=== PATIENT | female | born 1950 | race Caucasian/White ===

== ENCOUNTER → 2024-12-27 | Outpatient (CLI) | payer MEDICARE, SELFPAY ==
[2024-12-27 14:23] LABS: Hematocrit 32.5 % (37-47); Hemoglobin 11.0 g/dL (12.0-15.0); Immature Granulocytes Count 0.030 X10^3/uL (0.0-0.0); Mean Corp Hgb Conc 33.8 g/dL (32-36); Mean Corpuscular Volume 94.2 fL (81-99); Mean Platelet Vol. 9.3 fl (6.2-12.0); NRBC Flagged by Analyzer 0 % (0-5); Platelet Count 430 K/mm3 (150-450); RBC Distribution Width CV 12.8 % (11.6-14.6); RBC Distribution Width SD 44.3 fl (35.1-43.9); Red Blood Count 3.45 M/mm3 (4.2-5.4); White Blood Count 8.7 K/mm3 (4.4-11.0)
[2024-12-27 15:36] LABS: AST(SGOT) 23 U/L (<=31); Alanine Aminotransfer ALT/SGPT 11 U/L (<=34); Albumin, Serum 3.8 g/dL (3.4-4.8); Alkaline Phosphatase 178 U/L (35-104); Anion Gap 12 (5-15); BUN 17 mg/dL (4-19); BUN/Creat Ratio 22.7 RATIO (10-20); Calcium,Total 9.0 mg/dL (7.6-11.0); Carbon Dioxide 24.3 mmol/L (21.0-32.0); Chloride 100 mmol/L (98-108); Ferritin 257 ng/mL (22-378); Globulin 2.9 g/dL (2.2-4.2); Glucose 141 mg/dL (70-99); Potassium 3.9 mmol/L (3.3-5.1); Vitamin B12 576 pg/mL (180-914); Vitamin D,25 Hydroxy 14.5 ng/mL (30-100)
[2024-12-27 16:06] LABS: Iron 58 ug/dL (50-170); Iron Binding Capacity,Total 251 ug/dL (250-450); Iron Binding Capacity,Unsat 193 ug/dL (228-428); Magnesium 2.2 mg/dL (1.5-2.2)
[2024-12-27 17:42] LABS: FOLATES,SERUM (FOLIC ACID) 5.77 ng/mL (4.60-34.80)
--- OUTSIDE RECORDS SUMMARY | 2024-12-27 21:21 | XMS RPT_ITS | CCD ---
Author Organization [facility] Care Team Providers Care Compensation And Benefits Manager Name Role Phone SHARI, TAB Unavailable Unavailable SHARI, TAB Unavailable Unavailable SHARI, TAB Unavailable Unavailable SHARI, TAB Unavailable Unavailable SHARI, TAB Unavailable Unavailable Hubert Forrest MD Primary Care Provider Hubert Forrest MD Primary Care Provider Hubert Forrest Referring Unavailable Hubert Forrest Primary Care Unavailable Reddy Sanchez Attending Unavailable Hubert Forrest MD Primary Care Provider Negra IMMIGRATION CONSULTANT.Ban ZIMMERMAN Unavailable Marco Antonio IMMIGRATION CONSULTANT.Milton ZIMMERMAN Unavailable ALISHA TA Referring Unavailable HUBERT FORREST Primary Care Unavailable ALISHA TA Attending Unavailable BAN OMER Referring UnavailHUBERT [place] Primary Care Unavailable BAN OMER Attending UnavailHUBERT [place] Primary Care Unavailable HEENA LÓPEZ Attending Unavailable HUBERT FORREST Primary Care Unavailable HEENA LÓPEZ Attending Unavailable HUBERT FORREST Primary Care Unavailable JORDI MONREAL JR Attending Unavailable BAN OMER Referring Unavailabl HUBERT Pierre Primary Care Unavailable Allergies Allergy Classification Reported Allergen(s) Allergy Type Date of Onset Reaction(s) Facility (20 sources) amoxicillin; Translations: [AMOXICILLIN] Drug Allergy 0 Rash [facility] Repository (20 sources) atorvastatin; Translations: [ATORVASTATIN] Drug Allergy 3 Other: See Comments [facility] Rep[facility] (20 sources) codeine; Translations: [CODEINE] Drug Allergy 6 Intolerance [facility] Rep[facility] (20 sources) guaiFENesin; Translations: [GUAIFENESIN] Drug Allergy 2 Hives [facility] Repository (1 source) atorvastatin Drug Allergy 3 [facility] Repository Medications Current Medications Medication Drug Class(es) Dates Sig (Normalized) Sig (Original) clobetasol propionate 0.0005 mg/mg topical ointment (1 source) Corticosteroid Start: 05-28-2022 End: 06-27-2022 clobetasol (TEMOVATE) 0.05 % ointment Apply 1 application to affected area twice daily. 30 g 1 05/28/2022 06/27/2022 Active Comment on above: Apply 1 application to affected area twice daily. Lactobac no.41/Bifidobact no.7 (PROBIOTIC-10 ORAL) (18 sources) Lactobac no.41/Bifidobact no.7 (PROBIOTIC-10 ORAL) Take by mouth. Active Lactobac no.41/B ifidobact no.7 (PROBIOTIC-10 ORAL) Take by mouth. 0 Active Comment on above: Take by mouth. memantine hydrochloride 10 mg oral tablet (10 sources) Q-vrdyvz-B-aspartat e Receptor Antagonist Start: 4 End: 5 take 1 tablet by mouth twice daily memantine (NAMENDA) 10 mg tablet Take 1 tablet by mouth two times a day. (start after completing 5mg tab titration) 180 tablet 1 09/21/2024 03/20/2025 Active Start: 02-19-2024 End: 04-20-2024 memantine (NAMENDA) 5 mg tab let Take 1 tablet in AM x1 week, then increase to 1 tablet BID x1 week, then increase to 1 tablet in AM and 2 tablets in PM x1 week. After completing 5 mg Rx, then transition to 10mg tabs (separate Rx). 42 tablet 02/19/2024 04/20/2024 Discontinued omeprazole 20 mg delayed release oral capsule (20 sources) Proton Pump Inhibitor take 1 capsule by mouth once daily omeprazole (PRILOSEC) 20 mg capsule Take 20 mg by mouth once daily. Active Comment on above: Take 20 mg by mouth once daily. rosuvastatin calcium 20 mg oral tablet (20 sources) HMG-CoA Reductase Inhibitor Start: 2 End: 3 rosuvastatin (CRESTOR) 20 mg tablet take 1 tablet daily 90 tablet 3 04/13/2023 Active Start: 04-19-2020 End: 05-02-2022 take 1 tablet by mouth once daily rosuvastatin (CRESTOR) 20 mg tablet Take 1 tablet by mouth once daily. 90 tablet 3 04/22/2021 05/02/2022 Discontinued Comment on above: Take 1 tablet by rosemarie th once daily. take 1 tablet daily terbinafine 250 mg oral tablet (12 sources) Allylamine Antifungal Start: take 1 tablet by mouth once daily terbinafine HCl (LAMISIL) 250 mg tablet Take 1 tablet by mouth once daily. 30 tablet 2 10/23/2023 Active Completed/Discontinued Medications Medication Drug Class(es) Dates Sig (Normalized) Sig (Original) aspirin 81 mg delayed release oral tablet (2 sources) Platelet Aggregation Inhibitor, Nonsteroidal Anti-inflammatory Drug Start: 11-25-2012 End: 03-11-2022 take 1 tablet by mouth once daily aspirin, enteric coated (ADULT LOW DOSE ASPIRIN) 81 mg EC tablet Take 1 tablet by mouth once daily. 0 11/25/2012 03/11/2022 Discontinued Comment on above: Take 1 tablet by rosemarie th once daily. BENEFIBER, WHEAT DEXTRIN, ORAL (9 sources) End: 10-06-2022 BENEFIBER, WHEAT DEXTRIN, ORAL Take 1 teaspoonful by mouth every other day. 0 10/06/2022 Discontinued BENEFIBER, WHEAT DEXTRIN, ORAL Take 1 teaspoonful by mouth every other day. 0 Active Comment on above: Take 1 teaspoonful b y mouth every other day. famotidine 10 mg oral tablet (1 source) Histamine-2 Receptor Antagonist Start : 03-21 End: 03-07 take 1 tablet by mouth twice daily as needed for gastroesophageal reflux disease famotidine (PEPCID) 10 mg tablet Indications: Functional dyspepsia Take 1 tablet by mouth twice daily as needed (Heartburn). 60 tablet 2 03/21/2019 03/07/2021 Discontinued meloxicam 15 mg oral tablet (1 source) Nonsteroidal Anti-inflammatory Drug Start : 09-22 End: 09-23 -2021 take 1 tablet by mouth once daily at mealtime meloxicam (MOBIC) 15 mg tablet Indications: Foot pain, right Take 1 tablet by mouth once daily. Take with food. 30 tablet 1 09/22/2020 03/07/2021 Discontinued Methylcellulose (1 source) End: 03-07 take 2 tablets by mouth once daily methylcellulose (CITRUCEL ORAL) Take 2 tablets by mouth once daily. 03/07/2021 Discontinued sertraline 25 mg oral tablet (20 sources) Serotonin Reuptake Inhibitor Start : 10-21 End: 04-19 take 1 tablet by mouth once daily sertraline (ZOLOFT) 25 mg tablet Indications: Anxiety with depression Take 1 tablet by mouth once daily. 90 tablet 1 10/22/2023 11/30/2023 Discontinued Start: 05-05-2022 End: 11-30-2023 sertraline (ZOLOFT) 50 mg ta blet Indications: Depression, unspecified depression type take 1 tablet daily 90 tablet 3 05/04/2023 11/30/2023 Discontinued Start: 07-04-2020 End: 05-02-2022 take 1 tablet by mouth once daily sertraline (ZOLOFT) 50 mg tablet Indications: Depression, unspecified depression type Take 1 tablet by mouth once daily. 90 tablet 3 06/17/2021 05/02/2022 Discontinued Comment on above: Take 1 tablet by rosemarie th once daily. take 1 tablet daily Problems Active Problems Problem Classification Problem Date Documented Da te Episodic/Chronic Anxiety disorders (3 sources) Mixed anxiety and depressive disorder; Translations: [Other specified anxiety disorders] Onset: 11-30-2023 10-22-2023 Chronic Cancer of uterus (20 sources) Adenocarcinoma of endometrium; Translations: [Malignant neoplasm of endometrium] Onset: 09-02-2012 09-02-2012 Chronic Cardiac dysrhythmias (2 sources) Bradycardia; Translations: [Bradycardia, unspecified] Onset: 06-03-2023 04-01-2023 Episodic Conditions associated with dizziness or vertigo (3 sources) Dizziness; Translations: [Dizziness and giddiness] Episodic Coronary atherosclerosis and other heart disease (1 source) Atherosclerotic heart disease of creek coronary artery without angina pectoris; Translations: [Atherosclerotic heart disease of creek coronary artery without angina pectoris] Onset: 06-03-2023 Chronic Delirium, dementia, and amnestic and other cognitive disorders (3 sources) Dementia; Translations: [Moderate dementia with anxiety, unspecified dementia type (HCC)] 02-19-2024 Chronic Diseases of white blood cells (20 sources) Other drug-induced agranulocytosis; Translations: [Drug induced neutropenia] Onset: 01-26-2013 01-26-2013 Chronic Disorders of lipid metabolism (20 sources) Mixed hyperlipidemia; Translations: [Mixed hyperlipidemia] Onset: 06-17-2010 10-06-2017 Chronic Essential hypertension (20 sources) Hypertensive disorder; Translations: [Essential (primary) hypertension] Onset: 06-03-2023 09-24-2012 Chronic Mood disorders (20 sources) Depressive disorder; Translations: [Depression] Onset: 10-06-2022 07-28-2017 Chronic Nutritional deficiencies (20 sources) Deficiency of macronutrients; Translations: [Unspecified protein-calorie malnutrition] Onset: 10-06-2022 Chronic Osteoarthritis (20 sources) Degenerative joint disease involving multiple joints; Translations: [Polyosteoarthritis, unspecified] Onset: 08-05-2005 08-05-2005 Chronic Other and unspecified benign neoplasm (2 sources) Neuroma; Translations: [Benign neoplasm of peripheral nerves and autonomic nervous system, unspecified] 01-07-2024 Episodic Other connective tissue disease (2 sources) Pain in toe; Translations: [Pain in left toe(s)] 10-22-2023 Episodic Other connective tissue disease (1 source) Pain in right foot; Translations: [Pain in right foot] 09-22-2020 Episodic Other ear and sense organ disorders (2 sources) Ear pressure sensation; Translations: [Other specified disorders of ear, bilateral] Episodic Other gastrointestinal disorders (20 sources) Constipation; Translations: [Constipation, unspecified] 07-01-2005 Episodic Other nervous system disorders (2 sources) Impairment of balance; Translations: [Other abnormalities of gait and mobility] Episodic Other nervous system disorders (2 sources) Finding of hand region; Translations: [Tremor, unspecified] Episodic Other nutritional; endocrine; and metabolic disorders (2 sources) Weight loss; Translations: [Abnormal weight loss] Episodic Other screening for suspected conditions (not mental disorders or infectious disease) (2 sources) Mammography abnormal; Translations: [Other abnormal and inconclusive findings on diagnostic imaging of breast] Episodic Other skin disorders (1 source) Dystrophia unguium; Translations: [Nail dystrophy] 01-07-2024 Episodic Peripheral and visceral atherosclerosis (20 sources) Vascular disorder; Translations: [Peripheral vascular disease, unspecified] Onset: 05-31-2012 05-31-2012 Chronic Residual codes; unclassified (1 source) Postmenopausal state; Translations: [Asymptomatic menopausal state] Episodic Unclassified (1 source) Unknown / UNK(Unknown) Onset: 04-02-2017 Unclassified (1 source) Moderate dementia with anxiety, unspecified dementia type (HCC); Translations: [Moderate dementia with anxiety, unspecified dementia type (HCC)] Onset: 09-21-2024 Past or Other Problems Problem Classification Problem Date Documented Da te Episodic/Chronic Abdominal pain (20 sources) Right lower quadrant pain; Translations: [Right lower quadrant pain] Onset: 06-17-2011 Resolved: 06-23-2017 07-03-2017 Episodic Allergic reactions (20 sources) Solar degeneration; Translations: [Other skin changes due to chronic exposure to nonionizing radiation] Onset: 08-08-2009 Resolved: 06-23-2017 06-17-2010 Episodic Deficiency and other anemia (20 sources) Anemia; Translations: [Anemia, unspecified] Onset: 02-16-2013 02-16-2013 Episodic Gastritis and duodenitis (20 sources) Gastritis; Translations: [Gastritis, unspecified, without bleeding] Onset: 01-07-2007 Resolved: 01-07-2007 01-07-2007 Episodic Menopausal disorders (15 sources) Atrophy of vagina; Translations: [Postmenopausal atrophic vaginitis] Onset: 08-17-2012 Resolved: 04-16-2016 Chronic Mycoses (3 sources) Onychomycosis; Translations: [Tinea unguium] Onset: 01-07-2024 10-22-2023 Episodic Other and unspecified benign neoplasm (20 sources) Melanocytic nevus of trunk; Translations: [Melanocytic nevi of trunk] Onset: 08-08-2009 Resolved: 06-23-2017 06-17-2010 Episodic Other and unspecified benign neoplasm (1 source) Benign neoplasm of peripheral nerves and autonomic nervous system, unspecified; Translations: [Neuroma] Onset: 01-07-2024 Episodic Other connective tissue disease (1 source) Pain in left toe(s); Translations: [Pain around toenail, left foot] Onset: 01-07-2024 Episodic Other disorders of stomach and duodenum (20 sources) Nonulcer dyspepsia; Translations: [Functional dyspepsia] Onset: 07-03-2017 07-03-2017 Episodic Other gastrointestinal disorders (2 sources) Alteration in bowel elimination; Translations: [Change in bowel habit] Onset: 07-03-2017 07-03-2017 Episodic Other gastrointestinal disorders (20 sources) Altered bowel function; Translations: [Change in bowel habit] Onset: 07-03-2017 07-03-2017 Episodic Other nervous system disorders (4 sources) Other symptoms and signs involving cognitive functions and awareness; Translations: [Other signs and symptoms involving cognition] Onset: 11-30-2023 11-30-2023 Episodic Other non-epithelial cancer of skin (14 sources) History of malignant neoplasm of skin; Translations: [Personal history of other malignant neoplasm of skin] Onset: 08-08-2009 Resolved: 06-17-2010 06-17-2010 Episodic Other nutritional; endocrine; and metabolic disorders (20 sources) Abnormal weight loss; Translations: [Abnormal weight loss] Onset: 07-03-2017 07-03-2017 Episodic Other skin disorders (14 sources) Actinic keratosis; Translations: [Actinic keratosis] Onset: 08-08-2009 Resolved: 06-17-2010 06-17-2010 Episodic Other skin disorders (20 sources) Seborrheic keratosis; Translations: [Other seborrheic keratosis] Onset: 08-08-2009 Resolved: 06-23-2017 06-17-2010 Episodic Other skin disorders (20 sources) Solar lentigo; Translations: [Other melanin hyperpigmentation] Onset: 08-08-2009 Resolved: 06-23-2017 06-17-2010 Episodic Other skin disorders (14 sources) Scar conditions and fibrosis of skin; Translations: [Scar conditions and fibrosis of skin] Onset: 08-08-2009 Resolved: 06-17-2010 06-17-2010 Episodic Other skin disorders (14 sources) Inflamed seborrheic keratosis; Translations: [Inflamed seborrheic keratosis] Onset: 11-10-2011 Resolved: 06-23-2017 06-23-2017 Episodic Other skin disorders (14 sources) Idiopathic guttate hypomelanosis; Translations: [Other specified disorders of pigmentation] Onset: 11-10-2011 Resolved: 06-23-2017 06-23-2017 Episodic Other skin disorders (14 sources) Asteatosis cutis; Translations: [Xerosis cutis] Onset: 07-22-2013 Resolved: 06-23-2017 06-23-2017 Episodic Syncope (1 source) Syncope and collapse Onset: 04-02-2017 Episodic Viral infection (14 sources) Verruca vulgaris; Translations: [Viral wart, unspecified] Onset: 07-22-2013 Resolved: 06-23-2017 06-23-2017 Episodic Results Test Name Value Interpretation Reference Range Facility CNOVon 09-21-2024 CNOV Office Visit (NEMOWS ) ----- JENNIFER BARBOZA ([id number]) 1950 F Date Time Provider Department 09/21/24 1:30 PM HEENA LÓPEZ During your visit today, we recorded the following information about you: Pulse Blood pressure Weight 86/minute 102/74 54 kg Heena López PA-C 09/21/2024 2:32 PM Signed [facility] Name: Jennifer Barboza Age: [age] year old Gender: female Primary Care Provider: Hubert Forrest MD 09/21/2024 - General Neurology, Heena López PA-C ASSESSMENT ASSESSMENT/PLAN: 1. Moderate dementia with anxiety, unspecified dementia type (HCC) - ICD9: 294.21, ICD10: F03.B4 Patient and family present for follow-up, feel the patient is doing well, stable. Still living alone, weight and appetite are stable. Doing well on Namenda 10 mg twice daily without any side effects. MoCA slightly decreased from previous but patient and daughter reporting worsening hearing. Has not had her hearing aids checked since last year, recommended having this evaluation done. Does report some worsening anxiety, did increase Zoloft to primary care about reports it did not help with the mood and just made her more sedated. Discussed medications that may be helpful, deferring to primary care judgment. Discussed possible referral to geriatric psych in the future should it be needed. No falls, no aggression, personality changes, wandering, hallucinations. Sleep has been stable, appetite has been stable. No other new concerns today. Will continue with Namenda 10 mg twice daily and encouraged increasing physical and cognitive activity. Patient currently lives alone but has daily visitors, no longer driving, we will continue to monitor. Patient agreeable to treatment plan of care at this time, all questions were answered. Patient to follow-up in 6 months. Alzheimer's Society: Join to learn about many resources and supports for you, as the caregiver Community Resources: E.g. [facility] Dementia [facility] on the [place] side [facility]. CERTIFIED PROSTHETIST/OT/PT: Speech therapy, Occupational therapy, Physical Therapy Driving: Do you have safety concerns? Power of [employer]/ planning of the patient's will Project Lifesaver: Local police will keep records of your loved one if they tend to get lost, and will bring them home. Lifeline: emergency response button/necklace/bracelet Caregiver Health: Important to ensure you are taking care of your mental and physical health so you can care for your loved one SW consult: Do you want a social work referral to understand what resources are available to you? This is a 74 year old female followed for memory loss Current medication treatment: Namenda 10 mg twice daily Indication for repeat cognitive testing: No No diagnosis found. Return in about 6 months (around 03/23/2025). Chart, labs,and relevant images reviewed. Chief Complaint:Patient presents with: Established Patient: C/o not being to cure issues, daughter feels it helps a little, no decline since medication Chart Review: 04/20/24 Last Filed Values Date of Most Recent Assessment and Plan 04/20/24 Specialty General Neurology Assessment ASSESSMENT/PLAN: 1. Cognitive changes - ICD9: 799.59, ICD10: R41.89 (primary diagnosis) 2. Moderate dementia with anxiety, unspecified dementia type (HCC) - ICD9: 294.21, ICD10: F03.B4 Patient with likely mild to moderate dementia based off of MRI imaging, MoCA testing. Was started on Namenda at last appointments with titration up to 10 mg twice daily and that she is doing well with this. Daughter noting some subjective improvement in word recall and patient reporting that its helpful for her anxiety. Would like to continue this medication. Deferring any further workup at this time including neuropsychological testing. Patient does live alone in a condo, but daughter visits twice a day and she does have neighbors close by. Is fairly physically active and cognitively active, does have some difficulty maintaining weight but actually gained a few pounds since last appointment. However, due to weight being an issue will avoid Aricept. At this time, encouraged conservative therapy including physical and cognitive activity and will continue Namenda 10 mg twice daily. No new symptoms that would warrant additional workup. Discussed with daughter if resources are ever needed or if she ever needs help to reach out to him would be happy to discuss resources available in the area. Patient otherwise doing well, patient does not drive. Patient and daughter agreeable to treatment plan of care at this time, questions were answered. Patient to follow-up in 4 to 5 months. Heena López PA-C HPI: Last seen for memory concerns on 04/20/24. Doing well on namenda 10mg bid, deferring any further work up, visits by daughter twice daily. Weight stable. [place] (more content not included)... Normal [facility] CNOVon 04-20-2024 CNOV Office Visit (PATEL ) ----- JENNIFER BARBOZA ([id number]) 1950 F Date Time Provider Department 04/20/24 12:30 PM HEENA LÓPEZ During your visit today, we recorded the following information about you: Pulse Blood pressure Weight 60/minute 161/75 53.7 kg Heena López PA-C 04/20/2024 1:21 PM Signed [facility] Name: Jennifer Barboza Age: [age] year old Gender: female Primary Care Provider: Hubert Forrest MD 04/20/2024 - General Neurology, Heena Lpóez PA-C ASSESSMENT ASSESSMENT/PLAN: 1. Cognitive changes - ICD9: 799.59, ICD10: R41.89 (primary diagnosis) 2. Moderate dementia with anxiety, unspecified dementia type (HCC) - ICD9: 294.21, ICD10: F03.B4 Patient with likely mild to moderate dementia based off of MRI imaging, MoCA testing. Was started on Namenda at last appointments with titration up to 10 mg twice daily and that she is doing well with this. Daughter noting some subjective improvement in word recall and patient reporting that its helpful for her anxiety. Would like to continue this medication. Deferring any further workup at this time including neuropsychological testing. Patient does live alone in a condo, but daughter visits twice a day and she does have neighbors close by. Is fairly physically active and cognitively active, does have some difficulty maintaining weight but actually gained a few pounds since last appointment. However, due to weight being an issue will avoid Aricept. At this time, encouraged conservative therapy including physical and cognitive activity and will continue Namenda 10 mg twice daily. No new symptoms that would warrant additional workup. Discussed with daughter if resources are ever needed or if she ever needs help to reach out to him would be happy to discuss resources available in the area. Patient otherwise doing well, patient does not drive. Patient and daughter agreeable to treatment plan of care at this time, questions were answered. Patient to follow-up in 4 to 5 months. Heena López PA-C This is a 74 year old female followed for memory loss. Current medication treatment: Namenda 10mg bid Indication for repeat cognitive testing: No No diagnosis found. No follow-ups on file. Chart, labs,and relevant images reviewed. Chief Complaint:No chief complaint on file. Chart Review: 02/19/[address] Monreal ASSESSMENT/PLAN: 1. Moderate dementia with anxiety, unspecified dementia type (HCC) - ICD9: 294.21, ICD10: F03.B4 (primary diagnosis) 2. Cognitive changes - ICD9: 799.59, ICD10: R41.89 Patient with history and exam findings to suggest a moderate progressive dementia with associated anxiety. MRI brain completed as above, and while not a volumetric study, showing moderate atrophy for age of both cortical and central nature. Metabolic causes have been ruled out, and pt history and MRI not suggestive of NPH. No clear history to suggest pseudodementia. Pattern of cognitive change and imaging not suggestive of a vascular dementia. No changes on MRI to suggest CAA. Given family history, suspect neurodegenerative process and possible Alzheimer's type dementia. Dx d/w pt and her daughter. At this time, I do not feel benefit in further imaging, with pt not wanting any further testing and daughter agrees. However, do feel attempts to treat and slow progression of disease is appropriate. D/w pt and daughter treatment options and will initiate Namenda 5mg that will be titrated up to 10mg BID over next 4 weeks. SE and ADRs d/w pt and daughter. In addition discussed the need for additional care at home, and feel that patient should NOT drive or operate heavy machinery. Daughter states they are working on increasing patient care at this time. I have also encouraged brain exercises and attempts to increase social interaction. Patient will follow up in ~3 months or sooner prn. Jordi Monreal MD HPI: Last saw Dr. Monreal, one year of progressive cognitive decline, however, daughter notes longer. [place] , MRI showing atrophy. Concerned for dementia, alzheimers. Started [id number] bid, working on pt care. Patient presents with her daughter for follow-up appointment. At last appointment she was found to have mild to moderate dementia, concerning for Alzheimer based off previous imaging and MoCA. Deferring further testing at this time. Was placed on Namenda 10 mg twice daily and notes improvement in her anxiety since starting this. Daughter notes improvement in some of her short-term memory and word recall. Notes that she no longer takes a long time to search for certain words. No side effects with it including lightheadedness, GI upset or other. No falls since last appointment, no new concerns or symptoms today. Notes that her sleep has been stable, no wandering or worsening confusion in the evening. Pa (more content not included)... [facility] [facility] CNOV Office Visit (NEMOWS ) ----- JENNIFER [id number]) 1950 F Date Time Provider Department 02/19/24 9:20 AM JORDI MONREAL JR During your visit today, we recorded the following information about you: Pulse Blood pressure Weight 57/minute 137/71 52.3 kg Jordi Monreal Jr., MD 02/21/2024 10:07 PM Signed NEW PATIENT (CONSULT) HISTORY AND PHYSICAL EXAM PRIMARY CARE PHYSICIAN: Hubert Forrest MD REASON FOR CONSULT: Memory loss REFERRING PHYSICIAN: Ban Omer APRN.C* CHIEF COMPLAINT: Memory loss Consultation requested by Ban Omer APRN.C* for an opinion regarding chief complaint of Patient presents with: New Patient: Memory difficulty, family hx alz and my final recommendations will be communicated back to the requesting physician by way of shared medical record or letter via US mail. HISTORY OF PRESENT ILLNESS: Jennifer Barboza is a 74 year old female, BMI 18.35 kg/m2 with a PMH significant for that noted below. Presents for approximately 1 year history of progressive cognitive decline. However, daughter present and feels that symptoms might have started in 2018. Pt's mother was diagnosed with dementia in 1993 while in later 60's. Patient lives by self. Patient states in the past year does not react to things going on on the road as well although no MVAs - pt quit driving on her own. Always feels like things were changing but does not specify. Daughter provides history of pt having difficulties keeping weight on and forgetting meals. Daughter does grocery shopping. Forgets immediate close family members names. Forgets stories that happened within 24 hours. Struggles with numbers and daughter has taken over bank accounts and paying bills. No longer can write a list. Daughter feels more progressive than abrupt decline. Pt's passed in 2019 which might have accelerated decline per pt's daughter. Pt with hearing aids for 10 years, but although unchanged, pt acts like they are brand new per daughter. No longer can make coffee. However, daughter feels still safe at moment but working towards 24 hour care. No history of leaving water running, stove top on, or getting lost when was driving. Pt denies depression or anxiety but just states sometimes it is good and sometimes it is bad. Daughter feels pt more anxious. Modified MOCA: Immediate recall: 08/17, 3/5, 4/5 Number repeat: 2 Sentence repeat: 07/17 Serial 7s: 100-93-93 06/17 Abstract: 07/17 Orientation: Sept, ?, ?, Wed, ? 07/21 Delayed recall: 07/20 Namin/3 Clock draw: ([place] only) 06/17 MRI brain on 10/31/22 per rad report: Parenchyma: There is moderate generalized parenchymal volume loss. The brain parenchyma is otherwise within normal limits of signal intensity and morphology. Ventricles: Ventriculomegaly corresponds to the degree of parenchymal volume loss. TSH Date Value Ref Range Status 10/07/2022 2.830 0.270 - 4.200 mIU/L Final Vitamin B12 Date Value Ref Range Status 10/07/2022 436 232 - 1,245 pg/mL Final REVIEW OF SYSTEMS GENERAL:No weight loss, malaise or fevers. HEENT:Negative for frequent or significant headaches, No changes in hearing or vision, no nose bleeds or other nasal problems NECK:Negative for lumps, goiter, pain and significant neck swelling RESPIRATORY: Negative for cough, wheezing or shortness of breath. CARDIOVASCULAR: Negative for chest pain or palpitations. GASTROINTESTINAL: Negative for abdominal discomfort, blood in stools or black stools or change in bowel habits GENITOURINARY: No history of dysuria, frequency or incontinence MUSCULOSKELETAL: Negative for joint pain or swelling, back pain or muscle pain. NEUROLOGIC:Negative for focal numbness or weakness, headaches and dizziness or syncope, vision changes, speech/language changes, changes in gait or falls -- besides those complaints as above in HPI. SKIN:Negative for lesions, rash, and itching. PSYCHIATRIC: Negative for sleep disturbance, mood disorder and recent psychosocial stressors. LAB/IMAGING: Reviewed and include: WBC (k/uL) Date Value 10/07/2022 7.30 RBC (m/uL) Date Value 10/07/2022 3.62 (L) Hemoglobin (g/dL) Date Value 10/07/2022 11.8 Hematocrit (%) Date Value 10/07/2022 35.6 (L) MCV (fL) Date Value 10/07/2022 98.3 MCH (pg) Date Value 10/07/2022 32.6 MCHC (g/dL) Date Value 10/07/2022 33.1 RDW-CV (%) Date Value 10/07/2022 12.4 Platelet Count (k/uL) Date Value 10/07/2022 297 MPV (fL) Date Value 10/07/2022 10.2 Glucose (mg/dL) Date Value 10/07/2022 85 BUN (mg/dL) Date Value 10/07/2022 15 Creatinine (mg/dL) Date Value 10/07/2022 0.87 Sodium (mmol/L) Date Value 10/07/2022 141 Potassium (mmol/L) Date Value 10/07/2022 3.8 Chloride (mmol/L) Date Value 10/07/2022 104 CO2 (mmol/L) Date Value 10/07/2022 26 Protein, Total (g/dL) Date V (more content not included)... Normal [facility] CNOVon 01-07-2024 CNOV Office Visit (PODIWS ) ----- JENNIFER BARBOZA ([id number]) 1950 F Date Time Provider Department 01/07/24 10:00 AM ALISHA TA PODIWS During your visit today, we recorded the following information about you: Dilcia Barboza LPN 01/07/2024 12:56 PM Signed AMB ROOMING INTAKE FLOWSHEET DATA Pain Pain Level: 5 Pain Location: Toe Description: Sore Duration Amount of Time: 6 Duration Units: Months Frequency: Intermittent Intervention/Comfort measure: Reposition, Relaxation Patient presents with: Left Great Toe - New, Nail Fungus Right Great Toe - New, Nail Fungus, Mass, Pain DENZEL Ang Matthew 01/07/2024 12:56 PM Signed Consultation requested by Dr. Omer for an opinion regarding nail deformity and pain in left foot. My final recommendations will be communicated back to the requesting physician by way of shared Medical record or letter to requesting physician via US mail. Initial Podiatric Office Visit: Chief Complaint: This 73 year old female who presents with chief complaint:b/l great toenail pain and pain to ball of left foot HPI Edwin presents to clinic for evaluation of b/l feet Her primary issue is pain to b/l great toenail. Has been present since early 2023. She treats the nails with debridement. She denies any history of trauma. She has been on lamisil and is tolerating this medication nicely. 2. Also complains of pain to the ball of left foot. Patient states the pain is present whenever she is walking. Does not matter if she is wearing a shoe or not. PAIN EVALUATION 01/07/2024 1017 Pain Level: 5 Pain Location: Toe Description: Sore Duration Amount of Time: 6 Duration Units: Months Frequency: Intermittent Intervention/Comfort measure: Reposition;Relaxation No results found for: HBA1C PCP: Hubert Forrest MD PAST MEDICAL HISTORY Diagnosis Date Acute gastritis without mention of hemorrhage chronic CAD (coronary artery disease) Heart cath (06/2010) showed small vessel disease Depressive disorder, not elsewhere classified chronic depression Diverticulosis of colon (without mention of hemorrhage) 07/31/05 Endometrial cancer (HCC) partial cervix remains Generalized osteoarthrosis, unspecified site hands HTN (hypertension) Internal hemorrhoids without mention of complication 07/31/05 PMH - PAST MEDICAL HISTORY OF climacteric Snoring Unspecified constipation Current Outpatient Medications Medication Sig terbinafine HCl (LAMISIL) 250 mg tablet Take 1 tablet by mouth once daily. rosuvastatin (CRESTOR) 20 mg tablet take 1 tablet daily Lactobac no.41/Bifidobact no.7 (PROBIOTIC-10 ORAL) Take by mouth. omeprazole (PRILOSEC) 20 mg capsule Take 20 mg by mouth once daily. (Patient not taking: Reported on 04/01/2023) No current facility-administered medications for this visit. ALLERGIES Allergen Reactions Codeine Intolerance hallucinations Lipitor [Atorvastat* Other: See Comments Muscle cramps and joint pains Mucinex [Guaifenesi* Hives Amoxacillin [Amoxic* Rash PAST SURGICAL HISTORY Procedure Laterality Date COLONOSCOPY FLX DX W/COLLJ SPEC WHEN PFRMD 07/31/05 Per repeat in COLONOSCOPY FLX DX W/COLLJ SPEC WHEN PFRMD 07/03/14 Colonoscopy ESOPHAGOGASTRODUODENOSCOP Y TRANSORAL DIAGNOSTIC 08/11/2017 EGD LAPS TOTAL HYSTERECT 250 GM/< W/RMVL TUBE/OVARY 09/2012 part cervix remains/Laparoscopic hysterectomy, bilateral salpingo-oophorectomy, bilateral pelvic and right para-aortic lymphadenectomy, and cystoscopy. LIG/TRNSXJ FLP TUBE ABDL/VAG APPR UNI/BI Tubal ligation PAST SURGICAL HISTORY OF 11/2016 skin lesions that were benign TONSILLECTOMY PRIMARY/SECONDARY Tonsillectomy FAMILY HISTORY Problem Relation Age of Onset Alzheimer's Disease Mother Hypertension Mother Stroke Father Hypertension Father Diabetes Brother Arthritis Hypertension Brother other (carotid surgery) Brother Breast Cancer Maternal Aunt Arthritis Brother other (Multiple Myeloma) Brother Breast Cancer Paternal Aunt Diabetes Paternal Uncle x 4 Diabetes Paternal Aunt x1 Social History Tobacco Use Smoking status: Former Packs/day: 0.50 Years: 5.00 Additional pack years: 0.00 Total pack years: 2.50 Types: Cigarettes Quit date: 04/15/1968 Years since quittin.7 Smokeless tobacco: Never Vaping Use Vaping Use: Never used Substance Use Topics Alcohol use: Yes Comment: Ocassionally Drug use: No REVIEW OF SYSTEMS GENERAL: Negative for Malaise, significant weight loss, fever RESPIRATORY: Negative for cough, wheezing and shortness of breath CARDIOVASCULAR: Negative for chest pain, leg swelling and palpitations GI: Negative for abdominal discomfort, blood in stools or black stools and change in bowel habits : Negative for dysuria, frequency and incontinence MUSCULOSKELETAL: Negative for joint (more content not included)... Normal [facility] XR FOOT 3V AP/LAT/OBL LTon 0 01-07-2024 XR FOOT 3V AP/LAT/OBL LT * * *Final Report* * * DATE OF EXAM: Jan 07 2024 11:05AM [id number] [id number] - XR FOOT 3V AP/LAT/OBL LT / PROCEDURE REASON: Neuroma * * * * Physician Interpretation * * * * PROCEDURE: Left foot INDICATION: Neuroma .feels like a marble on plantar side of left foot distal 5th Mt area no inj TECHNIQUE: XR FOOT 3V AP/LAT/OBL LT COMPARISON: 09/22/2020, AP view only FINDINGS: No acute fracture or dislocation. Osteoarthritic change in the toes. No erosion or focal soft tissue swelling. Small plantar calcaneal spur. IMPRESSION: No acute abnormality Burring Wheel Operator: BARBARA Transcribe Date/Time: Jan 10 2024 9:07A Dictated by : ENDY COOLEY MD This examination was interpreted and the report reviewed and electronically signed by: ENDY COOLEY MD on Jan 10 2024 9:08AM EST [id number] Normal [facility] CNOVon 11-30-2023 CNOV Office Visit (FAMPWS ) ----- JENNIFER BARBOZA ([id number]) 1950 F Date Time Provider Department 11/30/23 11:20 AM BAN [facility]ER [facility] During your visit today, we recorded the following information about you: Pulse Respiration Blood pressure Weight 57/minute 16/minute 124/56 52.2 kg Ban Omer APRN.DATABASES COMPUTER CONSULTANT 11/30/2023 12:09 PM Signed This is a 73 year old female who presents today with: No chief complaint on file. HISTORY OF PRESENT ILLNESS: Jennifer Barboza is a 73 year old female. No chief complaint on file. 1 month follow up. Anxiety: Last month increase Zoloft to 75 mg daily. Patient feels like she doesn't notice much of a difference. She still has loss of interest in doing things and feeling down. Her appetite is still decreased. She reports eating 2 meals a day and grazes throughout the day. Denies SI/HI. Memory: Patient reports she has noticed increased memory difficulty. She reports that she will think of a word and forget it-Memory Recall. She reports she stopped driving because she knows her memory is changing. Denies forgetting to turn off the stove/oven. Mother was diagnosed with Alzheimer's. Toenail injury, referral was placed at last office visit for consult with podiatry. Has appointment in two weeks. PAST MEDICAL HISTORY: PAST MEDICAL HISTORY Diagnosis Date Acute gastritis without mention of hemorrhage chronic CAD (coronary artery disease) Heart cath (06/2010) showed small vessel disease Depressive disorder, not elsewhere classified chronic depression Diverticulosis of colon (without mention of hemorrhage) 07/31/05 Endometrial cancer (HCC) partial cervix remains Generalized osteoarthrosis, unspecified site hands HTN (hypertension) Internal hemorrhoids without mention of complication 07/31/05 PMH - PAST MEDICAL HISTORY OF climacteric Snoring Unspecified constipation PAST SURGICAL HISTORY Procedure Laterality Date COLONOSCOPY FLX DX W/COLLJ SPEC WHEN PFRMD 07/31/05 Per repeat in COLONOSCOPY FLX DX W/COLLJ SPEC WHEN PFRMD 07/03/14 Colonoscopy ESOPHAGOGASTRODUODENOSCOP Y TRANSORAL DIAGNOSTIC 08/11/2017 EGD LAPS TOTAL HYSTERECT 250 GM/< W/RMVL TUBE/OVARY 09/2012 part cervix remains/Laparoscopic hysterectomy, bilateral salpingo-oophorectomy, bilateral pelvic and right para-aortic lymphadenectomy, and cystoscopy. LIG/TRNSXJ FLP TUBE ABDL/VAG APPR UNI/BI Tubal ligation PAST SURGICAL HISTORY OF 11/2016 skin lesions that were benign TONSILLECTOMY PRIMARY/SECONDARY Tonsillectomy ALLERGIES Codeine, Lipitor [Atorvastatin], Mucinex [Guaifenesin], and Amoxacillin [Amoxicillin] MEDICATIONS Current Outpatient Medications Medication Sig terbinafine HCl (LAMISIL) 250 mg tablet Take 1 tablet by mouth once daily. sertraline (ZOLOFT) 25 mg tablet Take 1 tablet by mouth once daily. sertraline (ZOLOFT) 50 mg tablet take 1 tablet daily rosuvastatin (CRESTOR) 20 mg tablet take 1 tablet daily Lactobac no.41/Bifidobact no.7 (PROBIOTIC-10 ORAL) Take by mouth. omeprazole (PRILOSEC) 20 mg capsule Take 20 mg by mouth once daily. (Patient not taking: Reported on 04/01/2023) No current facility-administered medications for this visit. FAMILY HISTORY Problem Relation Age of Onset Alzheimer's Disease Mother Hypertension Mother Stroke Father Hypertension Father Diabetes Brother Arthritis Hypertension Brother other (carotid surgery) Brother Breast Cancer Maternal Aunt Arthritis Brother other (Multiple Myeloma) Brother Breast Cancer Paternal Aunt Diabetes Paternal Uncle x 4 Diabetes Paternal Aunt x1 Social History Tobacco Use Smoking status: Former Packs/day: 0.50 Years: 5.00 Additional pack years: 0.00 Total pack years: 2.50 Types: Cigarettes Quit date: 04/15/1968 Years since quittin.6 Smokeless tobacco: Never Vaping Use Vaping Use: Never used Substance Use Topics Alcohol use: Yes Comment: Ocassionally Drug use: No REVIEW OF SYSTEMS GENERAL: No weight loss, malaise or fevers/chills HEENT: Negative for frequent or significant headaches, No changes in hearing or vision. NECK: Negative for lumps, goiter, pain and significant neck swelling RESPIRATORY: Negative for cough, hemoptysis, wheezing, dyspnea or shortness of breath CARDIOVASCULAR: Negative for chest pain, leg swelling, orthopnea, or palpitations GI: No nausea, vomiting, or diarrhea/constipation. No hematochezia/melena. No heartburn or reflux symptoms. : No history of dysuria, frequency or incontinence MUSCULOSKELETAL: Negative for joint pain or swelling. SKIN: Negative for lesions, rash, and itching ENDOCRINE: Negative for cold or heat intolerance, polyuria, polydipsia and goiter NEURO: No history of headaches, syncope, paralysis, seizures or tremors. + Memory changes MOOD: Negative for suicidal ideation. +sadness EXAM: BP 124/56 Puls (more content not included)... Normal [facility] CNCOon 11-25-2023 CNCO Letter Text Normal [facility] 12 Lead EKG performed by [facility] on 06-03-2023 12 [place] [address] 12 Lead EKG performed by [facility] 06/03/23 1336 MR#: [id number] Acct: [id number] Name: JENNIFER BARBOZA Rep #: [id number] : 1950 73 From: Reddy Sanchez MD Attending Dr: Dr. Reddy Sanchez MD Status: DEP A MB Ordering Dr: Reddy Sanchez MD Date: 06/03/23 Location: [facility] Sex: F C Admitted: BMS/12 Lead EKG performed by [facility] ECG Report Interpretation -Sinus Bradycardia WITHIN NORMAL LIMITSElectronically signed on 06/03/2023 at 16:50 by Daniel,[place] [employer] Version [id number] 06/03/23 1656 Date Reddy Sanchez MD CC: Dr. Hubert Forrest MD Date Dictated: 06/03/231335 Date Transcribed: 06/03/231335 Burring Wheel Operator: CO Signed Normal [facility] Cardiology Visit Reporton Cardiology Visit Report [facility] [address] [place] [address] OFFICE VISIT Date of Service: 06/03/23 MR#: [id number] Acct: [id number] Name: JENNIFER BARBOZA Rep #: [id number] : 1950 Provider: Dr. Reddy Sanchez MD Age/Sex: 73/F Location: [facility] Status: Signed HPI HPI History of Present Illness Details: 73-year-old lady with no previous cardiac history who says that she had been having some periods of dizziness as well as. She noted to have a slow heart rate. She was evaluated with an echocardiogram which demonstrated preserved left ventricular systolic function. She has had no dizziness or diaphoresis no near syncope or syncope. She has not had to see you in the office and was referred here for further evaluation and management. At this particular time she appears to be doing well she has had a slow heart rate for many years but she is very active. She has had no dizziness or diaphoresis no near syncope or syncope her last echocardiogram demonstrated action fraction of 59% ???5 normal diastolic function and normal RV function and no valvular abnormalities. Her physical exam here is unremarkable her electrocardiogram demonstrates sinus bradycardia with a rate of 55 bpm. 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: No Accompanied by: Daughter Is patient in pain?: No Allergies amoxicillin [Amoxicillin] Allergy (Verified 06/03/23 13:41) Rash guaifenesin [From Mucinex] Allergy (Verified 06/03/23 13:41) Hives atorvastatin calcium [From Lipitor] Adverse Reaction (Verified 06/03/23 13:41) Pain in joints codeine Adverse Reaction (Verified 06/03/23 13:41) Other Medications sertraline 50 mg tablet 50 mg PO DAILY 03/25/13 [History Confirmed 06/03/23] omeprazole 20 mg capsule,delayed release 20 mg PO DAILY 04/24/23 [History Confirmed 06/03/23] rosuvastatin 10 mg tablet 20 mg PO QHS 04/24/23 [History Confirmed 06/03/23] [facility] Medical History Atherosclerotic heart disease of creek coronary artery without angina pectoris Bradycardia Depression Diverticulosis of colon Endometrial cancer Essential (primary) hypertension Gastritis Hyperlipidemia Osteoarthritis Family History Mother Alzheimer disease Hypertension Father CVA (cerebral vascular accident) Hypertension Brother Diabetes Hypertension Cancer Status post carotid surgery Social History Smoking Status: Former smoker alcohol intake: current alcohol intake frequency: holidays/special occasions only substance use type: does not use ROS Const Const: Positive for fatigue; Negative for weakness, headache(s), daytime sleepiness or difficulty sleeping Eyes Eyes: Negative for change in vision ENT ENT: Positive for dizziness; Negative for headache(s) or Nosebleed/epistaxis Cardio Chest Pain: No Palpitations: No Edema: None Resp Respiratory: Negative for SOB with activity, SOB at rest, SOB orthopnea SOB lying down or Cough GI GI: Negative nausea, vomiting or heartburn Neuro Neuro: Positive for dizziness and near syncope; Negative for lightheadedness, headache(s) or weakness Endo Endo: Positive for fatigue Cardiology Exam Const Appearance: cooperative, healthy appearing, no acute distress, well developed and well groomed Nutritional Appearance: average body habitus and well nourished Orientation: alert, awake and oriented x3 Head Head: normal to inspection, normocephalic and atraumatic Ears: hearing grossly normal bilaterally and external ears normal Nose: external nose normal, nares normal, nasal mucous membranes and turbinates normal, septum normal and no nasal discharge Face and Sinus: face symmetric Mouth: oral mucosae normal, tongue normal, oropharynx normal and moist mucous membranes Teeth and gingiva: dentition normal Throat: posterior oropharynx normal, tonsils normal and uvula midline Eyes General: appearance normal, both eyes and all related structures Eyelids: eyelids normal Conjunctivae: conjunctivae normal Pupils: PERRL, normal by confrontation and accommodation normal EOM: EOM intact bilaterally Neck Neck: normal visual inspection, trachea midline and no JVD JVD: +5 Carotids: normal carotid upstroke and bounding pulses Chest Chest inspection: normal inspection of the chest, symmetric chest movement and normal respiratory effort Auscultation: Bilateral: Clear to Auscultation Cardio Palpation: normal PMI Rate: regular rat (more content not included)... Normal [facility] MRI BRAIN WO IVCONon 023 [facility] DIAG W LORETA RTon 023 [facility] SCREENINGon 07-29-2022 [facility] XR Foot - right AP and Later al and obliqueon 09-23-2020 * * *Final Report* * * DATE OF EXAM: Sep 22 2020 11:58AM [id number] [id number] - XR FOOT 3V AP/LAT/OBL RT / PROCEDURE REASON: Foot pain, right * * * * Physician Interpretation * * * * Indication: Right foot pain Comparison: None 3 views of the right foot are obtained. There is no acute fracture or dislocation. There is narrowing of the right first metatarsophalangeal joint with marginal osteophytes. There is fusion of the PIP joint of the third toe. There is narrowing of multiple interphalangeal joints. Small plantar calcaneal spur. Impression: 1. No acute fracture or dislocation. 2. Degenerative disease of the right foot Burring Wheel Operator: PSCB Transcribe Date/Time: Sep 23 2020 4:40P Dictated by : ENDER GUADARRAMA MD This examination was interpreted and the report reviewed and electronically signed by: ENDER GUADARRAMA MD on Sep 23 2020 4:42PM [facility] DIV[facility] OF RADIOLOGY Provider, [facility] - 09/23/2020 * * *Final Report* * * DATE OF EXAM: Sep 22 2020 11:58AM [id number] - XR FOOT 3V AP/LAT/OBL RT / PROCEDURE REASON: Foot pain, right * * * * Physician Interpretation * * * * Indication: Right foot pain Comparison: None 3 views of the right foot are obtained. There is no acute fracture or dislocation. There is narrowing of the right first metatarsophalangeal joint with marginal osteophytes. There is fusion of the PIP joint of the third toe. There is narrowing of multiple interphalangeal joints. Small plantar calcaneal spur. Impression: 1. No acute fracture or dislocation. 2. Degenerative disease of the right foot Burring Wheel Operator: BARBARA Transcribe Date/Time: Sep 23 2020 4:40P Dictated by : ENDER GUADARRAMA MD This examination was interpreted and the report reviewed and electronically signed by: ENDER GUADARRAMA MD on Sep 23 2020 4:42PM EST [facility] XR Foot - right AP and Later al and obliqueOrdered By: [facility]cf Provider on 09-23-2020 [facility] XR Foot - right AP and Later al and obliqueon 09-22-2020 Radiology Study observation (narrative) [facility] OBSOLETEon 03-14-2018 OBSOLETE Refill (AGCARDWST) MONET BARBOZA ([id number]) 1950 FDate Time Provider Department03/14/18 TAB MCCARTHY AGCARDWST During your visit today, we recorded the following information about you:Allergies As of Date: 03/14/2018 Noted Allergy ReactionCODEINE 06/30/2005 5 - Intolerance Comments: hallucinationsLIPITOR (ATORVASTATIN) 08/25/2012 14 - Other: See Comments Comments: Muscle cramps and joint painsMUCINEX (GUAIFENESIN) 12/04/2011 4 - HivesAMOXACILLIN (AMOXICILLIN) 10/16/2009 2 - RashDate Reviewed: 02/26/2018Reviewed by: Leslye LambertStudent Liaison OfficerFlaquita Sung - Fully AssessedReason for Visit: Refill Request [94]Order(s):rosuvastatin (CRESTOR) 20 mg tabletTAKE 1 TABLET DAILYDisp: 90 tabletRfl: 3Prescriptions as of 03/14/2018 Sig: ROSUVASTATIN 20 MG TABLET TAKE 1 TABLET DAILY RANITIDINE 150 MG TABLET Take 1 tablet by mouth once d* SERTRALINE 50 MG TABLET Take 1 tablet by mouth once d* NITROGLYCERIN 0.4 MG SUBLINGU* Dissolve 1 tablet under the t* ASPIRIN 81 MG TABLET,DELAYED * Take 1 tablet by mouth once d*Problem List As Of Date 03/14/2018 Noted Resolved Depression [F32.9] ACUTE GASTRITIS W/O HEMORRHAGE [K29.00] 01/07/2007 CONSTIPATION NOS [K59.00] GENERAL OSTEOARTHROSIS [M15.9] INVALID FOR* GASTRITIS/DUODEN NOS W/O HEMORRH [K29.70, K29.9*INVALID FOR* Actinic Keratosis (Premalignant AK) [L57.0] INVALID FOR*06/17/2010 Seborrheic Keratosis [L82.1] INVALID FOR*06/17/2010 Melanocytic Nevus: Intradermal of Trunk: back [*INVALID FOR*06/17/2010 Solar lentigo [L81.4] INVALID FOR*06/17/2010 Actinic Damage///Sun-Damaged Skin [L57.8] INVALID FOR*06/17/2010 Surgical Scar Fibrosis of Skin: L cheek by nos*INVALID FOR*06/17/2010 History of BCC Skin Cancer: L cheek face: 12/01*INVALID FOR*06/17/2010 Hyperlipidemia, mixed [E78.2] INVALID FOR* Groin pain [R10.30] INVALID FOR*06/23/2017 Irritated//Inflamed Seborrheic Keratosis [L82.0]INVALID FOR*06/23/2017 Actinic skin damage [L57.8] INVALID FOR*06/23/2017 Other Seborrheic Keratoses [L82.1] INVALID FOR*06/23/2017 Solar Lentigines [L81.4] INVALID FOR*06/23/2017 Melanocytic nevus of trunk: Intradermal Nevus o*INVALID FOR*06/23/2017 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 HTN (hypertension) [I10] Drug induced neutropenia [D70.2] INVALID FOR* Anemia [D64.9] INVALID FOR* Viral warts, unspecified [B07.9] INVALID FOR*06/23/2017 Xerosis cutis [L85.3] INVALID FOR*06/23/2017 Abnormal weight loss [R63.4] INVALID FOR* More... Chronic RLQ pain [R10.31, G89.29] INVALID FOR* More... Functional dyspepsia [K30] INVALID FOR* More... Altered bowel habits [R19.4] INVALID FOR* More...Prescriptions ordered this encounter Disp Refills Start End ROSUVASTATIN 20 MG TABLET 90 t* 3 03/15/2018 Sig: TAKE 1 TABLET DAILYMedications Discontinued During This Encounter rosuvastatin (CRESTOR) 20 mg tablet 90 t* 3 04/23/2017 03/15/2018 Class: [facility] Route: ORAL Sig: Take 1 tablet by mouth once daily. Disc: Reason for discontinue is not on file. Status:Closed by KIANNA HARVEY MA on 03/15/18 [facility] OBSOLETEon 04-23-2017 OBSOLETE Refill (AGCARDWST) MONET BARBOZA ([id number]) 1950 [facility] Time Provider Fckmlfxosm00/9/17 TAB MCCARTHY During your visit today, we recorded the following information about you:Seamus Cruz, RN, RN 04/23/2017 9:41 AM SignedPatient phones requesting refills as follows:Pending Prescriptions Disp Refills ROSUVASTATIN 20 MG TABLET 90 tablet 3 Sig: Take 1 tablet by mouth once daily. YOUNG: No Please review and advise.Seamus Cruz EDVINignacio has been identified by name and date of : YesRX INSTRUCTIONS:Patient aware RX will be sent to pharmacy. No need to notify patient.Tanja Patricio MD 04/23/2017 12:25 PM SignedThe following approved medication requests have been transmitted electronically.Signed Prescriptions Disp Refills rosuvastatin (CRESTOR) 20 mg tablet 90 tablet 3 Sig: Take 1 tablet by mouth once daily. YOUNG: No Authorizing Provider: TAB MCCARTHY MDAdam Gilmor, RN, RN 04/23/2017 1:57 PM Signedescript confirmedAllergies As of Date: 04/23/2017 Noted Allergy ReactionCODEINE 06/30/2005 5 - Intolerance Comments: hallucinationsLIPITOR (ATORVASTATIN) 08/25/2012 14 - Other: See Comments Comments: Muscle cramps and joint painsMUCINEX (GUAIFENESIN) 12/04/2011 4 - HivesAMOXACILLIN (AMOXICILLIN) 10/16/2009 2 - RashDate Reviewed: 04/23/2017Reviewed by: Kay Perera Ma - Fully AssessedReason for Visit: Refill Request [94]Order(s):rosuvastatin (CRESTOR) 20 mg tabletTake 1 tablet by mouth once daily.Disp: 90 tabletRfl: 3Prescriptions as of 04/23/2017 Sig: ROSUVASTATIN 20 MG TABLET Take 1 tablet by mouth once d* AMLODIPINE 2.5 MG TABLET Take 1 tablet by mouth once d* NITROGLYCERIN 0.4 MG SUBLINGU* Dissolve 1 tablet under the t*X AMLODIPINE 5 MG TABLET Take 0.5 tablets by mouth onc* RANITIDINE 150 MG TABLET Take 1 tablet by mouth once d* ASPIRIN 81 MG TABLET,DELAYED * Take 1 tablet by mouth once d*Problem List As Of Date 04/23/2017 Noted Resolved DEPRESSIVE DISORDER NEC [F32.9] ACUTE GASTRITIS W/O HEMORRHAGE [K29.00] 01/07/2007 CONSTIPATION NOS [K59.00] GENERAL OSTEOARTHROSIS [M15.9] INVALID FOR* GASTRITIS/DUODEN NOS W/O HEMORRH [K29.70, K29.9*INVALID FOR* Actinic Keratosis (Premalignant AK) [L57.0] INVALID FOR*06/17/2010 Seborrheic Keratosis [L82.1] INVALID FOR*06/17/2010 Melanocytic Nevus: Intradermal of Trunk: back [*INVALID FOR*06/17/2010 Solar lentigo [L81.4] INVALID FOR*06/17/2010 Actinic Damage///Sun-Damaged Skin [L57.8] INVALID FOR*06/17/2010 Surgical Scar Fibrosis of Skin: L cheek by nos*INVALID FOR*06/17/2010 History of BCC Skin Cancer: L cheek face: 12/01*INVALID FOR*06/17/2010 Other and unspecified hyperlipidemia [E78.5] INVALID FOR* Arteriovenous fistula [I77.0] INVALID FOR* Groin pain [R10.30] INVALID FOR* Irritated//Inflamed Seborrheic Keratosis [L82.0]INVALID FOR* Actinic skin damage [L57.8] INVALID FOR* Other Seborrheic Keratoses [L82.1] INVALID FOR* Solar Lentigines [L81.4] INVALID FOR* Melanocytic nevus of trunk: Intradermal Nevus o*INVALID FOR* 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 HTN (hypertension) [I10] Drug induced neutropenia [D70.2] INVALID FOR* Anemia [D64.9] INVALID FOR* Actinic Keratosis: Premalignant AK [L57.0] INVALID FOR* Viral warts, unspecified [B07.9] INVALID FOR* Xerosis cutis [L85.3] INVALID FOR*Prescriptions ordered this encounter Disp Refills Start End ROSUVASTATIN 20 MG TABLET 90 t* 3 04/23/2017 Class: [facility] Route: ORAL Sig: Take 1 tablet by mouth once daily.Medications Discontinued During This Encounter rosuvastatin (CRESTOR) 20 mg tablet 90 t* 3 10/22/2015 04/23/2017 Route: ORAL Sig: Take 1 tablet by mouth once daily. Disc: Reason for discontinue is not on file. Status:Closed by SEAMUS CRUZ on 04/23/17 [facility] Vital Signs Date Time Vital Sign Value Performing Clinician Marc price 09-21-2024 13:29-0400 Body mass index (BMI) [Ratio] 18.92 kg/m2 Heena Mojicaer PA-C Work Phone: [facility] 09-21-2024 13:29-0400 Body weight 53.98 kg Heena Mojicaer PA-C Work Phone: [facility] 09-21-2024 13:29-0400 Diastolic blood pressure 74 mm[Hg] Heena Mojicaer PA-C Work Phone: [facility] 09-21-2024 13:29-0400 Heart rate 86 /min Heena Mojicaer PA-C Work Phone: [facility] 09-21-2024 13:29-0400 SaO2% (BldA) [Mass fraction] 95 % Heena Mojicaer PA-C Work Phone: [facility] 09-21-2024 13:29-0400 Systolic blood pressure 102 mm[Hg] Heena Mojicaer PA-C Work Phone: [facility] 04-20-2024 12:35-0500 Body mass index (BMI) [Ratio] 18.82 kg/m2 Heena Mojicaer PA-C Work Phone: [facility] 04-20-2024 12:35-0500 Body weight 53.71 kg Heena Mojicaer PA-C Work Phone: [facility] 04-20-2024 12:35-0500 Diastolic blood pressure 75 mm[Hg] Heena Mojicaer PA-C Work Phone: [facility] 04-20-2024 12:35-0500 Heart rate 60 /min Heena Mojicaer PA-C Work Phone: [facility] 04-20-2024 12:35-0500 SaO2% (BldA) [Mass fraction] 99 % Heena López GORDON-C Work Phone: [facility] 04-20-2024 12:35-0500 Systolic blood pressure 161 mm[Hg] Heena Mojicavalente PA-C Work Phone: [facility] 02-19-2024 09:23-0400 Body mass index (BMI) [Ratio] 18.35 kg/m2 Jordi Monreal Jr., MD Work Phone: [facility] 02-19-2024 09:23-0400 Body weight 52.34 kg Jordi Monreal Jr., MD Work Phone: [facility] 02-19-2024 09:23-0400 Diastolic blood pressure 71 mm[Hg] Jordi Monreal Jr., MD Work Phone: [facility] 02-19-2024 09:23-0400 Heart rate 57 /min Jordi Monreal Jr., MD Work Phone: [facility] 02-19-2024 09:23-0400 SaO2% (BldA) [Mass fraction] 99 % Jordi Monreal Jr., MD Work Phone: [facility] 02-19-2024 09:23-0400 Systolic blood pressure 137 mm[Hg] Jordi Monreal Jr., MD Work Phone: [facility] 11-30-2023 11:21-0400 Body mass index (BMI) [Ratio] 18.28 kg/m2 Ban Omer APRN.DATABASES COMPUTER CONSULTANT Work Phone: [facility] 11-30-2023 11:21-0400 Body weight 52.16 kg Ban Omer APRN.DATABASES COMPUTER CONSULTANT Work Phone: [facility] 11-30-2023 11:21-0400 Diastolic blood pressure 56 mm[Hg] Ban Omer APRN.DATABASES COMPUTER CONSULTANT Work Phone: [facility] 11-30-2023 11:21-0400 Heart rate 57 /min Ban Tannhof IMMIGRATION CONSULTANT.DATABASES COMPUTER CONSULTANT Work Phone: [facility] 11-30-2023 11:21-0400 Respiratory rate 16 /min Ban Tannhof IMMIGRATION CONSULTANT.DATABASES COMPUTER CONSULTANT Work Phone: [facility] 11-30-2023 11:21-0400 SaO2% (BldA) [Mass fraction] 100 % Ban Tannhof IMMIGRATION CONSULTANT.DATABASES COMPUTER CONSULTANT Work Phone: [facility] 11-30-2023 11:21-0400 Systolic blood pressure 124 mm[Hg] Ban Tannhof IMMIGRATION CONSULTANT.DATABASES COMPUTER CONSULTANT Work Phone: [facility] 10-22-2023 11:02-0400 Body mass index (BMI) [Ratio] 18.06 kg/m2 Ban Tannhof IMMIGRATION CONSULTANT.DATABASES COMPUTER CONSULTANT Work Phone: [facility] 10-22-2023 11:02-0400 Body temperature 98.71 [degF] Ban Tannhof IMMIGRATION CONSULTANT.DATABASES COMPUTER CONSULTANT Work Phone: [facility] 10-22-2023 11:02-0400 Body weight 51.53 kg Ban Tannhof IMMIGRATION CONSULTANT.DATABASES COMPUTER CONSULTANT Work Phone: [facility] 10-22-2023 11:02-0400 Diastolic blood pressure 76 mm[Hg] Ban Tannhof IMMIGRATION CONSULTANT.DATABASES COMPUTER CONSULTANT Work Phone: [facility] 10-22-2023 11:02-0400 Heart rate 60 /min Ban Tannhof IMMIGRATION CONSULTANT.DATABASES COMPUTER CONSULTANT Work Phone: [facility] 10-22-2023 11:02-0400 Respiratory rate 16 /min Ban Tannhof IMMIGRATION CONSULTANT.DATABASES COMPUTER CONSULTANT Work Phone: [facility] 10-22-2023 11:02-0400 Systolic blood pressure 116 mm[Hg] Ban Tannhof IMMIGRATION CONSULTANT.DATABASES COMPUTER CONSULTANT Work Phone: [facility] 04-01-2023 10:22-0400 Body weight 52.62 kg Ban Tannhof IMMIGRATION CONSULTANT.DATABASES COMPUTER CONSULTANT Work Phone: [facility] 04-01-2023 10:22-0400 Diastolic blood pressure 56 mm[Hg] Ban Tannhof IMMIGRATION CONSULTANT.DATABASES COMPUTER CONSULTANT Work Phone: [facility] 04-01-2023 10:22-0400 Heart rate 63 /min Ban Tannhof IMMIGRATION CONSULTANT.DATABASES COMPUTER CONSULTANT Work Phone: [facility] 04-01-2023 10:22-0400 Respiratory rate 16 /min Bandusty Pandahof IMMIGRATION CONSULTANT.DATABASES COMPUTER CONSULTANT Work Phone: [facility] 04-01-2023 10:22-0400 SaO2% (BldA) [Mass fraction] 98 % Ban Amarilyshof IMMIGRATION CONSULTANT.DATABASES COMPUTER CONSULTANT Work Phone: [facility] 04-01-2023 10:22-0400 Systolic blood pressure 92 mm[Hg] Ban Pandahof IMMIGRATION CONSULTANT.DATABASES COMPUTER CONSULTANT Work Phone: [facility] 10-06-2022 17:48-0400 Body weight 52.98 kg Hubert Forrest MD Work Phone: [facility] 10-06-2022 17:48-0400 Diastolic blood pressure 76 mm[Hg] Hubert Forrest MD Work Phone: [facility] 10-06-2022 17:48-0400 Heart rate 62 /min Hubert Forrest MD Work Phone: [facility] 10-06-2022 17:48-0400 Respiratory rate 16 /min Hubert Forrest MD Work Phone: [facility] 10-06-2022 17:48-0400 Systolic blood pressure 108 mm[Hg] Hubert Forrest MD Work Phone: [facility] 06-27-2022 11:37-0500 Body weight 54.16 kg Berna Lam IMMIGRATION CONSULTANT.CNM Work Phone: [facility] 06-27-2022 11:37-0500 Diastolic blood pressure 70 mm[Hg] Berna Lam IMMIGRATION CONSULTANT.CNM Work Phone: [facility] 06-27-2022 11:37-0500 Systolic blood pressure 126 mm[Hg] Berna Lam IMMIGRATION CONSULTANT.CNM Work Phone: [facility] Encounters Encounter Date Encounter Type Care Provider Facility Start: 11-22-2024 End: 11-22-2024 ambulatory Mayra Salgado [facility] Start: 11-22-2024 End: 11-22-2024 Patient encounter procedure Mayra Salgado MA [facility] Comment on above: Population Health Na vigation Outreach ([employer] [place] [facility]) Start: 09-21-2024 End: 09-21-2024 Patient encounter procedure Heena López PA-C Work Phone: Neurology Comment on above: Moderate dementia wi th anxiety, unspecified dementia type (HCC) (Primary Dx) Start: 09-21-2024 End: 09-21-2024 ambulatory [facility] Facility:[facility] Start: 08-05-2024 End: 08-05-2024 ambulatory Clare Wolfe Plaso [facility] Start: 08-05-2024 End: 08-05-2024 Patient encounter procedure Clare L Plaso [facility] Comment on above: Population Health Na vigation Outreach ( [employer] High Risk Attempt 1) Start: 07-08-2024 End: 07-08-2024 ambulatory Mayra Salagdo MA [facility] Start: 07-08-2024 End: 07-08-2024 Patient encounter procedure Mayra Salgado MA [facility] Comment on above: Population Health Na vigation Outreach ([employer] - [place] [employer]) Start: 04-20-2024 End: 04-20-2024 Patient encounter procedure Heena López PA-C Work Phone: Neurology Comment on above: Cognitive changes (P rimary Dx); Moderate dementia with anxiety, unspecified dementia type (HCC) Start: 04-20-2024 End: 04-20-2024 ambulatory [facility] Facility:[facility] Start: 02-19-2024 End: 02-19-2024 Patient encounter procedure Jordi Monreal MD Work Phone: Neurology Comment on above: Moderate dementia wi th anxiety, unspecified dementia type (HCC) (Primary Dx); Cognitive changes Start: 02-19-2024 End: 02-19-2024 ambulatory JORDI MONREAL JR Facility:[facility] Start: 02-17-2024 End: 02-17-2024 ambulatory Mely Brown MA [facility] Start: 02-17-2024 End: 02-17-2024 [facility] Comment on above: Population Health Na vigation Outreach ([employer] ) Start: 01-07-2024 End: 01-07-2024 Subsequent hospital visit by physician Ben [facility] [place] Work Phone: Radiology Comment on above: Neuroma [D36.10] Start: 01-07-2024 End: 01-07-2024 ambulatory ALISHA NEGRITOMARY Facility:[facility] Start: 01-07-2024 End: 01-07-2024 Patient encounter procedure Alisha Ta Work Phone: Podiatry Comment on above: Onychodystrophy (Irena melissa Dx); Nail fungus; Neuroma Start: 12-28-2023 ambulatory Lee Ann Burgos MA [facility] Start: 12-28-2023 [facility] Comment on above: Population Health Na vigation Outreach ([employer] AWV/HCC and care gaps ) Start: 11-30-2023 End: 11-30-2023 Patient encounter procedure Ban Omer APRN.DATABASES COMPUTER CONSULTANT [facility] Comment on above: Anxiety with depress ion (Primary Dx); Pain around toenail, left foot; Cognitive changes Start: 11-30-2023 End: 11-30-2023 ambulatory BAN OMER Facility:[facility] Start: 10-23-2023 Telephone encounter Hubert love MD Work Phone: [facility] [place] Comment on above: Patient Question Start: 10-22-2023 End: 10-22-2023 Patient encounter procedure Ban Omer APRN.DATABASES COMPUTER CONSULTANT Work Phone: [facility] [place] Comment on above: Nail fungus (Primary Dx); Pain around toenail, left foot; Anxiety with depression Start: 08-04-2023 ambulatory Ernestine Medina MA [facility] [place] Comment on above: Population Health Na vigation Outreach ([facility] Medicare Project/) Start: 06-03-2023 End: 06-03-2023 ambulatory [facility] Facility:[facility] Start: 05-04-2023 Refill Milton BAKER RN.DATABASES COMPUTER CONSULTANT Work Phone: [facility] [place] Comment on above: Refill Request Start: 05-01-2023 Telephone encounter Milton wolfe IMMIGRATION CONSULTANT.DATABASES COMPUTER CONSULTANT Work Phone: [facility] [place] Comment on above: Results Start: 04-13-2023 Refill Milton BAKER RN.DATABASES COMPUTER CONSULTANT Work Phone: [facility] [place] Comment on above: Refill Request Start: 04-01-2023 End: 04-01-2023 Patient encounter procedure Ban Omer APRN.DATABASES COMPUTER CONSULTANT Work Phone: [facility] [place] Comment on above: Dizziness (Primary D x); Bradycardia; Ear pressure, right Start: 02-26-2023 ambulatory Rhianna Calzada MA [facility] [place] Comment on above: Population Health Na vigation Outreach ([facility]) Start: 02-13-2023 ambulatory Mayra (Pss) Dopart N [facility] Comment on above: Population Health Na vigation Outreach ([employer] care gaps) Start: 10-31-2022 End: 10-31-2022 Subsequent hospital visit by physician Mri Radio [facility] (I-Stat/1.5t) Work Phone: Radiology Comment on above: Weight loss [R63.4] Start: 10-13-2022 Telephone encounter Hubert love MD Work Phone: [facility] [place] Comment on above: Patient Question Start: 10-09-2022 Telephone encounter Ban collins APRN.CNP Work Phone: [facility] [place] Comment on above: Results (Labs ) Start: 10-06-2022 End: 10-06-2022 Patient encounter procedure Hubert Forrest MD Work Phone: [facility] [place] Comment on above: Dizziness (Primary D x); Weight loss; Balance disorder; Ear pressure, bilateral; Tremor of right hand; Depression, unspecified depression type; Hyperlipidemia, mixed; Functional dyspepsia; Protein-calorie malnutrition, unspecified severity (HCC); Major depressive disorder, single episode, mild (HCC); Peripheral vascular disease, unspecified (HCC); Malignant neoplasm of corpus uteri, except isthmus (HCC); Neutropenia, drug-induced (HCC) Start: 09-02-2022 End: 09-02-2022 Subsequent hospital visit by physician Diagnostic Mammo [facility] Mammogram Start: 08-01-2022 Telephone encounter Hubert love MD Work Phone: [facility] [place] Comment on above: Patient Question Start: 07-29-2022 Documentation procedure Mammog robert Coordinator [facility] Start: 07-29-2022 Letter encounter Mammography Coordinator [facility] Department Start: 07-29-2022 Telephone encounter Milton wolfe APRN.DATABASES COMPUTER CONSULTANT Work Phone: [facility] [place] Comment on above: Results Start: 07-29-2022 End: 07-29-2022 Subsequent hospital visit by physician Screen Mammo [facility] Mammogram Comment on above: Visit for screening mammogram [Z12.31] Start: 06-27-2022 End: 06-27-2022 Patient encounter procedure Berna Lam APRN.CNM Work Phone: OB/Gynecology Comment on above: Vaginal atrophy (Irena melissa Dx); Post-menopause Start: 05-02-2022 Refill Hubert arce MD Work Phone: Family [facility] [place] Comment on above: Refill Request Start: 03-13-2022 Telephone encounter Leslye vo APRN.DATABASES COMPUTER CONSULTANT Work Phone: Hematology/Oncology Comment on above: Results Start: 06-18-2021 Telephone encounter Hubert love MD Work Phone: [facility] [place] Comment on above: Results Start: 09-22-2020 End: 09-22-2020 Subsequent hospital visit by physician Ben [facility] [place] Work Phone: Radiology Comment on above: Foot pain, right [M7 9.671] Start: 05-04-2017 Ambulatory [facility] Facility :[facility] Start: 04-02-2017 End: 04-02-2017 Ambulatory [facility] Facility:[facility] Procedures Date Procedure Procedure Detail Performing Clinician Start: 10-31-2022 Mri brain brain stem w/o contrast material Hubert Forrest MD Work Phone: Start: 09-02-2022 Digital breast tomosynthesis unilateral Milton Marco Antonio IMMIGRATION CONSULTANT.DATABASES COMPUTER CONSULTANT Work Phone: Start: 07-29-2022 End: 07-29-2022 Mammography Hubert Forrest MD Work Phone: Start: 07-25-2021 Mammography Leslye Smith enter IMMIGRATION CONSULTANT.DATABASES COMPUTER CONSULTANT Work Phone: Start: 06-17-2021 Lipid 1996 panel - S vincenzo or Plasma Rhianna Calzada MA Start: 09-22-2020 Radex foot complete minimum 3 views Hubert Forrest MD Work Phone: Start: 07-03-2014 Colonoscopy Leslye Smith enter IMMIGRATION CONSULTANT.DATABASES COMPUTER CONSULTANT Work Phone: Plan of Treatment Date Care Activity Detail Author Start: 06-17-2026 Lipid 1996 panel - S vincenzo or Plasma Lipid Screening [facility] Start: 06-17-2026 Lipid panel Lipid Screening [facility] Start: 06-17-2026 LIPID SCREEN LIPID SCREEN [facility] Start: 10-07-2025 DIABETES SCREEN DIABETES SCREEN [facility] Start: 10-07-2025 Diabetes Screening Diabetes Screenin g [facility] Start: 09-21-2025 BP Controlled (<130/80) BP Controlle d (<130/80) [facility] Start: 03-28-2025 End: 03-28-2025 Patient encounter procedure 03/28/2025 3:00 PM EDT Office Visit Neurology [address] [facility] [place] [address] Heena López PA-C [address] [place] [address] 6 month follow up Neurology Comment on above: 6 month follow up Start: 02-13-2025 Influenza vaccination Influenz a Vaccine (Season Ended) [facility] Start: 11-29-2024 Annual PCP Team Engineering Vice President herb Disease Visit Annual PCP Team Chronic Disease Visit [facility] Start: 11-29-2024 BP Controlled (<130/80) BP Controlle d (<130/80) [facility] Start: 10-21-2024 Annual PCP Team Engineering Vice President herb Disease Visit Annual PCP Team Chronic Disease Visit [facility] Start: 10-21-2024 BP Controlled (<130/80) BP Controlle d (<130/80) [facility] Start: 08-23-2024 End: 08-23-2024 Patient encounter procedure 08/23/2024 11:00 AM EDT Office Visit Neurology [address] [place] [address] Heena López PA-C [address] [place], [place] [id number] follow up memory difficulty Neurology Comment on above: follow up memory dif ficulty Start: 07-03-2024 Colonoscopy COLONOSCOPY [facility] Start: 07-03-2024 COLORECTAL CANCER SCREENING COLORECTAL CANCER SCREENING [facility] Start: 07-03-2024 Screening for malign ant neoplasm of colon [facility] Start: 06-17-2024 DIABETES SCREEN DIABETES SCREEN [facility] Start: 06-15-2024 Advance Directive Discussion Advance Directive Discussion [facility] Start: 04-20-2024 End: 04-20-2024 Patient encounter procedure 04/20/2024 12:30 PM EST Office Visit Neurology [address] [place] [address] Heena López PA-C [address] [place], [place] [id number] follow up memory difficulty Neurology Comment on above: follow up memory dif ficulty Start: 04-01-2024 Annual PCP Team Engineering Vice President herb Disease Visit Annual PCP Team Chronic Disease Visit [facility] Start: 10-18-2024 BP Controlled (<130/80) BP Controlle d (<130/80) [facility] Start: 02-19-2024 End: 02-19-2024 Patient encounter procedure 02/19/2024 9:20 AM EDT Office Visit Neurology [address] [facility] [place] [address] Jordi Monreal Jr., MD [address] [phone] Cognitive changes [R41.89] Neurology Comment on above: Cognitive changes [R 41.89] Start: 02-14-2024 Covid-19 Vaccine ( season) Covid-19 Vaccine () [facility] Start: 02-14-2024 Covid-19 Vaccine () Covid-19 Vaccine () [facility] Start: 02-14-2024 Influenza vaccination [facility] Start: 01-07-2024 End: 01-07-2024 Patient encounter procedure 01/07/2024 10:00 AM EDT Office Visit Podiatry [address] [place] [address] Alisha Ta [address] [facility] [address] Nail fungus [B35.1]; Pain around toenail, left foot [M79.675] Podiatry Comment on above: Nail fungus [B35.1]; Pain around toenail, left foot [M79.675] Start: 12-31-2023 End: 12-31-2023 Patient encounter procedure 12/31/2023 11:20 AM EDT Office Visit [facility] [address] [place] [address] Ban Omer APRN.DATABASES COMPUTER CONSULTANT [address] [place] [address] 1 month med check/ memory [facility] Comment on above: 1 month med check/ [place] [facility] Start: 11-25-2023 End: 11-25-2023 Follow-up encounter 11/25/2023 9:40 AM EDT [facility] [place] [address] [place] [address] Ban Omer APRN.DATABASES COMPUTER CONSULTANT [address] [place] [place] [address] 4 wk follow up [facility] Comment on above: 4 wk follow up Start: 10-07-2023 ANNUAL PCP TEAM INVESTIGATOR HERB DISEASE VISIT ANNUAL PCP TEAM CHRONIC DISEASE VISIT [facility] Start: 10-07-2023 BP CONTROLLED (<130/80) BP CONTROLLE D (<130/80) [facility] Start: 07-29-2023 Mammography [facility] Start: 06-27-2023 BP CONTROLLED (<130/80) BP CONTROLLE D (<130/80) [facility] Start: 06-15-2023 Advance Directive Discussion Advance Directive Discussion [facility] Start: 05-28-2023 BP CONTROLLED (<130/80) BP CONTROLLE D (<130/80) [facility] Start: 03-11-2023 BP CONTROLLED (<130/80) BP CONTROLLE D (<130/80) [facility] Start: 02-13-2023 Covid-19 Vaccine ( season) Covid-19 Vaccine ( season) [facility] Start: 02-13-2023 Influenza vaccination [facility] Start: 01-28-2023 RSV Vaccine (1 - 1-d ose 75+ series) RSV Vaccine (1 - 1-dose 75+ series) [facility] Start: 10-06-2022 End: 12-06-2022 CBC W Auto Differential panel - Blood CBC + DIFF Lab Routine Weight loss Dizziness Balance disorder Tremor of right hand Expected: 10/06/2022, Expires: 12/06/2022 [facility] Work Phone: Comment on above: Expected: 10/06/2022 , Expires: 12/06/2022 Start: 10-06-2022 End: 12-06-2022 Cobalamin (Vitamin B12) [Mass/volume] in Serum or Plasma VITAMIN B12 BLOOD Lab Routine Dizziness Balance disorder Tremor of right hand Expected: 10/06/2022, Expires: 12/06/2022 [facility] Work Phone: Comment on above: Expected: 10/06/2022 , Expires: 12/06/2022 Start: 10-06-2022 End: 12-06-2022 Comprehensive metabolic 2000 panel - Serum or Plasma COMP METABOLIC PANEL Lab Routine Weight loss Dizziness Balance disorder Hyperlipidemia, mixed Expected: 10/06/2022, Expires: 12/06/2022 [facility] Work Phone: Comment on above: Expected: 10/06/2022 , Expires: 12/06/2022 Start: 10-06-2022 End: 12-06-2022 Thyrotropin [Units/volume] in Serum or Plasma TSH BLD Lab Routine Dizziness Balance disorder Tremor of right hand Expected: 10/06/2022, Expires: 12/06/2022 [facility] Work Phone: Comment on above: Expected: 10/06/2022 , Expires: 12/06/2022 Start: 07-25-2022 Mammography MAMMOGRAM [facility] Start: 06-17-2022 ANNUAL PCP TEAM INVESTIGATOR HERB DISEASE VISIT ANNUAL PCP TEAM CHRONIC DISEASE VISIT [facility] Start: 06-17-2022 HEPATITIS C SCREENING HEPATITIS C SC YOLANDE [facility] Comment on above: Postponed from 01/28 (Declined at this time) Start: 06-15-2022 ADVANCE DIRECTIVE DISCUSSION ADVANCE DIRECTIVE DISCUSSION [facility] Start: 02-13-2022 Influenza vaccination INFLUENZA (#1) [facility] Start: 12-03-2021 Urine microalbumin profile [facility] Start: 06-15-2021 ADVANCE DIRECTIVE DISCUSSION ADVANCE DIRECTIVE DISCUSSION [facility] Start: 03-29-2021 COVID-19 VACCINE (3 - Booster for Pfizer series) COVID-19 VACCINE (3 - Booster for Pfizer series) [facility] Start: 03-29-2021 COVID-19 VACCINE (3 - Pfizer series) COVID-19 VACCINE (3 - Pfizer series) [facility] Start: 12-30-2014 Pneumococcal Vaccine : 50+ (2 of 2 - PCV) Pneumococcal Vaccine: 50+ (2 of 2 - PCV) [facility] Start: 12-30-2014 Pneumococcal Vaccine : 65+ (2 - PCV) Pneumococcal Vaccine: 65+ (2 - PCV) [facility] Start: 12-30-2014 Pneumococcal Vaccine : 65+ (2 of 2 - PCV) Pneumococcal Vaccine: 65+ (2 of 2 - PCV) [facility] Start: 12-30-2014 PNEUMOCOCCAL: 65+ (2 - PCV) PNEUMOCOCCAL: 65+ (2 - PCV) [facility] Start: 2008 RSV Vaccine (1 - 1-d ose 60+ series) RSV Vaccine (1 - 1-dose 60+ series) [facility] Start: 01-28-1993 COLOGUARD (FIT-DNA) COLOGUARD (FIT-D NA) [facility] Start: 01-28-[address] COLONOGRAPHY [facility] Start: 01-28-1993 FECAL OCCULT BLOOD FECAL OCCULT BLOO D [facility] Start: 01-28-1993 Screening for malign ant neoplasm of colon [facility] Start: 01-28-1993 SIGMOIDOSCOPY SIGMOIDOSCOPY [facility] Start: 01-28-1966 Anxiety Screening Anxiety Screening [facility] Start: 01-28-1966 BP Controlled (<130/80) BP Controlle d (<130/80) [facility] Start: 01-28-1966 HEPATITIS C SCREENING HEPATITIS C [facility] Start: 01-28-1966 Hepatitis C screening Hepatitis C [facility] End: 08-28-2023 Diagnostic mammography computer-aided detcj uni [facility] Radiology Routine Abnormal mammogram 1 Occurrences starting 07/29/2022 until 08/28/2023 [facility] Work Phone: Comment on above: 1 Occurrences starti ng 07/29/2022 until 08/28/2023 End: 04-01-2024 ECG COMPLETE ECG COMPLETE ECG Routine Dizziness 1 Occurrences starting 04/01/2023 until 04/01/2024 [facility] Work Phone: Comment on above: 1 Occurrences starti ng 04/01/2023 until 04/01/2024 End: 04-01-2024 Echocardiography ECHO Cardiology Routine Dizziness 1 Occurrences starting 04/01/2023 until 04/01/2024 [facility] Work Phone: Comment on above: 1 Occurrences starti ng 04/01/2023 until 04/01/2024 End: 11-05-2023 Mri brain brain stem w/o contrast material MRI BRAIN WO IVCON Radiology Routine Weight loss Dizziness Balance disorder Tremor of right hand 1 Occurrences starting 10/06/2022 until 11/05/2023 [facility] Work Phone: Comment on above: 1 Occurrences starti ng 10/06/2022 until 11/05/2023 End: 08-28-2023 Us breast uni real time with image limited US BREAST LTD RT Radiology Routine Abnormal mammogram 1 Occurrences starting 07/29/2022 until 08/28/2023 [facility] Work Phone: Comment on above: 1 Occurrences starti ng 07/29/2022 until 08/28/2023 End: 04-01-2024 US CAROTID ARTERIES [facility] US CAROTID ARTERIES [facility] Vascular Lab Routine Dizziness 1 Occurrences starting 04/01/2023 until 04/01/2024 [facility] Work Phone: Comment on above: 1 Occurrences starti ng 04/01/2023 until 04/01/2024 End: 02-05-2025 XR Foot - left AP and Lateral and oblique XR FOOT GENERAL 3V AP/LAT/OBL LEFT Radiology Routine Neuroma 1 Occurrences starting 01/07/2024 until 02/05/2025 [facility] Work Phone: Comment on above: 1 Occurrences starti ng 01/07/2024 until 02/05/2025 XR Foot - left AP an d Lateral and oblique XR FOOT GENERAL 3V AP/LAT/OBL LEFT Radiology Routine Neuroma 01/07/2024 11:05 AM EDT [facility] [place] [facility] Immunizations Immunization Date Immunization Notes Care Provider Thierno gary 06-18-2020 zoster vaccine recombinant Leslye Sung IMMIGRATION CONSULTANT.DATABASES COMPUTER CONSULTANT Work Phone: [facility] Work Phone: 03-07-2020 zoster vaccine recombinant Leslye Sung IMMIGRATION CONSULTANT.DATABASES COMPUTER CONSULTANT Work Phone: [facility] Work Phone: 07-20-2018 influenza virus vacc ine, unspecified formulation Rhianna Zheng BERNARD [facility] 05-26-2016 influenza, high dose seasonal, preservative-free Leslye Sung IMMIGRATION CONSULTANT.DATABASES COMPUTER CONSULTANT Work Phone: [facility] 04-04-2014 influenza, high dose seasonal, preservative-free Leslye Sung IMMIGRATION CONSULTANT.DATABASES COMPUTER CONSULTANT Work Phone: [facility] 03-09-2014 zoster vaccine, live [place] C santipenter IMMIGRATION CONSULTANT.DATABASES COMPUTER CONSULTANT Work Phone: [facility] 12-30-2013 pneumococcal polysaccharide vaccine, 23 valent [place] Sung IMMIGRATION CONSULTANT.DATABASES COMPUTER CONSULTANT Work Phone: [facility] 03-30-2013 influenza virus vacc ine, unspecified formulation [place] Sung IMMIGRATION CONSULTANT.DATABASES COMPUTER CONSULTANT Work Phone: [facility] 12-04-2011 tetanus toxoid, redu jay diphtheria toxoid, and acellular pertussis vaccine, adsorbed Leslye Sung IMMIGRATION CONSULTANT.DATABASES COMPUTER CONSULTANT Work Phone: [facility] 04-13-2000 tetanus and diphther ia toxoids, adsorbed, preservative free, for adult use (2 Lf of tetanus toxoid and 2 Lf of diphtheria toxoid) Leslye Sung IMMIGRATION CONSULTANT.[facility] Work Phone: [facility] Work Phone: Payers Date Payer Category Payer Self-pay 2023 Medicare [id number] 2021 Medicare (Managed Care) [employer] [facility] [id number] 2021 Medicare [id number] 2015 Medicare [id number] [facility] [id number] Social History Date Type Detail Facility Start: 01-04-2013 End: 02-19-2024 Tobacco smoking status NHIS Ex-smoker [facility] Start: 04-15-1963 End: 04-15-1968 History of tobacco use Current smoker [facility] Start: 04-15-1963 End: 04-15-1968 History of tobacco use Cigarette Smoker [facility] Start: 01-04-2013 End: 06-27-2022 Cigarettes smoked current (pack per day) - Reported 0.5 [facility] Work Phone: Start: 01-04-2013 End: 02-19-2024 Tobacco use and exposure Smokeless tobacco non-user [facility] Start: 03-11-2022 End: 09-21-2024 Alcohol intake Current drinker of alcohol (finding) [facility] Start: 05-07-2020 History SDOH Alcohol Frequency 4 [facility] Start: 05-07-2020 History SDOH Alcohol Std Drinks 1 [facility] Start: 08-17-2012 History SDOH Alcohol Comment Ocassionally [facility] Start: 05-07-2020 History SDOH Social Connections Get Together 2 [facility] Start: 05-07-2020 History SDOH Physical Activity DPW 3 [facility] Start: 05-07-2020 History SDOH Financial 5 [facility] Start: 05-07-2020 Education 15 [facility] Start: 1950 Sex Assigned At Not on file [facility] Start: 08-23-2020 End: 03-05-2022 Exposure to SARS-CoV-2 (event) Not sure [facility] Start: 05-07-2020 End: 06-27-2022 Social connection and isolation panel [facility] Work Phone: Do you belong to any clubs or organizations such as adventist groups, unions, fraternal or athletic groups, or school groups? Yes [facility] Work Phone: Are you now , , , , never or living with a partner? [facility] Work Phone: How often to you hav e a drink containing alcohol? 2-3 time sa week [facility] Work Phone: How many standard dr inks containing alcohol do you have on a typical day? 1 or 2 [facility] Work Phone: How often do you hav e 6 or more drinks on 1 occasion? Never [facility] Work Phone: How hard is it for y ou to pay for the very basics like food, housing, medical care, and heating Not hard at all [facility] Work Phone: Do you feel stress - tense, restless, nervous, or anxious, or unable to sleep at night because your mind is troubled all the time - these days [OSQ] To some extent [facility] Work Phone: (I/We) worried alba er (my/our) food would run out before (I/we) got money to buy more. Never true [facility] Work Phone: Functional Status Date Assessment Result Facility 01-01-2015 Are you deaf, or do you have serious difficulty hearing Yes 01/01/2015 9:22 AM Chrystal Dozier LPN Yes [facility] 01-01-2015 Are you blind, or do you have serious difficulty seeing, even when wearing glasses No 01/01/2015 9:22 AM Chrystal Dozier LPN No [facility] 01-01-2015 Do you have serious difficulty walking or climbing stairs No 01/01/2015 9:22 AM Chrystal Dozier LPN No [facility] 01-01-2015 Do you have difficul ty dressing or bathing No 01/01/2015 9:22 AM Chrystal Dozier LPN No [facility] 01-01-2015 Because of a physica l, mental, or emotional condition, do you have difficulty doing errands alone such as visiting a physician's office or shopping No 01/01/2015 9:22 AM Chrystal Dozier LPN No [facility] Mental Status Date Assessment Result Facility 01-01-2015 Because of a physica l, mental, or emotional condition, do you have serious difficulty concentrating, remembering, or making decisions No 01/01/2015 9:22 AM EDT Chrystal Sandoval LPN No [facility] Clinical Notes 07-22-2013 to 11-22-2024 Mayra Salgado MA - 11/22/2024 6:58 AM EDTPatiHeena Sanabria PA-C - 09/21/2024 1:23 PM EDTPlaso Population Health NavigatorClare - 08/05/2024 9:50 AM EST Note Date & Type Note Facility 11-22-2024 Note HNO ID: [id number] Author: MAYRA SALGADO MA Service: ? Author Type: Primary Care Physician Type: Progress Notes Filed: 11/22/2024 08:52 Note Text: POPULATION HEALTH NAVIGATION OUTREACH Action/FYI Patient is on [employer] Work[employer] list for below and needs appointment to address: Anxiety Screening Hepatitis C Screening Pneumococcal Vaccine: 50+(2 of 2 - PCV) DTaP,Tdap,Td Vaccine(2 - Td or Tdap) RSV Vaccine(1 - 1-dose 75+ series) Covid-19 Vaccine() Advance Directive Discussion No results found for: HBA1C Patient due for: Medicare Annual Wellness Visit [employer] Active: Yes Left message for patient to call back. Sent [employer] message. HCC: Yes Reason for Outreach Care Gap/HCC or Scheduling Wellness Visits Care Gaps due: Medicare Annual Wellness Visit Patient Contacted: Unable or unnecessary to reach patient: Left message [employer] message sent HCC related Navigation Signature: Mayra Salgado MA November 22, 2024 6:[address] [facility] 11-22-2024 History of Present illness Narrative POPULATION HEALTH NAVIGATION OUTREACH Action/FYI Patient is on [employer] Work[employer] list for below and needs appointment to address: Anxiety Screening Hepatitis C Screening Pneumococcal Vaccine: 50+(2 of 2 - PCV) DTaP,Tdap,Td Vaccine(2 - Td or Tdap) RSV Vaccine(1 - 1-dose 75+ series) Covid-19 Vaccine() Advance Directive Discussion No results found for: HBA1C Patient due for: Medicare Annual Wellness Visit [employer] Active: Yes Left message for patient to call back. Sent [employer] message. HCC: Yes Reason for Outreach Care Gap/HCC or Scheduling Wellness Visits Care Gaps due: Medicare Annual Wellness Visit Patient Contacted: Unable or unnecessary to reach patient: Left message MyChart message sent HCC related Navigation Signature: Mayra Salgado MA November 22, 2024 6:58 AM documented in this encounter [facility] 11-22-2024 Note Patient Outreach (RBEANNA TNAV) JENNIFER BARBOZA ([id number]) 1950 F Date Time Provider Department 11/22/24 MAYRA SALGADO NETBRADLEYV During your visit today, we recorded the following information about you: Mayra Salgado MA 11/22/2024 8:52 AM Signed POPULATION HEALTH NAVIGATION OUTREACH Action/ Patient is on [employer] Work[employer] list for below and needs appointment to address: Anxiety Screening Hepatitis C Screening Pneumococcal Vaccine: 50+(2 of 2 - PCV) DTaP,Tdap,Td Vaccine(2 - Td or Tdap) RSV Vaccine(1 - 1-dose 75+ series) Covid-19 Vaccine( - ) Advance Directive Discussion No results found for: HBA1C Patient due for: Medicare Annual Wellness Visit [employer] Active: Yes Left message for patient to call back. Sent [employer] message. HCC: Yes Reason for Outreach Care Gap/HCC or Scheduling Wellness Visits Care Gaps due: Medicare Annual Wellness Visit Patient Contacted: Unable or unnecessary to reach patient: Left message MyChart message sent HCC related Navigation Signature: Mayra Salgado MA November 22, 2024 6:58 AM Allergies As of Date: 11/22/2024 Noted Allergy Reaction CODEINE 06/30/2005 5 - Intolerance Comments: hallucinations LIPITOR (ATORVASTATIN) 08/25/2012 14 - Other: See Comments Comments: Muscle cramps and joint pains MUCINEX (GUAIFENESIN) 12/04/2011 4 - Hives AMOXACILLIN (AMOXICILLIN) 10/16/2009 2 - Rash Date Reviewed: 09/21/2024 Reviewed by: Heena López PA-C - Fully Assessed Reason for Visit: Population Health Navigation Outreach [3910] [facility] [place] [facility] Prescriptions as of 11/22/2024 - memantine (NAMENDA) 10 mg tablet Take 1 tablet by mouth two times a day. (start after completing 5mg tab titration) - sertraline (ZOLOFT) 25 mg tablet Take 25 mg by mouth once daily. - terbinafine HCl (LAMISIL) 250 mg tablet Take 1 tablet by mouth once daily. - rosuvastatin (CRESTOR) 20 mg tablet take 1 tablet daily - Lactobac no.41/Bifidobact no.7 (PROBIOTIC-10 ORAL) Take by mouth. - omeprazole (PRILOSEC) 20 mg capsule Take 20 mg by mouth once daily. Problem List As Of Date 11/22/2024 Noted Resolved Depression [F32.A] ACUTE GASTRITIS W/O HEMORRHAGE [K29.00] 01/07/2007 CONSTIPATION NOS [K59.00] GENERAL OSTEOARTHROSIS [M15.9] 08/05/2005 GASTRITIS/DUODEN NOS W/O HEMORRH [K29.70, K29.9*01/07/2007 Actinic Keratosis (Premalignant AK) [L57.0] 08/08/2009 06/17/2010 Seborrheic Keratosis [L82.1] 08/08/2009 06/17/2010 Melanocytic Nevus: Intradermal of Trunk: back [*08/08/2009 06/17/2010 Solar lentigo [L81.4] 08/08/2009 06/17/2010 Actinic Damage///Sun-Damaged Skin [L57.8] 08/08/2009 06/17/2010 Surgical Scar Fibrosis of Skin: L cheek by nos*08/08/2009 06/17/2010 History of BCC Skin Cancer: L cheek face: 12/01*08/08/2009 06/17/2010 Hyperlipidemia, mixed [E78.2] 06/17/2010 Groin pain [R10.30] 06/17/2011 06/23/2017 Irritated//Inflamed Seborrheic Keratosis [L82.0]11/10/2011 06/23/2017 Actinic skin damage [L57.8] 11/10/2011 06/23/2017 Other Seborrheic Keratoses [L82.1] 11/10/2011 06/23/2017 Solar Lentigines [L81.4] 11/10/2011 06/23/2017 Melanocytic nevus of trunk: Intradermal Nevus o*11/10/2011 06/23/2017 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] 11/10/2011 06/23/2017 Small vessel disease [I73.9] 05/31/2012 PMB (postmenopausal bleeding) [N95.0] 08/17/2012 04/16/2016 Adenocarcinoma of endometrium, stage 1 [C54.1] 09/02/2012 Malignant neoplasm of corpus uteri, except isth*09/14/2012 HTN (hypertension) [I10] Drug induced neutropenia [D70.2] 01/26/2013 Anemia [D64.9] 02/16/2013 Viral warts, unspecified [B07.9] 07/22/2013 06/23/2017 Xerosis cutis [L85.3] 07/22/2013 06/23/2017 Abnormal weight loss [R63.4] 07/03/2017 Chronic RLQ pain [R10.31, G89.29] 07/03/2017 Functional dyspepsia [K30] 07/03/2017 Altered bowel habits [R19.4] 07/03/2017 Protein-calorie malnutrition, unspecified sever*10/06/2022 Major depressive disorder, single episode, mild*10/06/2022 Encounter Status:Closed by MAYRA SALGADO on 11/22/[address] [facility] 11-03-2024 Note HNO ID: [id number] Author: GUY ISIDRO, RN Service: ? Author Type: Registered Nurse Type: Progress Notes Filed: 11/03/2024 17:38 Note Text: Value Based Care Coordination Chart Review Provider Action / FYI: N/A Upon review of patient chart, the patient is excluded from Chronic Disease Management Patient is not a candidate for CDM at this time and placed in the following status: Deferred Action taken: No action needed . Guy Isidro RN November 03, 2024 5:[address] [facility] 11-03-2024 Note Patient Outreach (AM [facility]) JENNIFER BARBOZA ([id number]) 1950 F Date Time Provider Department 11/03/24 GUY ISIDROG During your visit today, we recorded the following information about you: Guy Isidro RN 11/03/2024 5:38 PM Signed Value Based Care Coordination Chart Review Provider Action / FYI: N/A Upon review of patient chart, the patient is excluded from Chronic Disease Management Patient is not a candidate for CDM at this time and placed in the following status: Deferred Action taken: No action needed . Guy Isidro RN November 03, 2024 5:38 PM Allergies As of Date: 11/03/2024 Noted Allergy Reaction CODEINE 06/30/2005 5 - Intolerance Comments: hallucinations LIPITOR (ATORVASTATIN) 08/25/2012 14 - Other: See Comments Comments: Muscle cramps and joint pains MUCINEX (GUAIFENESIN) 12/04/2011 4 - Hives AMOXACILLIN (AMOXICILLIN) 10/16/2009 2 - Rash Date Reviewed: 09/21/2024 Reviewed by: Heena López PA-C - Fully Assessed Reason for Visit: Case Review [0763] Prescriptions as of 11/03/2024 - memantine (NAMENDA) 10 mg tablet Take 1 tablet by mouth two times a day. (start after completing 5mg tab titration) - sertraline (ZOLOFT) 25 mg tablet Take 25 mg by mouth once daily. - terbinafine HCl (LAMISIL) 250 mg tablet Take 1 tablet by mouth once daily. - rosuvastatin (CRESTOR) 20 mg tablet take 1 tablet daily - Lactobac no.41/Bifidobact no.7 (PROBIOTIC-10 ORAL) Take by mouth. - omeprazole (PRILOSEC) 20 mg capsule Take 20 mg by mouth once daily. Problem List As Of Date 11/03/2024 Noted Resolved Depression [F32.A] ACUTE GASTRITIS W/O HEMORRHAGE [K29.00] 01/07/2007 CONSTIPATION NOS [K59.00] GENERAL OSTEOARTHROSIS [M15.9] 08/05/2005 GASTRITIS/DUODEN NOS W/O HEMORRH [K29.70, K29.9*01/07/2007 Actinic Keratosis (Premalignant AK) [L57.0] 08/08/2009 06/17/2010 Seborrheic Keratosis [L82.1] 08/08/2009 06/17/2010 Melanocytic Nevus: Intradermal of Trunk: back [*08/08/2009 06/17/2010 Solar lentigo [L81.4] 08/08/2009 06/17/2010 Actinic Damage///Sun-Damaged Skin [L57.8] 08/08/2009 06/17/2010 Surgical Scar Fibrosis of Skin: L cheek by nos*08/08/2009 06/17/2010 History of BCC Skin Cancer: L cheek face: 12/01*08/08/2009 06/17/2010 Hyperlipidemia, mixed [E78.2] 06/17/2010 Groin pain [R10.30] 06/17/2011 06/23/2017 Irritated//Inflamed Seborrheic Keratosis [L82.0]11/10/2011 06/23/2017 Actinic skin damage [L57.8] 11/10/2011 06/23/2017 Other Seborrheic Keratoses [L82.1] 11/10/2011 06/23/2017 Solar Lentigines [L81.4] 11/10/2011 06/23/2017 Melanocytic nevus of trunk: Intradermal Nevus o*11/10/2011 06/23/2017 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] 11/10/2011 06/23/2017 Small vessel disease [I73.9] 05/31/2012 PMB (postmenopausal bleeding) [N95.0] 08/17/2012 04/16/2016 Adenocarcinoma of endometrium, stage 1 [C54.1] 09/02/2012 Malignant neoplasm of corpus uteri, except isth*09/14/2012 HTN (hypertension) [I10] Drug induced neutropenia [D70.2] 01/26/2013 Anemia [D64.9] 02/16/2013 Viral warts, unspecified [B07.9] 07/22/2013 06/23/2017 Xerosis cutis [L85.3] 07/22/2013 06/23/2017 Abnormal weight loss [R63.4] 07/03/2017 Chronic RLQ pain [R10.31, G89.29] 07/03/2017 Functional dyspepsia [K30] 07/03/2017 Altered bowel habits [R19.4] 07/03/2017 Protein-calorie malnutrition, unspecified sever*10/06/2022 Major depressive disorder, single episode, mild*10/06/2022 Encounter Status:Closed by GUY ISIDRO on 11/03/[address] [facility] 09-21-2024 Instructions Heena López PA-C - 09/21/2024 2:01 PM EDT Continue with namenda 10mg twice daily Stay physically active and cognitively active Have hearing aids checked For mood management- defer to primary care but can also send to geriatric psychiatry (may consider cymbalta or other antidepressant) Follow up in 6 months documented in this encounter [facility] 09-21-2024 Note HNO ID: [id number] Author: HEENA LÓPEZ PA-C Service: ? Author Type: Physician Socket Welder Helper Type: Progress Notes Filed: 09/21/2024 14:32 Note Text: [facility] Name: Jennifer Barboza Age: [age] year old Gender: female Primary Care Provider: Hubert Forrest MD 09/21/2024 - General Neurology, Heena López PA-C ASSESSMENT ASSESSMENT/PLAN: 1. Moderate dementia with anxiety, unspecified dementia type (HCC) - ICD9: 294.21, ICD10: F03.B4 Patient and family present for follow-up, feel the patient is doing well, stable. Still living alone, weight and appetite are stable. Doing well on Namenda 10 mg twice daily without any side effects. MoCA slightly decreased from previous but patient and daughter reporting worsening hearing. Has not had her hearing aids checked since last year, recommended having this evaluation done. Does report some worsening anxiety, did increase Zoloft to primary care about reports it did not help with the mood and just made her more sedated. Discussed medications that may be helpful, deferring to primary care judgment. Discussed possible referral to geriatric psych in the future should it be needed. No falls, no aggression, personality changes, wandering, hallucinations. Sleep has been stable, appetite has been stable. No other new concerns today. Will continue with Namenda 10 mg twice daily and encouraged increasing physical and cognitive activity. Patient currently lives alone but has daily visitors, no longer driving, we will continue to monitor. Patient agreeable to treatment plan of care at this time, all questions were answered. Patient to follow-up in 6 months. Alzheimer's Society: Join to learn about many resources and supports for you, as the caregiver Community Resources: E.g. [employer] - A Dementia Friend[employer] Foundation on the [place] side [facility]. CERTIFIED PROSTHETIST/OT/PT: Speech therapy, Occupational therapy, Physical Therapy Driving: Do you have safety concerns? Power of [employer]/ planning of the patient's will Project Lifesaver: Local police will keep records of your loved one if they tend to get lost, and will bring them home. Lifeline: emergency response button/necklace/bracelet Caregiver Health: Important to ensure you are taking care of your mental and physical health so you can care for your loved one SW consult: Do you want a social work referral to understand what resources are available to you? This is a 74 year old female followed for memory loss Current medication treatment: Namenda 10 mg twice daily Indication for repeat cognitive testing: No No diagnosis found. Return in about 6 months (around 03/23/2025). Chart, labs,and relevant images reviewed. Chief Complaint:Patient presents with: Established Patient: C/o not being to cure issues, daughter feels it helps a little, no decline since medication Chart Review: 04/20/24 Last Filed Values Date of Most Recent Assessment and Plan 04/20/24 Specialty General Neurology Assessment ASSESSMENT/PLAN: 1. Cognitive changes - ICD9: 799.59, ICD10: R41.89 (primary diagnosis) 2. Moderate dementia with anxiety, unspecified dementia type (HCC) - ICD9: 294.21, ICD10: F03.B4 Patient with likely mild to moderate dementia based off of MRI imaging, MoCA testing. Was started on Namenda at last appointments with titration up to 10 mg twice daily and that she is doing well with this. Daughter noting some subjective improvement in word recall and patient reporting that its helpful for her anxiety. Would like to continue this medication. Deferring any further workup at this time including neuropsychological testing. Patient does live alone in a condo, but daughter visits twice a day and she does have neighbors close by. Is fairly physically active and cognitively active, does have some difficulty maintaining weight but actually gained a few pounds since last appointment. However, due to weight being an issue will avoid Aricept. At this time, encouraged conservative therapy including physical and cognitive activity and will continue Namenda 10 mg twice daily. No new symptoms that would warrantadditional workup. Discussed with daughter if resources are ever needed or if she ever needs help to reach out to him would be happy to discuss resources available in the area. Patient otherwise doing well, patient does not drive. Patient and daughter agreeable to treatment plan of care at this time, questions were answered. Patient to follow-up in 4 to 5 months. Heena López PA-C HPI: Last seen for memory concerns on 04/20/24. Doing well on namenda 10mg bid, deferring any further work up, visits by daughter twice daily. Weight stable. [place] was . Patient presents with her daughter for follow-up appointment. Notes that she has been doing well, feels that she is stable from previous. Notes that she is not as physically active as she used to be but does walk often, (more content not included)... [facility] 09-21-2024 History of Present illness Narrative Images from the original note were not included. [facility] Name: Jennifer Barboza Age: [age] year old Gender: female Primary Care Provider: Hubert Forrest MD 09/21/2024 - General Neurology, Heena López PA-C ASSESSMENT ASSESSMENT/PLAN: 1. Moderate dementia with anxiety, unspecified dementia type (HCC) - ICD9: 294.21, ICD10: F03.B4 Patient and family present for follow-up, feel the patient is doing well, stable. Still living alone, weight and appetite are stable. Doing well on Namenda 10 mg twice daily without any side effects. MoCA slightly decreased from previous but patient and daughter reporting worsening hearing. Has not had her hearing aids checked since last year, recommended having this evaluation done. Does report some worsening anxiety, did increase Zoloft to primary care about reports it did not help with the mood and just made her more sedated. Discussed medications that may be helpful, deferring to primary care judgment. Discussed possible referral to geriatric psych in the future should it be needed. No falls, no aggression, personality changes, wandering, hallucinations. Sleep has been stable, appetite has been stable. No other new concerns today. Will continue with Namenda 10 mg twice daily and encouraged increasing physical and cognitive activity. Patient currently lives alone but has daily visitors, no longer driving, we will continue to monitor. Patient agreeable to treatment plan of care at this time, all questions were answered. Patient to follow-up in 6 months. Alzheimer's Society: Join to learn about many resources and supports for you, as the caregiver Community Resources: E.g. [employer] - A Dementia Friend[employer] Foundation on the [place] side [facility]. CERTIFIED PROSTHETIST/OT/PT: Speech therapy, Occupational therapy, Physical Therapy Driving: Do you have safety concerns? Power of [employer]/ planning of the patient's will Project Lifesaver: Local police will keep records of your loved one if they tend to get lost, and will bring them home. Lifeline: emergency response button/necklace/bracelet Caregiver Health: Important to ensure you are taking care of your mental and physical health so you can care for your loved one SW consult: Do you want a social work referral to understand what resources are available to you? This is a 74 year old female followed for memory loss Current medication treatment: Namenda 10 mg twice daily Indication for repeat cognitive testing: No No diagnosis found. Return in about 6 months (around 03/23/2025). Chart, labs,and relevant images reviewed. Chief Complaint:Patient presents with: Established Patient: C/o not being to cure issues, daughter feels it helps a little, no decline since medication Chart Review: 04/20/24 Last Filed Values Date of Most Recent Assessment and Plan 04/20/24 Specialty General Neurology Assessment ASSESSMENT/PLAN: 1. Cognitive changes - ICD9: 799.59, ICD10: R41.89 (primary diagnosis) 2. Moderate dementia with anxiety, unspecified dementia type (HCC) - ICD9: 294.21, ICD10: F03.B4 Patient with likely mild to moderate dementia based off of MRI imaging, MoCA testing. Was started on Namenda at last appointments with titration up to 10 mg twice daily and that she is doing well with this. Daughter noting some subjective improvement in word recall and patient reporting that its helpful for her anxiety. Would like to continue this medication. Deferring any further workup at this time including neuropsychological testing. Patient does live alone in a condo, but daughter visits twice a day and she does have neighbors close by. Is fairly physically active and cognitively active, does have some difficulty maintaining weight but actually gained a few pounds since last appointment. However, due to weight being an issue will avoid Aricept. At this time, encouraged conservative therapy including physical and cognitive activity and will continue Namenda 10 mg twice daily. No new symptoms that would warrant additional workup. Discussed with daughter if resources are ever needed or if she ever needs help to reach out to him would be happy to discuss resources available in the area. Patient otherwise doing well, patient does not drive. Patient and daughter agreeable to treatment plan of care at this time, questions were answered. Patient to follow-up in 4 to 5 months. Heena López PA-C HPI: Last seen for memory concerns on 04/20/24. Doing well on namenda 10mg bid, deferring any further work up, visits by daughter twice daily. Weight stable. [place] was . Patient presents with her daughter for follow-up appointment. Notes that she has been doing well, feels that she is stable from previous. Notes that she is not as physically active as she used to be but does walk often, patient notes that she has some chronic foot pain that limits her ability to walk long distances. Is very cognitively active, do started reading again. Still lives alone but has daily visitors and talks to her daughter often. Daughter and patient notes new concern of having some issues with mood and anxiety. Increased her Zoloft but this only caused her to act sedated. States that she seems to feel unsettled more days than not at least 1 point during the day. Patient is unsure of any triggers for this but states she notices it as well. Daughter notes that it is more in the morning and tends to improve throughout the day. No falls, no other new diagnoses since last appointment. No longer using the stove, uses the microwave. Daughter handles all of bills. Daughter does note that she is getting more flustered and getting dressed in the morning and sometimes has the struggling where to put her arms and legs in her clothing. No issues with using toothbrushes, hair brushes, etc. Still able to button buttons. Sleep concerns? No, some nights not great, at least 6 hours a night average 8-9 hours. Eating/nutrition concerns? No, weight is stable. Med side effects concerns? no Hallucinations? no Social work consult interest? no Wandering/getting lost concern? no Caregiver burnout concern? 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, Except Isthmus (Hcc) Htn (Hypertension) Drug Induced Neutropenia(288.03) Anemia Abnormal Weight Loss Chronic Rlq Pain Functional Dyspepsia Altered Bowel Habits Protein-Calorie Malnutrition, Unspecified Severity (Hcc) Major Depressive Disorder, Single Episode, Mild PAST MEDICAL HISTORY Diagnosis Date Acute gastritis without mention of hemorrhage chronic CAD (coronary artery disease) Heart cath (06/2010) showed small vessel disease Depressive disorder, not elsewhere classified chronic depression Diverticulosis of colon (without mention of hemorrhage) 07/31/05 Endometrial cancer (HCC) partial cervix remains Generalized osteoarthrosis, unspecified site hands HTN (hypertension) Internal hemorrhoids without mention of complication 07/31/05 PMH - PAST MEDICAL HISTORY OF climacteric Snoring Unspecified constipation Medications: Reviewed memantine (NAMENDA) 10 mg tablet Take 1 tablet by mouth two times a day. (start after completing 5mg tab titration) sertraline (ZOLOFT) 25 mg tablet Take 25 mg by mouth once daily. (Patient taking differently: Take 62.5 mg by mouth once daily.) terbinafine HCl (LAMISIL) 250 mg tablet Take 1 tablet by mouth once daily. rosuvastatin (CRESTOR) 20 mg tablet take 1 tablet daily Lactobac no.41/Bifidobact no.7 (PROBIOTIC-10 ORAL) Take by mouth. omeprazole (PRILOSEC) 20 mg capsule Take 20 mg by mouth once daily. (Patient not taking: Reported on 04/01/2023) ALLERGIES Allergen Reactions Codeine Intolerance hallucinations Lipitor [Atorvastat* Other: See Comments Muscle cramps and joint pains Mucinex [Guaifenesi* Hives Amoxacillin [Amoxic* Rash FAMILY HISTORY Problem Relation Age of Onset Alzheimer's Disease Mother Hypertension Mother Stroke Father Hypertension Father Diabetes Brother Arthritis Hypertension Brother other (carotid surgery) Brother Breast Cancer Maternal Aunt Arthritis Brother other (Multiple Myeloma) Brother Breast Cancer Paternal Aunt Diabetes Paternal Uncle x 4 Diabetes Paternal Aunt x1 PAST SURGICAL HISTORY Procedure Laterality Date COLONOSCOPY FLX DX W/COLLJ SPEC WHEN PFRMD 07/31/05 Per repeat in COLONOSCOPY FLX DX W/COLLJ SPEC WHEN PFRMD 07/03/14 Colonoscopy ESOPHAGOGASTRODUODENOSCOPY TRANSORAL DIAGNOSTIC 08/11/2017 EGD LAPS TOTAL HYSTERECT 250 GM/< W/RMVL TUBE/OVARY 09/2012 part cervix remains/Laparoscopic hysterectomy, bilateral salpingo-oophorectomy, bilateral pelvic and right para-aortic lymphadenectomy, and cystoscopy. LIG/TRNSXJ FLP TUBE ABDL/VAG APPR UNI/BI Tubal ligation PAST SURGICAL HISTORY OF 11/2016 skin lesions that were benign TONSILLECTOMY PRIMARY/SECONDARY <AGE 10 Tonsillectomy Social Hx: Lives alone @Alcohol Use: Not At Risk (05/07/2020) AUDIT-C Frequency of Alcohol Consumption: 2-3 times a week Average Number of Drinks: 1 or 2 Frequency of Binge Drinking: Never Tobacco Use: Medium Risk (04/20/2024) Patient History Smoking Tobacco Use: Former Smokeless Tobacco Use: Never Passive Exposure: Not on file 09/21/24 1329 BP: 102/74 Pulse: 86 Modified MoCA:05/04 Clock draw: 0/3 Namin/3 Attention: 2/5 Language: 0/1 Abstraction: 2/2 Orientation: 4/6 Difficulty hearing throughout testing, needed repetition multiple times Neurologic Exam Cognitive and Language: Alert and answered questions appropriately. Language was fluent. Cranial Nerves: Extraocular movements were full with no diplopia or nystagmus. Facial strength was symmetric. Motor: Moves all 4 extremities Sensory: No evidence of neglect Coordination: Normal finger to nose and heel to joy testing bilaterally. Normal gait. Labs: Lab Results Component Value Date WBC 7.30 10/07/2022 HCT 35.6 (L) 10/07/2022 MCV 98.3 10/07/2022 PLT 297 10/07/2022 No results found for: HBA1C Cholesterol, Total Date Value Ref Range Status 06/17/2021 212 (H) <200 mg/dL Final Comment: <200 mg/dL, Desirable 200-239 mg/dL, Borderline high >239 mg/dL, High HDL Cholesterol Date Value Ref Range Status 06/17/2021 53 >39 mg/dL Final Comment: 40-59 mg/dL, Acceptable >59 mg/dL, High: Negative risk factor for coronary heart disease <40 mg/dL, Low: Positive risk factor for coronary heart disease LDL Cholesterol Date Value Ref Range Status 06/17/2021 124 (H) <100 mg/dL Final Comment: <100 mg/dL, Optimal 100-129 mg/dL, Near optimal/above optimal 130-159 mg/dL, Borderline high 160-189 mg/dL, High >189 mg/dL, Very high Secondary prevention optimal LDL Cholesterol levels are recommended to be < 70 mg/dL Triglyceride Date Value Ref Range Status 06/17/2021 173 (H) <150 mg/dL Final Comment: <150 mg/dL, Normal 150-199 mg/dL, Borderline high 200-499 mg/dL, High >499 mg/dL, Very high Lab Results Component Value Date TSH 2.830 10/07/2022 TSH 2.640 06/17/2021 Lab Results Component Value Date B12 436 10/07/2022 Results for orders placed or performed in visit on 04/09/23 LVEF TRANSTHORACIC ECHO Result Value Ref Range LV Ejection Fraction 59 % Radiology: MRI Head/Brain - Last 2 Impressions MRI BRAIN WO IVCON Exam End: 10/31/2022 12:26 PM (Final result) Impression: IMPRESSION: Microvascular ischemic change and volume loss. No acute abnormality. ... MRI BRAIN WWO CONTRAST Collected: 05/20/2010 8:41 AM (Final result) This note was dictated using [employer] speech recognition software and may contain some errors that were a result of the program not accurately transcribing what was dictated, despite efforts to make corrections. Note that unless urgent, test and MRI results will be discussed at next follow-up visit. PROMIS (Patient-Reported Outcomes Measurement Information System) is a set of person-centered measures that evaluates and monitors physical, social, and emotional health. It can be used with the general population and with individuals living with chronic conditions. PROMIS 10: PHYSICAL AND MENTAL HEALTH: 09/22/2020 PHQ-9 PHQ-2 Score 0 PHQ-9 Score 0 Medical Decision Making: Medical Decision Making Level: 1 - N/A I spent a total of 45 minutes on the date of the service which included preparing to see the patient, [id number] patient care, completing clinical documentation, obtaining and/or reviewing separately obtained history, performing a medically appropriate examination, counseling and educating the patient/family/caregiver, and ordering medications, tests, or procedures. The patient consented to the use of [employer] software for draft documentation of the visit consistent with [facility] s Notice of Privacy Practices. documented in this encounter [facility] 08-05-2024 Note HNO ID: [id number] Author: ?, ?, ? Service: ? Author Type: ? Type: Progress Notes Filed: 08/05/2024 09:51 Note Text: POPULATION HEALTH NAVIGATION OUTREACH Action/FYI I spoke with patient's daughter(POA) and offered medicare wellness and follow up, she declined at this time. Reason for Outreach Care Gap/HCC or Scheduling Wellness Visits Care Gaps due: Medicare Annual Wellness Visit Follow-up Appointment Patient Contacted: Spoke to patient/parent/or legal guardian Patient identified by name and : Yes Care Gap/HCC/Scheduling Wellness actions taken: Patient declined: Doesn't feel it's necessary Navigation Signature: Clare Godoy Population Health Navigator August 05, 2024 9:[address] [facility] 08-05-2024 History of Present illness Narrative POPULATION HEALTH NAVIGATION OUTREACH Action/FYI I spoke with patient's daughter(FRANCES) and offered medicare wellness and follow up, she declined at this time. Reason for Outreach Care Gap/HCC or Scheduling Wellness Visits Care Gaps due: Medicare Annual Wellness Visit Follow-up Appointment Patient Contacted: Spoke to patient/parent/or legal guardian Patient identified by name and : Yes Care Gap/HCC/Scheduling Wellness actions taken: Patient declined: Doesn't feel it's necessary Navigation Signature: Clare Godoy [employer] August 05, 2024 9:50 AM documented in this encounter [facility] 08-05-2024 Note Patient Outreach (NE TNAV) JENNIFER BARBOZA ([id number]) 1950 F Date Time Provider Department 08/05/24 CLARE GODOY NETNAV During your visit today, we recorded the following information about you: Walt [employer] Clare Sahu 08/05/2024 9:51 AM Signed POPULATION HEALTH NAVIGATION OUTREACH Action/FYI I spoke with patient's daughter(FRANCES) and offered medicare wellness and follow up, she declined at this time. Reason for Outreach Care Gap/HCC or Scheduling Wellness Visits Care Gaps due: Medicare Annual Wellness Visit Follow-up Appointment Patient Contacted: Spoke to patient/parent/or legal guardian Patient identified by name and : Yes Care Gap/HCC/Scheduling Wellness actions taken: Patient declined: Doesn't feel it's necessary Navigation Signature: Clare Godoy [employer] August 05, 2024 9:50 AM Allergies As of Date: 08/05/2024 Noted Allergy Reaction CODEINE 06/30/2005 5 - Intolerance Comments: hallucinations LIPITOR (ATORVASTATIN) 08/25/2012 14 - Other: See Comments Comments: Muscle cramps and joint pains MUCINEX (GUAIFENESIN) 12/04/2011 4 - Hives AMOXACILLIN (AMOXICILLIN) 10/16/2009 2 - Rash Date Reviewed: 04/20/2024 Reviewed by: Heena López PA-C - Fully Assessed Reason for Visit: Population Health Navigation Outreach [3910] Cmt: [employer] High Risk Attempt 1 Prescriptions as of 08/05/2024 - memantine (NAMENDA) 10 mg tablet Take 1 tablet by mouth two times a day. (start after completing 5mg tab titration) - sertraline (ZOLOFT) 25 mg tablet Take 25 mg by mouth once daily. - terbinafine HCl (LAMISIL) 250 mg tablet Take 1 tablet by mouth once daily. - rosuvastatin (CRESTOR) 20 mg tablet take 1 tablet daily - Lactobac no.41/Bifidobact no.7 (PROBIOTIC-10 ORAL) Take by mouth. - omeprazole (PRILOSEC) 20 mg capsule Take 20 mg by mouth once daily. Problem List As Of Date 08/05/2024 Noted Resolved Depression [F32.A] ACUTE GASTRITIS W/O HEMORRHAGE [K29.00] 01/07/2007 CONSTIPATION NOS [K59.00] GENERAL OSTEOARTHROSIS [M15.9] 08/05/2005 GASTRITIS/DUODEN NOS W/O HEMORRH [K29.70, K29.9*01/07/2007 Actinic Keratosis (Premalignant AK) [L57.0] 08/08/2009 06/17/2010 Seborrheic Keratosis [L82.1] 08/08/2009 06/17/2010 Melanocytic Nevus: Intradermal of Trunk: back [*08/08/2009 06/17/2010 Solar lentigo [L81.4] 08/08/2009 06/17/2010 Actinic Damage///Sun-Damaged Skin [L57.8] 08/08/2009 06/17/2010 Surgical Scar Fibrosis of Skin: L cheek by nos*08/08/2009 06/17/2010 History of BCC Skin Cancer: L cheek face: 12/01*08/08/2009 06/17/2010 Hyperlipidemia, mixed [E78.2] 06/17/2010 Groin pain [R10.30] 06/17/2011 06/23/2017 Irritated//Inflamed Seborrheic Keratosis [L82.0]11/10/2011 06/23/2017 Actinic skin damage [L57.8] 11/10/2011 06/23/2017 Other Seborrheic Keratoses [L82.1] 11/10/2011 06/23/2017 Solar Lentigines [L81.4] 11/10/2011 06/23/2017 Melanocytic nevus of trunk: Intradermal Nevus o*11/10/2011 06/23/2017 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] 11/10/2011 06/23/2017 Small vessel disease [I73.9] 05/31/2012 PMB (postmenopausal bleeding) [N95.0] 08/17/2012 04/16/2016 Adenocarcinoma of endometrium, stage 1 [C54.1] 09/02/2012 Malignant neoplasm of corpus uteri, except isth*09/14/2012 HTN (hypertension) [I10] Drug induced neutropenia [D70.2] 01/26/2013 Anemia [D64.9] 02/16/2013 Viral warts, unspecified [B07.9] 07/22/2013 06/23/2017 Xerosis cutis [L85.3] 07/22/2013 06/23/2017 Abnormal weight loss [R63.4] 07/03/2017 Chronic RLQ pain [R10.31, G89.29] 07/03/2017 Functional dyspepsia [K30] 07/03/2017 Altered bowel habits [R19.4] 07/03/2017 Protein-calorie malnutrition, unspecified sever*10/06/2022 Major depressive disorder, single episode, mild*10/06/2022 Encounter Status:Closed by [facility] on 08/05/[address] [facility] 07-08-2024 Note HNO ID: [id number] Author: MAYRA SALGADO MA Service: ? Author Type: Primary Care Physician Type: Progress Notes Filed: 07/08/2024 12:54 Note Text: POPULATION HEALTH NAVIGATION OUTREACH Action/FYI Patient is on [employer] Workbench list for below and needs appointment to address: Anxiety Screening Hepatitis C Screening BP Controlled (<130/80) Pneumococcal Vaccine: 50+(2 of 2 - PCV) DTaP,Tdap,Td Vaccine(2 - Td or Tdap) RSV Vaccine(1 - 1-dose 75+ series) Influenza Vaccine(1) Covid-19 Vaccine( season) Advance Directive Discussion No results found for: HBA1C Patient due for: Medicare Annual Wellness Visit Controlling Blood Pressure Flu Vaccine MyChart Active: Yes Left message for patient to call back. Sent mychart message. HCC: Yes Reason for Outreach Care Gap/HCC or Scheduling Wellness Visits Care Gaps due: Medicare Annual Wellness Visit Controlling Blood Pressure Flu Vaccine Patient Contacted: Unable or unnecessary to reach patient: Left message Clarivoyhart message sent HCC related Navigation Signature: Mayra Salgado MA July 08, 2024 12:[address] [facility] 07-08-2024 History of Present illness Narrative POPULATION HEALTH NAVIGATION OUTREACH Action/FYI Patient is on [employer] Work[employer] list for below and needs appointment to address: Anxiety Screening Hepatitis C Screening BP Controlled (<130/80) Pneumococcal Vaccine: 50+(2 of 2 - PCV) DTaP,Tdap,Td Vaccine(2 - Td or Tdap) RSV Vaccine(1 - 1-dose 75+ series) Influenza Vaccine(1) Covid-19 Vaccine( season) Advance Directive Discussion No results found for: HBA1C Patient due for: Medicare Annual Wellness Visit Controlling Blood Pressure Flu Vaccine MyChart Active: Yes Left message for patient to call back. Sent Toolmeett message. HCC: Yes Reason for Outreach Care Gap/HCC or Scheduling Wellness Visits Care Gaps due: Medicare Annual Wellness Visit Controlling Blood Pressure Flu Vaccine Patient Contacted: Unable or unnecessary to reach patient: Left message Clarivoyhart message sent HCC related Navigation Signature: Mayra Salgado MA July 08, 2024 12:49 PM documented in this encounter [facility] 07-08-2024 Note Patient Outreach (NE TNAV) JENNIFER BARBOZA ([id number]) 1950 F Date Time Provider Department 07/08/24 MAYRA SALGADO During your visit today, we recorded the following information about you: Mayra Salgado MA 07/08/2024 12:54 PM Signed POPULATION HEALTH NAVIGATION OUTREACH Action/FYI [facility] below and needs appointment to address: Anxiety Screening Hepatitis C Screening BP Controlled (<130/80) Pneumococcal Vaccine: 50+(2 of 2 - PCV) DTaP,Tdap,Td Vaccine(2 - Td or Tdap) RSV Vaccine(1 - 1-dose 75+ series) Influenza Vaccine(1) Covid-19 Vaccine() Advance Directive Discussion No results found for: HBA1C Patient due for: Medicare Annual Wellness Visit Controlling Blood Pressure Flu Vaccine [employer] Active: Yes Left message for patient to call back. Sent Fluencr message. HCC: Yes Reason for Outreach Care Gap/HCC or Scheduling Wellness Visits Care Gaps due: Medicare Annual Wellness Visit Controlling Blood Pressure Flu Vaccine Patient Contacted: Unable or unnecessary to reach patient: Left message [employer] message sent [facility] related Navigation Signature: Mayra Salgado MA July 08, 2024 12:49 PM Allergies As of Date: 07/08/2024 Noted Allergy Reaction CODEINE 06/30/2005 5 - Intolerance Comments: hallucinations LIPITOR (ATORVASTATIN) 08/25/2012 14 - Other: See Comments Comments: Muscle cramps and joint pains MUCINEX (GUAIFENESIN) 12/04/2011 4 - Hives AMOXACILLIN (AMOXICILLIN) 10/16/2009 2 - Rash Date Reviewed: 04/20/2024 Reviewed by: Heena López PA-C - Fully Assessed Reason for Visit: Population Health Navigation Outreach [3910] Cmt: [employer]em[employer] - [place] PCSA Prescriptions as of 07/08/2024 - memantine (NAMENDA) 10 mg tablet Take 1 tablet by mouth two times a day. (start after completing 5mg tab titration) - sertraline (ZOLOFT) 25 mg tablet Take 25 mg by mouth once daily. - terbinafine HCl (LAMISIL) 250 mg tablet Take 1 tablet by mouth once daily. - rosuvastatin (CRESTOR) 20 mg tablet take 1 tablet daily - Lactobac no.41/Bifidobact no.7 (PROBIOTIC-10 ORAL) Take by mouth. - omeprazole (PRILOSEC) 20 mg capsule Take 20 mg by mouth once daily. Problem List As Of Date 07/08/2024 Noted Resolved Depression [F32.A] ACUTE GASTRITIS W/O HEMORRHAGE [K29.00] 01/07/2007 CONSTIPATION NOS [K59.00] GENERAL OSTEOARTHROSIS [M15.9] 08/05/2005 GASTRITIS/DUODEN NOS W/O HEMORRH [K29.70, K29.9*01/07/2007 Actinic Keratosis (Premalignant AK) [L57.0] 08/08/2009 06/17/2010 Seborrheic Keratosis [L82.1] 08/08/2009 06/17/2010 Melanocytic Nevus: Intradermal of Trunk: back [*08/08/2009 06/17/2010 Solar lentigo [L81.4] 08/08/2009 06/17/2010 Actinic Damage///Sun-Damaged Skin [L57.8] 08/08/2009 06/17/2010 Surgical Scar Fibrosis of Skin: L cheek by nos*08/08/2009 06/17/2010 History of BCC Skin Cancer: L cheek face: 12/01*08/08/2009 06/17/2010 Hyperlipidemia, mixed [E78.2] 06/17/2010 Groin pain [R10.30] 06/17/2011 06/23/2017 Irritated//Inflamed Seborrheic Keratosis [L82.0]11/10/2011 06/23/2017 Actinic skin damage [L57.8] 11/10/2011 06/23/2017 Other Seborrheic Keratoses [L82.1] 11/10/2011 06/23/2017 Solar Lentigines [L81.4] 11/10/2011 06/23/2017 Melanocytic nevus of trunk: Intradermal Nevus o*11/10/2011 06/23/2017 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] 11/10/2011 06/23/2017 Small vessel disease [I73.9] 05/31/2012 PMB (postmenopausal bleeding) [N95.0] 08/17/2012 04/16/2016 Adenocarcinoma of endometrium, stage 1 [C54.1] 09/02/2012 Malignant neoplasm of corpus uteri, except isth*09/14/2012 HTN (hypertension) [I10] Drug induced neutropenia [D70.2] 01/26/2013 Anemia [D64.9] 02/16/2013 Viral warts, unspecified [B07.9] 07/22/2013 06/23/2017 Xerosis cutis [L85.3] 07/22/2013 06/23/2017 Abnormal weight loss [R63.4] 07/03/2017 Chronic RLQ pain [R10.31, G89.29] 07/03/2017 Functional dyspepsia [K30] 07/03/2017 Altered bowel habits [R19.4] 07/03/2017 Protein-calorie malnutrition, unspecified sever*10/06/2022 Major depressive disorder, single episode, mild*10/06/2022 Encounter Status:Closed by MAYRA SALGADO on 07/08/[address] [facility] 04-20-2024 Instructions Heena López PA-C - 04/20/2024 12:59 PM EST Continue with namenda 10mg twice daily Continue with physical activity and brain exercises. Keep an eye on weight Follow up in 4-5 months documented in this encounter [facility] 04-20-2024 Note HNO ID: [id number] Author: HEENA LÓPEZ PA-C Service: ? Author Type: Physician Socket Welder Helper Type: Progress Notes Filed: 04/20/2024 13:21 Note Text: [facility] Name: Jennifer Barboza Age: [age] year old Gender: female Primary Care Provider: Hubert Forrest MD 04/20/2024 - General Neurology, Heena López PA-C ASSESSMENT ASSESSMENT/PLAN: 1. Cognitive changes - ICD9: 799.59, ICD10: R41.89 (primary diagnosis) 2. Moderate dementia with anxiety, unspecified dementia type (HCC) - ICD9: 294.21, ICD10: F03.B4 Patient with likely mild to moderate dementia based off of MRI imaging, MoCA testing. Was started on Namenda at last appointments with titration up to 10 mg twice daily and that she is doing well with this. Daughter noting some subjective improvement in word recall and patient reporting that its helpful for her anxiety. Would like to continue this medication. Deferring any further workup at this time including neuropsychological testing. Patient does live alone in a condo, but daughter visits twice a day and she does have neighbors close by. Is fairly physically active and cognitively active, does have some difficulty maintaining weight but actually gained a few pounds since last appointment. However, due to weight being an issue will avoid Aricept. At this time, encouraged conservative therapy including physical and cognitive activity and will continue Namenda 10 mg twice daily. No new symptoms that would warrantadditional workup. Discussed with daughter if resources are ever needed or if she ever needs help to reach out to him would be happy to discuss resources available in the area. Patient otherwise doing well, patient does not drive. Patient and daughter agreeable to treatment plan of care at this time, questions were answered. Patient to follow-up in 4 to 5 months. Heena López PA-C This is a 74 year old female followed for memory loss. Current medication treatment: Namenda 10mg bid Indication for repeat cognitive testing: No No diagnosis found. No follow-ups on file. Chart, labs,and relevant images reviewed. Chief Complaint:No chief complaint on file. Chart Review: 02/19/[address] Monreal ASSESSMENT/PLAN: 1. Moderate dementia with anxiety, unspecified dementia type (HCC) - ICD9: 294.21, ICD10: F03.B4 (primary diagnosis) 2. Cognitive changes - ICD9: 799.59, ICD10: R41.89 Patient with history and exam findings to suggest a moderate progressive dementia with associated anxiety. MRI brain completed as above, and while not a volumetric study, showing moderate atrophy for age of both cortical and central nature. Metabolic causes have been ruled out, and pt history and MRI not suggestive of NPH. No clear history to suggest pseudodementia. Pattern of cognitive change and imaging not suggestive of a vascular dementia. No changes on MRI to suggest CAA. Given family history, suspect neurodegenerative process and possible Alzheimer's type dementia. Dx d/w pt and her daughter. At this time, I do not feel benefit in further imaging, with pt not wanting any further testing and daughter agrees. However, do feel attempts to treat and slow progression of disease is appropriate. D/w pt and daughter treatment options and will initiate Namenda 5mg that will be titrated up to 10mg BID over next 4 weeks. SE and ADRs d/w pt and daughter. In addition discussed the need for additional care at home, and feel that patient should NOT drive or operate heavy machinery. Daughter states they are working on increasing patient care at this time. I have also encouraged brain exercises and attempts to increase social interaction. Patient will follow up in ~3 months or sooner prn. Jordi Monreal MD HPI: Last saw Dr. Monreal, one year of progressive cognitive decline, however, daughter notes longer. [place] , MRI showing atrophy. Concerned for dementia, alzheimers. Started [id number] bid, working on pt care. Patient presents with her daughter for follow-up appointment. At last appointment she was found to have mild to moderate dementia, concerning for Alzheimer based off previous imaging and MoCA. Deferring further testing at this time. Was placed on Namenda 10 mg twice daily and notes improvement in her anxiety since starting this. Daughter notes improvement in some of her short-term memory and word recall. Notes that she no longer takes a long time to search for certain words. No side effects with it including lightheadedness, GI upset or other. No falls since last appointment, no new concerns or symptoms today. Notes that her sleep has been stable, no wandering or worsening confusion in the evening. Patient does live alone in a condo but has many neighbors around her and notes her daughter visits her twice a day, once in the morning once in the evening before she goes to bed. No issues with cooking or cleaning, patient's daughter no (more content not included)... [facility] 04-20-2024 History of Present illness Narrative Images from the original note were not included. [facility] Name: Jennifer Barboza Age: [age] year old Gender: female Primary Care Provider: Hubert Forrest MD 04/20/2024 - General Neurology, Heena López PA-C ASSESSMENT ASSESSMENT/PLAN: 1. Cognitive changes - ICD9: 799.59, ICD10: R41.89 (primary diagnosis) 2. Moderate dementia with anxiety, unspecified dementia type (HCC) - ICD9: 294.21, ICD10: F03.B4 Patient with likely mild to moderate dementia based off of MRI imaging, MoCA testing. Was started on Namenda at last appointments with titration up to 10 mg twice daily and that she is doing well with this. Daughter noting some subjective improvement in word recall and patient reporting that its helpful for her anxiety. Would like to continue this medication. Deferring any further workup at this time including neuropsychological testing. Patient does live alone in a condo, but daughter visits twice a day and she does have neighbors close by. Is fairly physically active and cognitively active, does have some difficulty maintaining weight but actually gained a few pounds since last appointment. However, due to weight being an issue will avoid Aricept. At this time, encouraged conservative therapy including physical and cognitive activity and will continue Namenda 10 mg twice daily. No new symptoms that would warrant additional workup. Discussed with daughter if resources are ever needed or if she ever needs help to reach out to him would be happy to discuss resources available in the area. Patient otherwise doing well, patient does not drive. Patient and daughter agreeable to treatment plan of care at this time, questions were answered. Patient to follow-up in 4 to 5 months. Heena López PA-C This is a 74 year old female followed for memory loss. Current medication treatment: Namenda 10mg bid Indication for repeat cognitive testing: No No diagnosis found. No follow-ups on file. Chart, labs,and relevant images reviewed. Chief Complaint:No chief complaint on file. Chart Review: 02/19/[address] Monreal ASSESSMENT/PLAN: 1. Moderate dementia with anxiety, unspecified dementia type (HCC) - ICD9: 294.21, ICD10: F03.B4 (primary diagnosis) 2. Cognitive changes - ICD9: 799.59, ICD10: R41.89 Patient with history and exam findings to suggest a moderate progressive dementia with associated anxiety. MRI brain completed as above, and while not a volumetric study, showing moderate atrophy for age of both cortical and central nature. Metabolic causes have been ruled out, and pt history and MRI not suggestive of NPH. No clear history to suggest pseudodementia. Pattern of cognitive change and imaging not suggestive of a vascular dementia. No changes on MRI to suggest CAA. Given family history, suspect neurodegenerative process and possible Alzheimer's type dementia. Dx d/w pt and her daughter. At this time, I do not feel benefit in further imaging, with pt not wanting any further testing and daughter agrees. However, do feel attempts to treat and slow progression of disease is appropriate. D/w pt and daughter treatment options and will initiate Namenda 5mg that will be titrated up to 10mg BID over next 4 weeks. SE and ADRs d/w pt and daughter. In addition discussed the need for additional care at home, and feel that patient should NOT drive or operate heavy machinery. Daughter states they are working on increasing patient care at this time. I have also encouraged brain exercises and attempts to increase social interaction. Patient will follow up in ~3 months or sooner prn. Jordi Monreal MD HPI: Last saw Dr. Monreal, one year of progressive cognitive decline, however, daughter notes longer. [place] , MRI showing atrophy. Concerned for dementia, alzheimers. Started [id number] bid, working on pt care. Patient presents with her daughter for follow-up appointment. At last appointment she was found to have mild to moderate dementia, concerning for Alzheimer based off previous imaging and MoCA. Deferring further testing at this time. Was placed on Namenda 10 mg twice daily and notes improvement in her anxiety since starting this. Daughter notes improvement in some of her short-term memory and word recall. Notes that she no longer takes a long time to search for certain words. No side effects with it including lightheadedness, GI upset or other. No falls since last appointment, no new concerns or symptoms today. Notes that her sleep has been stable, no wandering or worsening confusion in the evening. Patient does live alone in a condo but has many neighbors around her and notes her daughter visits her twice a day, once in the morning once in the evening before she goes to bed. No issues with cooking or cleaning, patient's daughter noting no burnout at this time, no need for further resources. Notes weight has been an issue, a while ago she lost a large amount of weight and since that time they have had some difficulty with sustaining weight. However, weight is stable from previous today. Patient does have a lot of physical activity throughout the day, she walks around her neighborhood, also reads and does Sproxil's at home. Sleep concerns? No, 8 hours a night. Eating/nutrition concerns? yes, keeping an eye on this, has been stable. Med side effects concerns? no Hallucinations? no Social work consult interest? no Wandering/getting lost concern? no Caregiver burnout concern? no Driving safety concern? 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, Except Isthmus (Hcc) Htn (Hypertension) Drug Induced Neutropenia(288.03) Anemia Abnormal Weight Loss Chronic Rlq Pain Functional Dyspepsia Altered Bowel Habits Protein-Calorie Malnutrition, Unspecified Severity (Hcc) Major Depressive Disorder, Single Episode, Mild (Hcc) PAST MEDICAL HISTORY Diagnosis Date Acute gastritis without mention of hemorrhage chronic CAD (coronary artery disease) Heart cath (06/2010) showed small vessel disease Depressive disorder, not elsewhere classified chronic depression Diverticulosis of colon (without mention of hemorrhage) 07/31/05 Endometrial cancer (HCC) partial cervix remains Generalized osteoarthrosis, unspecified site hands HTN (hypertension) Internal hemorrhoids without mention of complication 07/31/05 PMH - PAST MEDICAL HISTORY OF climacteric Snoring Unspecified constipation Medications: Reviewed sertraline (ZOLOFT) 25 mg tablet Take 25 mg by mouth once daily. memantine (NAMENDA) 5 mg tablet Take 1 tablet in AM x1 week, then increase to 1 tablet BID x1 week, then increase to 1 tablet in AM and 2 tablets in PM x1 week. After completing 5 mg Rx, then transition to 10mg tabs (separate Rx). memantine (NAMENDA) 10 mg tablet Take 1 tablet by mouth two times a day. (start after completing 5mg tab titration) terbinafine HCl (LAMISIL) 250 mg tablet Take 1 tablet by mouth once daily. (Patient not taking: Reported on 02/19/2024) rosuvastatin (CRESTOR) 20 mg tablet take 1 tablet daily Lactobac no.41/Bifidobact no.7 (PROBIOTIC-10 ORAL) Take by mouth. omeprazole (PRILOSEC) 20 mg capsule Take 20 mg by mouth once daily. (Patient not taking: Reported on 04/01/2023) ALLERGIES Allergen Reactions Codeine Intolerance hallucinations Lipitor [Atorvastat* Other: See Comments Muscle cramps and joint pains Mucinex [Guaifenesi* Hives Amoxacillin [Amoxic* Rash FAMILY HISTORY Problem Relation Age of Onset Alzheimer's Disease Mother Hypertension Mother Stroke Father Hypertension Father Diabetes Brother Arthritis Hypertension Brother other (carotid surgery) Brother Breast Cancer Maternal Aunt Arthritis Brother other (Multiple Myeloma) Brother Breast Cancer Paternal Aunt Diabetes Paternal Uncle x 4 Diabetes Paternal Aunt x1 PAST SURGICAL HISTORY Procedure Laterality Date COLONOSCOPY FLX DX W/COLLJ SPEC WHEN PFRMD 07/31/05 Per repeat in COLONOSCOPY FLX DX W/COLLJ SPEC WHEN PFRMD 07/03/14 Colonoscopy ESOPHAGOGASTRODUODENOSCOPY TRANSORAL DIAGNOSTIC 08/11/2017 EGD LAPS TOTAL HYSTERECT 250 GM/< W/RMVL TUBE/OVARY 09/2012 part cervix remains/Laparoscopic hysterectomy, bilateral salpingo-oophorectomy, bilateral pelvic and right para-aortic lymphadenectomy, and cystoscopy. LIG/TRNSXJ FLP TUBE ABDL/VAG APPR UNI/BI Tubal ligation PAST SURGICAL HISTORY OF 11/2016 skin lesions that were benign TONSILLECTOMY PRIMARY/SECONDARY <AGE 12 Tonsillectomy Social Hx: @Alcohol Use: Not At Risk (05/07/2020) AUDIT-C Frequency of Alcohol Consumption: 2-3 times a week Average Number of Drinks: 1 or 2 Frequency of Binge Drinking: Never Tobacco Use: Medium Risk (02/21/2024) Patient History Smoking Tobacco Use: Former Smokeless Tobacco Use: Never Passive Exposure: Not on file There were no vitals filed for this visit. Neurologic Exam Modified MoCA: Visual-spatial: Clock draw at 06/17 Namin/3 Attention: 07/20 Language: 07/18 Abstraction: 06/16 Delayed recall: 06/19 Orientation: 10/18 Cognitive and Language: Alert and answered questions appropriately. Language was fluent. Cranial Nerves: Extraocular movements were full with no diplopia or nystagmus. Facial strength was symmetric. Motor: Moves all 4 extremities without any difficulty Sensory: No evidence of neglect Coordination: Normal finger to nose and heel to joy testing bilaterally. Normal gait. Labs: Lab Results Component Value Date WBC 7.30 10/07/2022 HCT 35.6 (L) 10/07/2022 MCV 98.3 10/07/2022 PLT 297 10/07/2022 No results found for: HBA1C Cholesterol, Total Date Value Ref Range Status 06/17/2021 212 (H) <200 mg/dL Final Comment: <200 mg/dL, Desirable 200-239 mg/dL, Borderline high >239 mg/dL, High HDL Cholesterol Date Value Ref Range Status 06/17/2021 53 >39 mg/dL Final Comment: 40-59 mg/dL, Acceptable >59 mg/dL, High: Negative risk factor for coronary heart disease <40 mg/dL, Low: Positive risk factor for coronary heart disease LDL Cholesterol Date Value Ref Range Status 06/17/2021 124 (H) <100 mg/dL Final Comment: <100 mg/dL, Optimal 100-129 mg/dL, Near optimal/above optimal 130-159 mg/dL, Borderline high 160-189 mg/dL, High >189 mg/dL, Very high Secondary prevention optimal LDL Cholesterol levels are recommended to be < 70 mg/dL Triglyceride Date Value Ref Range Status 06/17/2021 173 (H) <150 mg/dL Final Comment: <150 mg/dL, Normal 150-199 mg/dL, Borderline high 200-499 mg/dL, High >499 mg/dL, Very high Lab Results Component Value Date TSH 2.830 10/07/2022 TSH 2.640 06/17/2021 Lab Results Component Value Date B12 436 10/07/2022 Results for orders placed or performed in visit on 04/09/23 LVEF TRANSTHORACIC ECHO Result Value Ref Range LV Ejection Fraction 59 % Radiology: MRI Head/Brain - Last 2 Impressions MRI BRAIN WO IVCON Exam End: 10/31/2022 12:26 PM (Final result) Impression: IMPRESSION: Microvascular ischemic change and volume loss. No acute abnormality. ... MRI BRAIN WWO CONTRAST Collected: 05/20/2010 8:41 AM (Final result) This note was dictated using [employer] speech recognition software and may contain some errors that were a result of the program not accurately transcribing what was dictated, despite efforts to make corrections. Note that unless urgent, test and MRI results will be discussed at next follow-up visit. PROMIS (Patient-Reported Outcomes Measurement Information System) is a set of person-centered measures that evaluates and monitors physical, social, and emotional health. It can be used with the general population and with individuals living with chronic conditions. PROMIS 10: PHYSICAL AND MENTAL HEALTH: 09/22/2020 PHQ-9 PHQ-2 Score 0 PHQ-9 Score 0 Medical Decision Making: Medical Decision Making Level: 1 - N/A I spent a total of 40 minutes on the date of the service which included preparing to see the patient, [id number] patient care, completing clinical documentation, obtaining and/or reviewing separately obtained history, performing a medically appropriate examination, counseling and educating the patient/family/caregiver, and ordering medications, tests, or procedures. documented in this encounter [facility] 02-19-2024 Note HNO ID: [id number] Author: JORDI MONREAL JR, MD Service: ? Author Type: Physician Type: Progress Notes Filed: 02/21/2024 22:07 Note Text: NEW PATIENT (CONSULT) HISTORY AND PHYSICAL EXAM PRIMARY CARE PHYSICIAN: Hubert Forrest MD REASON FOR CONSULT: Memory loss REFERRING PHYSICIAN: Ban Omer APRN.C* CHIEF COMPLAINT: Memory loss Consultation requested by Ban Omer APRN.C* for an opinion regarding chief complaint of Patient presents with: New Patient: Memory difficulty, family hx alz and my final recommendations will be communicated back to the requesting physician by way of shared medical record or letter via US mail. HISTORY OF PRESENT ILLNESS: Jennifer Barboza is a 74 year old female, BMI 18.35 kg/m2 with a PMH significant for that noted below. Presents for approximately 1 year history of progressive cognitive decline. However, daughter present and feels that symptoms might have started in 2018. Pt's mother was diagnosed with dementia in 1993 while in later 60's. Patient lives by self. Patient states in the past year does not react to things going on on the road as well although no MVAs - pt quit driving on her own. Always feels like things were changing but does not specify. Daughter provides history of pt having difficulties keeping weight on and forgetting meals. Daughter does grocery shopping. Forgets immediate close family members names. Forgets stories that happened within 24 hours. Struggles with numbers and daughter has taken over bank accounts and paying bills. No longer can write a list. Daughter feels more progressive than abrupt decline. Pt's passed in 2019 which might have accelerated decline per pt's daughter. Pt with hearing aids for 10 years, but although unchanged, pt acts like they are brand new per daughter. No longer can make coffee. However, daughter feels still safe at moment but working towards 24 hour care. No history of leaving water running, stove top on, or getting lost when was driving. Pt denies depression or anxiety but just states sometimes it is good and sometimes it is bad. Daughter feels pt more anxious. Modified MOCA: Immediate recall: 08/17, 08/17, 09/17 Number repeat: 07/17 Sentence repeat: 07/17 Serial 7s: 100-93-93 06/17 Abstract: 07/17 Orientation: Sept, ?, ?, Wed, ? 07/21 Delayed recall: 07/20 Namin/3 Clock draw: ([place] only) 06/17 MRI brain on 10/31/22 per rad report: Parenchyma: There is moderate generalized parenchymal volume loss. The brain parenchyma is otherwise within normal limits of signal intensity and morphology. Ventricles: Ventriculomegaly corresponds to the degree of parenchymal volume loss. TSH Date Value Ref Range Status 10/07/2022 2.830 0.270 - 4.200 mIU/L Final Vitamin B12 Date Value Ref Range Status 10/07/2022 436 232 - 1,245 pg/mL Final REVIEW OF SYSTEMS GENERAL:No weight loss, malaise or fevers. HEENT:Negative for frequent or significant headaches, No changes in hearing or vision, no nose bleeds or other nasal problems NECK:Negative for lumps, goiter, pain and significant neck swelling RESPIRATORY: Negative for cough, wheezing or shortness of breath. CARDIOVASCULAR: Negative for chest pain or palpitations. GASTROINTESTINAL: Negative for abdominal discomfort, blood in stools or black stools or change in bowel habits GENITOURINARY: No history of dysuria, frequency or incontinence MUSCULOSKELETAL: Negative for joint pain or swelling, back pain or muscle pain. NEUROLOGIC:Negative for focal numbness or weakness, headaches and dizziness or syncope, vision changes, speech/language changes, changes in gait or falls -- besides those complaints as above in HPI. SKIN:Negative for lesions, rash, and itching. PSYCHIATRIC: Negative for sleep disturbance, mood disorder and recent psychosocial stressors. LAB/IMAGING: Reviewed and include: WBC (k/uL) Date Value 10/07/2022 7.30 RBC (m/uL) Date Value 10/07/2022 3.62 (L) Hemoglobin (g/dL) Date Value 10/07/2022 11.8 Hematocrit (%) Date Value 10/07/2022 35.6 (L) MCV (fL) Date Value 10/07/2022 98.3 MCH (pg) Date Value 10/07/2022 32.6 MCHC (g/dL) Date Value 10/07/2022 33.1 RDW-CV (%) Date Value 10/07/2022 12.4 Platelet Count (k/uL) Date Value 10/07/2022 297 MPV (fL) Date Value 10/07/2022 10.2 Glucose (mg/dL) Date Value 10/07/2022 85 BUN (mg/dL) Date Value 10/07/2022 15 Creatinine (mg/dL) Date Value 10/07/2022 0.87 Sodium (mmol/L) Date Value 10/07/2022 141 Potassium (mmol/L) Date Value 10/07/2022 3.8 Chloride (mmol/L) Date Value 10/07/2022 104 CO2 (mmol/L) Date Value 10/07/2022 26 Protein, Total (g/dL) Date Value 10/07/2022 6.4 Albumin (g/dL) Date Value 10/07/2022 4.3 Calcium, Total (mg/dL) Date Value 10/07/2022 9.3 Alkaline Phosphatase (U/L) Date Value 10/07/2022 61 Bilirubin, Total (mg/dL) Date Value 10/07/2022 0.3 AST (U/L) D (more content not included)... [facility] 02-19-2024 History of Present illness Narrative NEW PATIENT (CONSULT) HISTORY AND PHYSICAL EXAM PRIMARY CARE PHYSICIAN: Hubert Forrest MD REASON FOR CONSULT: Memory loss REFERRING PHYSICIAN: Ban Omer, NEGRO.C* CHIEF COMPLAINT: Memory loss Consultation requested by Ban Omer APRN.C* for an opinion regarding chief complaint of Patient presents with: New Patient: Memory difficulty, family hx alz and my final recommendations will be communicated back to the requesting physician by way of shared medical record or letter via [place] mail. HISTORY OF PRESENT ILLNESS: Jennifer Barboza is a 74 year old female, BMI 18.35 kg/m2 with a PMH significant for that noted below. Presents for approximately 1 year history of progressive cognitive decline. However, daughter present and feels that symptoms might have started in 2018. Pt's mother was diagnosed with dementia in 1993 while in later 60's. Patient lives by self. Patient states in the past year does not react to things going on on the road as well although no MVAs - pt quit driving on her own. Always feels like things were changing but does not specify. Daughter provides history of pt having difficulties keeping weight on and forgetting meals. Daughter does grocery shopping. Forgets immediate close family members names. Forgets stories that happened within 24 hours. Struggles with numbers and daughter has taken over bank accounts and paying bills. No longer can write a list. Daughter feels more progressive than abrupt decline. Pt's passed in 2019 which might have accelerated decline per pt's daughter. Pt with hearing aids for 10 years, but although unchanged, pt acts like they are brand new per daughter. No longer can make coffee. However, daughter feels still safe at moment but working towards 24 hour care. No history of leaving water running, stove top on, or getting lost when was driving. Pt denies depression or anxiety but just states sometimes it is good and sometimes it is bad. Daughter feels pt more anxious. Modified MOCA: Immediate recall: 35, 3, 45 Number repeat: 07/17 Sentence repeat: 07/17 Serial 7s: 100-93-93 06/17 Abstract: 07/17 Orientation: Sept, ?, ?, Wed, ? 07/21 Delayed recall: 07/20 Namin/3 Clock draw: ([place] only) 06/17 MRI brain on 10/31/22 per rad report: Parenchyma: There is moderate generalized parenchymal volume loss. The brain parenchyma is otherwise within normal limits of signal intensity and morphology. Ventricles: Ventriculomegaly corresponds to the degree of parenchymal volume loss. TSH Date Value Ref Range Status 10/07/2022 2.830 0.270 - 4.200 mIU/L Final Vitamin B12 Date Value Ref Range Status 10/07/2022 436 232 - 1,245 pg/mL Final REVIEW OF SYSTEMS GENERAL:No weight loss, malaise or fevers. HEENT:Negative for frequent or significant headaches, No changes in hearing or vision, no nose bleeds or other nasal problems NECK:Negative for lumps, goiter, pain and significant neck swelling RESPIRATORY: Negative for cough, wheezing or shortness of breath. CARDIOVASCULAR: Negative for chest pain or palpitations. GASTROINTESTINAL: Negative for abdominal discomfort, blood in stools or black stools or change in bowel habits GENITOURINARY: No history of dysuria, frequency or incontinence MUSCULOSKELETAL: Negative for joint pain or swelling, back pain or muscle pain. NEUROLOGIC:Negative for focal numbness or weakness, headaches and dizziness or syncope, vision changes, speech/language changes, changes in gait or falls -- besides those complaints as above in HPI. SKIN:Negative for lesions, rash, and itching. PSYCHIATRIC: Negative for sleep disturbance, mood disorder and recent psychosocial stressors. LAB/IMAGING: Reviewed and include: WBC (k/uL) Date Value 10/07/2022 7.30 RBC (m/uL) Date Value 10/07/2022 3.62 (L) Hemoglobin (g/dL) Date Value 10/07/2022 11.8 Hematocrit (%) Date Value 10/07/2022 35.6 (L) MCV (fL) Date Value 10/07/2022 98.3 MCH (pg) Date Value 10/07/2022 32.6 MCHC (g/dL) Date Value 10/07/2022 33.1 RDW-CV (%) Date Value 10/07/2022 12.4 Platelet Count (k/uL) Date Value 10/07/2022 297 MPV (fL) Date Value 10/07/2022 10.2 Glucose (mg/dL) Date Value 10/07/2022 85 BUN (mg/dL) Date Value 10/07/2022 15 Creatinine (mg/dL) Date Value 10/07/2022 0.87 Sodium (mmol/L) Date Value 10/07/2022 141 Potassium (mmol/L) Date Value 10/07/2022 3.8 Chloride (mmol/L) Date Value 10/07/2022 104 CO2 (mmol/L) Date Value 10/07/2022 26 Protein, Total (g/dL) Date Value 10/07/2022 6.4 Albumin (g/dL) Date Value 10/07/2022 4.3 Calcium, Total (mg/dL) Date Value 10/07/2022 9.3 Alkaline Phosphatase (U/L) Date Value 10/07/2022 61 Bilirubin, Total (mg/dL) Date Value 10/07/2022 0.3 AST (U/L) Date Value 10/07/2022 23 ALT (U/L) Date Value 10/07/2022 14 Rheumatoid Factor (IU/mL) Date Value 07/18/2004 6 MEDICATIONS: sertraline (ZOLOFT) 25 mg tablet Take 25 mg by mouth once daily. rosuvastatin (CRESTOR) 20 mg tablet take 1 tablet daily Lactobac no.41/Bifidobact no.7 (PROBIOTIC-10 ORAL) Take by mouth. terbinafine HCl (LAMISIL) 250 mg tablet Take 1 tablet by mouth once daily. (Patient not taking: Reported on 02/19/2024) omeprazole (PRILOSEC) 20 mg capsule Take 20 mg by mouth once daily. (Patient not taking: Reported on 04/01/2023) HISTORIES PAST MEDICAL HISTORY No date: Acute gastritis without mention of hemorrhage Comment: chronic No date: CAD (coronary artery disease) Comment: Heart cath (06/2010) showed small vessel disease No date: Depressive disorder, not elsewhere classified Comment: chronic depression 07/31/05: Diverticulosis of colon (without mention of hemorrhage) No date: Endometrial cancer (HCC) Comment: partial cervix remains No date: Generalized osteoarthrosis, unspecified site Comment: hands No date: HTN (hypertension) 07/31/05: Internal hemorrhoids without mention of complication No date: PMH - PAST MEDICAL HISTORY OF Comment: climacteric No date: Snoring No date: Unspecified constipation FAMILY HISTORY Problem Relation Age of Onset Alzheimer's Disease Mother Hypertension Mother Stroke Father Hypertension Father Diabetes Brother Arthritis Hypertension Brother other (carotid surgery) Brother Breast Cancer Maternal Aunt Arthritis Brother other (Multiple Myeloma) Brother Breast Cancer Paternal Aunt Diabetes Paternal Uncle x 4 Diabetes Paternal Aunt x1 SOCIAL HISTORY Social History Tobacco Use Smoking status: Former Current packs/day: 0.00 Average packs/day: 0.5 packs/day for 5.0 years (2.5 ttl pk-yrs) Types: Cigarettes Start date: 04/15/1963 Quit date: 04/15/1968 Years since quittin.8 Smokeless tobacco: Never Vaping Use Vaping status: Never Used Substance Use Topics Alcohol use: Yes Comment: Ocassionally Drug use: No PHYSICAL EXAMINATION BP 137/71 (BP Site: Left Arm, BP Position: Sitting) Pulse (!) 57 Wt 52.3 kg (115 lb 6.4 oz) SpO2 99% BMI 18.35 kg/m GENERAL EXAM: General appearance: NAD, pleasant. HEENT: NC/AT, nasal congestion absent, no oral lesions, membranes moist. NECK: No masses, supple. Lungs: CTA bilaterally. CV: RRR nl S1, S2. Extr: No cyanosis, clubbing or edema. Skin: Cool to touch. NEUROLOGICAL EXAM: General: Awake, alert, oriented x3 (person,place,time), speech fluent, no dysarthria; see MOCA above. CN: PERRL, fundi with no evidence of papilledema, EOMI and without nystagmus, VFF to confrontation, facial sensation and strength are normal and symmetric, hearing is intact to finger rub bilaterally, palate and tongue movements are intact and symmetric. SCM and trapezius strength normal. Motor: Normal tone, bulk and strength (5/5) bilaterally (throughout extremities x4). Coordination: FNF, CARI, HTS intact. No tremors. Sensation: Light touch, vibration, temperature intact throughout. No evidence of neglect. Gait: Stable with normal stride and arm swing. Romberg normal. Assessment and Plan: ASSESSMENT/PLAN: ASSESSMENT/PLAN: 1. Moderate dementia with anxiety, unspecified dementia type (HCC) - ICD9: 294.21, ICD10: F03.B4 (primary diagnosis) 2. Cognitive changes - ICD9: 799.59, ICD10: R41.89 Patient with history and exam findings to suggest a moderate progressive dementia with associated anxiety. MRI brain completed as above, and while not a volumetric study, showing moderate atrophy for age of both cortical and central nature. Metabolic causes have been ruled out, and pt history and MRI not suggestive of NPH. No clear history to suggest pseudodementia. Pattern of cognitive change and imaging not suggestive of a vascular dementia. No changes on MRI to suggest CAA. Given family history, suspect neurodegenerative process and possible Alzheimer's type dementia. Dx d/w pt and her daughter. At this time, I do not feel benefit in further imaging, with pt not wanting any further testing and daughter agrees. However, do feel attempts to treat and slow progression of disease is appropriate. D/w pt and daughter treatment options and will initiate Namenda 5mg that will be titrated up to 10mg BID over next 4 weeks. SE and ADRs d/w pt and daughter. In addition discussed the need for additional care at home, and feel that patient should NOT drive or operate heavy machinery. Daughter states they are working on increasing patient care at this time. I have also encouraged brain exercises and attempts to increase social interaction. Patient will follow up in ~3 months or sooner prn. Jordi Monreal MD I spent a total of 45 minutes on the date of the service which included preparing to see the patient, [id number] patient care, completing clinical documentation, obtaining and/or reviewing separately obtained history, performing a medically appropriate examination, counseling and educating the patient/family/caregiver, ordering medications, tests, or procedures, independently interpreting results (not separately reported), and communicating results to the patient/family/caregiver (this includes reviewing MRI images with pt and her daughter). Medical Decision Making: Problems: Moderate: New problem with uncertain prognosis Data: Unique test result(s) reviewed: 2 Risk: Moderate: Drug management Medical Decision Making Level: 4 - Moderate documented in this encounter [facility] 02-17-2024 Note HNO ID: [id number] Author: MELY BROWN MA Service: ? Author Type: Primary Care Physician Type: Progress Notes Filed: 02/17/2024 10:06 Note Text: POPULATION HEALTH NAVIGATION OUTREACH Action/Latrice Darby [place] Discuss/Due for: Follow Up/ Future Medicare Wellness, Influenza Vaccination Follow up in 1 month from 11/30/2023 office visit /Medicare Wellness due 11/29/2024 HCC Score: 0 Outcome: 1st attempt - Patient answered stated no thank you/hung up prior to asking her date of 2nd attempt - MyChart message sent Reason for Outreach Care Gap/HCC or Scheduling Wellness Visits Care Gaps due: Medicare Annual Wellness Visit Follow-up Appointment Flu Vaccine Patient Contacted: Unable or unnecessary to reach patient: [employer] message sent Navigation Signature: Mely Brown MA February 17, 2024 9:[address] [facility] 02-17-2024 History of Present illness Narrative POPULATION HEALTH NAVIGATION OUTREACH Action/Latrice Darby [place] Discuss/Due for: Follow Up/ Future Medicare Wellness, Influenza Vaccination Follow up in 1 month from 11/30/2023 office visit /Medicare Wellness due 11/29/2024 HCC Score: 0 Outcome: 1st attempt - Patient answered stated no thank you/hung up prior to asking her date of 2nd attempt - [employer] message sent Reason for Outreach Care Gap/HCC or Scheduling Wellness Visits Care Gaps due: Medicare Annual Wellness Visit Follow-up Appointment Flu Vaccine Patient Contacted: Unable or unnecessary to reach patient: [employer] message sent Navigation Signature: Mely Brown MA February 17, 2024 9:06 AM documented in this encounter [facility] 02-17-2024 Note Patient Outreach (NE TNAV) JENNIFER BARBOZA ([id number]) 1950 F Date Time Provider Department 02/17/24 MELY BROWN NETBRADLEYV During your visit today, we recorded the following information about you: Mely Brown MA 02/17/2024 10:06 AM Signed POPULATION HEALTH NAVIGATION OUTREACH Action/Latrice Darby [place] Discuss/Due for: Follow Up/ Future Medicare Wellness, Influenza Vaccination Follow up in 1 month from 11/30/2023 office visit /Medicare Wellness due 11/29/2024 HCC Score: 0 Outcome: 1st attempt - Patient answered stated no thank you/hung up prior to asking her date of 2nd attempt - MyChart message sent Reason for Outreach Care Gap/HCC or Scheduling Wellness Visits Care Gaps due: Medicare Annual Wellness Visit Follow-up Appointment Flu Vaccine Patient Contacted: Unable or unnecessary to reach patient: MyChart message sent Navigation Signature: Mely Brown MA February 17, 2024 9:06 AM Allergies As of Date: 02/17/2024 Noted Allergy Reaction CODEINE 06/30/2005 5 - Intolerance Comments: hallucinations LIPITOR (ATORVASTATIN) 08/25/2012 14 - Other: See Comments Comments: Muscle cramps and joint pains MUCINEX (GUAIFENESIN) 12/04/2011 4 - Hives AMOXACILLIN (AMOXICILLIN) 10/16/2009 2 - Rash Date Reviewed: 01/07/2024 Reviewed by: Dilcia Barboza LPN - Fully Assessed Reason for Visit: Population Health Navigation Outreach [3910] Cmt: Latrice Kirk [place] Prescriptions as of 02/17/2024 - terbinafine HCl (LAMISIL) 250 mg tablet Take 1 tablet by mouth once daily. - rosuvastatin (CRESTOR) 20 mg tablet take 1 tablet daily - Lactobac no.41/Bifidobact no.7 (PROBIOTIC-10 ORAL) Take by mouth. - omeprazole (PRILOSEC) 20 mg capsule Take 20 mg by mouth once daily. Problem List As Of Date 02/17/2024 Noted Resolved Depression [F32.A] ACUTE GASTRITIS W/O HEMORRHAGE [K29.00] 01/07/2007 CONSTIPATION NOS [K59.00] GENERAL OSTEOARTHROSIS [M15.9] 08/05/2005 GASTRITIS/DUODEN NOS W/O HEMORRH [K29.70, K29.9*01/07/2007 Actinic Keratosis (Premalignant AK) [L57.0] 08/08/2009 06/17/2010 Seborrheic Keratosis [L82.1] 08/08/2009 06/17/2010 Melanocytic Nevus: Intradermal of Trunk: back [*08/08/2009 06/17/2010 Solar lentigo [L81.4] 08/08/2009 06/17/2010 Actinic Damage///Sun-Damaged Skin [L57.8] 08/08/2009 06/17/2010 Surgical Scar Fibrosis of Skin: L cheek by nos*08/08/2009 06/17/2010 History of BCC Skin Cancer: L cheek face: 12/01*08/08/2009 06/17/2010 Hyperlipidemia, mixed [E78.2] 06/17/2010 Groin pain [R10.30] 06/17/2011 06/23/2017 Irritated//Inflamed Seborrheic Keratosis [L82.0]11/10/2011 06/23/2017 Actinic skin damage [L57.8] 11/10/2011 06/23/2017 Other Seborrheic Keratoses [L82.1] 11/10/2011 06/23/2017 Solar Lentigines [L81.4] 11/10/2011 06/23/2017 Melanocytic nevus of trunk: Intradermal Nevus o*11/10/2011 06/23/2017 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] 11/10/2011 06/23/2017 Small vessel disease [I73.9] 05/31/2012 PMB (postmenopausal bleeding) [N95.0] 08/17/2012 04/16/2016 Adenocarcinoma of endometrium, stage 1 [C54.1] 09/02/2012 Malignant neoplasm of corpus uteri, except isth*09/14/2012 HTN (hypertension) [I10] Drug induced neutropenia [D70.2] 01/26/2013 Anemia [D64.9] 02/16/2013 Viral warts, unspecified [B07.9] 07/22/2013 06/23/2017 Xerosis cutis [L85.3] 07/22/2013 06/23/2017 Abnormal weight loss [R63.4] 07/03/2017 Chronic RLQ pain [R10.31, G89.29] 07/03/2017 Functional dyspepsia [K30] 07/03/2017 Altered bowel habits [R19.4] 07/03/2017 Protein-calorie malnutrition, unspecified sever*10/06/2022 Major depressive disorder, single episode, mild*10/06/2022 Encounter Status:Closed by MELY BROWN on 02/17/[address] [facility] 01-07-2024 History of Present illness Narrative Radiology Service Progress Note PATIENT NAME: Jennifer Barboza DATE OF SERVICE: January 07, 2024 TIME: 10:50 AM PATIENT IDENTITY VERIFICATION COMPLETED USING TWO (2) IDENTIFIERS: Name and Date of confirmed by patient verbally. FALL SCREENING: Has the patient had 2 falls in the last year or 1 fall with injury or currently using an Ambulatory Assistive Device (Walker, Cane, Wheelchair, Crutches, etc.)? Yes, Patient High Risk for Falls What interventions were put in place to prevent falls during this visit? Offered Assistance with Transfers/Clothing and Instructed Patient to Remain Seated (Not on Exam Table) Until Exam PATIENT GENDER DATA: Female. status: : No status: NO. PATIENT RELEVANT IMPLANT DATA REVIEWED: Not Applicable PATIENT PRESENTS WITH AN IMPLANTABLE OR ATTACHED FISCAL ECONOMIST: No RADIOLOGY DEPARTMENT: General X-ray: Exam(s) Completed: Lower Extremity X-Ray(s): Foot, Left and Wt. Bearing PERIPHERAL IV DATA: Not applicable SIGNED BY: ELLIE Chappell) January 07, 2024 10:50 AM documented in this encounter [facility] 01-07-2024 Note HNO ID: [id number] Author: CARLOTA JESUS RT(R) Service: Radiology Author Type: Technologist Type: Progress Notes Filed: 01/07/2024 11:06 Note Text: Radiology Service Progress Note PATIENT NAME: Jennifer Barboza DATE OF SERVICE: January 07, 2024 TIME: 10:50 AM PATIENT IDENTITY VERIFICATION COMPLETED USING TWO (2) IDENTIFIERS: Name and Date of confirmed by patient verbally. FALL SCREENING: Has the patient had 2 falls in the last year or 1 fall with injury or currently using an Ambulatory Assistive Device (Walker, Cane, Wheelchair, Crutches, etc.)? Yes, Patient High Risk for Falls What interventions were put in place to prevent falls during this visit? Offered Assistance with Transfers/Clothing and Instructed Patient to Remain Seated (Not on Exam Table) Until Exam PATIENT GENDER DATA: Female. status: : No status: NO. PATIENT RELEVANT IMPLANT DATA REVIEWED: Not Applicable PATIENT PRESENTS WITH AN IMPLANTABLE OR ATTACHED FISCAL ECONOMIST: No RADIOLOGY DEPARTMENT: General X-ray: Exam(s) Completed: Lower Extremity X-Ray(s): Foot, Left and Wt. Bearing PERIPHERAL IV DATA: Not applicable SIGNED BY: RT Ta(R) January 07, 2024 10:[address] [facility] 01-07-2024 Note HNO ID: [id number] Author: PATI OLIVA RN Service: ? Author Type: Registered Nurse Type: Progress Notes Filed: 01/07/2024 12:56 Note Text: Per Dr. Ta, Jennifer was provided with a pair of full length gel Comfort Last inserts, size 9 - 10 1/2, and instructed/educated in its application, wear, and care. All questions were answered, and patient was able to demonstrate competence with the necessary skills to utilize the above equipment. Pati Oliva RN [facility] 01-07-2024 History of Present illness Narrative Per Dr. Ta, Jennifer was provided with a pair of full length gel Comfort Last inserts, size 9 - 10 1/2, and instructed/educated in its application, wear, and care. All questions were answered, and patient was able to demonstrate competence with the necessary skills to utilize the above equipment. Pati Oliva RN Consultation requested by Dr. Omer for an opinion regarding nail deformity and pain in left foot. My final recommendations will be communicated back to the requesting physician by way of shared Medical record or letter to requesting physician via US mail. Initial Podiatric Office Visit: Chief Complaint: This 73 year old female who presents with chief complaint:b/l great toenail pain and pain to ball of left foot HPI Edwin presents to clinic for evaluation of b/l feet Her primary issue is pain to b/l great toenail. Has been present since early 2023. She treats the nails with debridement. She denies any history of trauma. She has been on lamisil and is tolerating this medication nicely. 2. Also complains of pain to the ball of left foot. Patient states the pain is present whenever she is walking. Does not matter if she is wearing a shoe or not. PAIN EVALUATION 01/07/2024 1017 Pain Level: 5 Pain Location: Toe Description: Sore Duration Amount of Time: 6 Duration Units: Months Frequency: Intermittent Intervention/Comfort measure: Reposition;Relaxation No results found for: HBA1C PCP: Hubert Forrest MD PAST MEDICAL HISTORY Diagnosis Date Acute gastritis without mention of hemorrhage chronic CAD (coronary artery disease) Heart cath (06/2010) showed small vessel disease Depressive disorder, not elsewhere classified chronic depression Diverticulosis of colon (without mention of hemorrhage) 07/31/05 Endometrial cancer (HCC) partial cervix remains Generalized osteoarthrosis, unspecified site hands HTN (hypertension) Internal hemorrhoids without mention of complication 07/31/05 PMH - PAST MEDICAL HISTORY OF climacteric Snoring Unspecified constipation Current Outpatient Medications Medication Sig terbinafine HCl (LAMISIL) 250 mg tablet Take 1 tablet by mouth once daily. rosuvastatin (CRESTOR) 20 mg tablet take 1 tablet daily Lactobac no.41/Bifidobact no.7 (PROBIOTIC-10 ORAL) Take by mouth. omeprazole (PRILOSEC) 20 mg capsule Take 20 mg by mouth once daily. (Patient not taking: Reported on 04/01/2023) No current facility-administered medications for this visit. ALLERGIES Allergen Reactions Codeine Intolerance hallucinations Lipitor [Atorvastat* Other: See Comments Muscle cramps and joint pains Mucinex [Guaifenesi* Hives Amoxacillin [Amoxic* Rash PAST SURGICAL HISTORY Procedure Laterality Date COLONOSCOPY FLX DX W/COLLJ SPEC WHEN PFRMD 07/31/05 Per repeat in COLONOSCOPY FLX DX W/COLLJ SPEC WHEN PFRMD 07/03/14 Colonoscopy ESOPHAGOGASTRODUODENOSCOPY TRANSORAL DIAGNOSTIC 08/11/2017 EGD LAPS TOTAL HYSTERECT 250 GM/< W/RMVL TUBE/OVARY 09/2012 part cervix remains/Laparoscopic hysterectomy, bilateral salpingo-oophorectomy, bilateral pelvic and right para-aortic lymphadenectomy, and cystoscopy. LIG/TRNSXJ FLP TUBE ABDL/VAG APPR UNI/BI Tubal ligation PAST SURGICAL HISTORY OF 11/2016 skin lesions that were benign TONSILLECTOMY PRIMARY/SECONDARY <AGE 10 Tonsillectomy FAMILY HISTORY Problem Relation Age of Onset Alzheimer's Disease Mother Hypertension Mother Stroke Father Hypertension Father Diabetes Brother Arthritis Hypertension Brother other (carotid surgery) Brother Breast Cancer Maternal Aunt Arthritis Brother other (Multiple Myeloma) Brother Breast Cancer Paternal Aunt Diabetes Paternal Uncle x 4 Diabetes Paternal Aunt x1 Social History Tobacco Use Smoking status: Former Packs/day: 0.50 Years: 5.00 Additional pack years: 0.00 Total pack years: 2.50 Types: Cigarettes Quit date: 04/15/1968 Years since quittin.7 Smokeless tobacco: Never Vaping Use Vaping Use: Never used Substance Use Topics Alcohol use: Yes Comment: Ocassionally Drug use: No REVIEW OF SYSTEMS GENERAL: Negative for Malaise, significant weight loss, fever RESPIRATORY: Negative for cough, wheezing and shortness of breath CARDIOVASCULAR: Negative for chest pain, leg swelling and palpitations GI: Negative for abdominal discomfort, blood in stools or black stools and change in bowel habits : Negative for dysuria, frequency and incontinence MUSCULOSKELETAL: Negative for joint pain or swelling, back pain, and muscle pain. SKIN: Negative for lesions, rash, and itching. HEMATOLOGY/LYMPHOLOGY Negative for prolonged bleeding, bruising easily, and swollen nodes. ENDOCRINE: Negative for cold or heat intolerance, polyuria, polydipsia and goiter. NEURO: negative Physical Exam: Constitutional: Pt is a well developed 73 year old female who is alert, oriented and cooperative Eyes: Following during examination. No redness or drainage. Respiratory: RR normal and nonlabored. Even breathing. No evidence of distress or shortness of breath. Psychology: Patient is engaged during conversation. Normal affect and mood. Does not appear depressed or anxious during encounter. Vascular: Dorsalis pedis and posterior tibial pulses palpable as b/l Capillary Fill time < 5 seconds to digits 1-5 b/l Skin temperature warm to warm proximal to distal b/l Hair growth present to digits Neurological: intact light touch/epicritic sensation + miguel sign of left 2nd interspace intact protective sensation no significant neurological deficits Dermatological: B/l hallux nail plate is discolored and deformed. Webspaces clean and dry 1-4 b/l. Skin appears well hydrated and supple. good color, texture, turgor. No open lesions present. No callosities present. Musculoskeletal/Orthopaedic: Patient has pain to palpation of b/l hallux nail and left 2nd interspace Foot type is neutral structurally AJ ROM is full with knee extended and flexed 1st MPJ is full when loaded and no pain or crepitus are noted with ROM. MTJ, STJ are full and free of pain and crepitus. +5/5 muscle strength dorsiflexion, plantarflexion, inversion, eversion b/l Radiographs: ordered ASSESSMENT: (L60.3) Onychodystrophy (primary encounter diagnosis) Pain in toe (B35.1) Nail fungus (D36.10) Neuroma PLAN: A review of the patient's PMH and Podiatric physical exam was completed. We discussed the possible etiologies of discolored, dystrophic, and thickened nails including fungus, yeast, mold as well as in some instances, prior trauma, or mechanical causes such as repetitive microtrauma in shoe gear. We discussed topical medication for discolored toenails which has very low success but no major side effects. We discussed oral medication. Patient will need hepatic testing prior to use. Patient informed of risks associated with Lamisil. We discussed removal of toenails. Patient has tried lamisil. Will await to see if this helps. If no improvement, could consider permanent nail removal. B/l hallux nail was debrided. Discussed probable neuroma of left 2nd interspace. Will try powerstep gel inserts. If pain fails to improve, could consider steroid injection. Alisha Ta DPM Podiatry [address] [facility] [address] Dept: [phone] Dept AMB ROOMING INTAKE FLOWSHEET DATA Pain Pain Level: 5 Pain Location: Toe Description: Sore Duration Amount of Time: 6 Duration Units: Months Frequency: Intermittent Intervention/Comfort measure: Reposition, Relaxation Patient presents with: Left Great Toe - New, Nail Fungus Right Great Toe - New, Nail Fungus, Mass, Pain Dilcia Barboza LPN documented in this encounter [facility] 01-07-2024 Instructions Alisha Ta - 01/07/2024 10:38 AM EDT Powerstep Original Full length. Can purchase at [facility] [employer] and boots,shoes and more here in [place], [employer] in [place] or [place]. Also can find in [place] in [facility]. Powersteps can also be purchased online, starting around $45.00 If you have a metatarsal or dancer pad for your feet apply the pad directly to the insole so you can interchange between your shoes. Find a shoe with a removable insole and take this out and replace with your powerstep insole. Always bring powersteps with you when shopping for shoes so that you can make sure that everything fits well together documented in this encounter [facility] 01-07-2024 Note HNO ID: [id number] Author: ALISHA TA, ? Service: ? Author Type: Physician Type: Progress Notes Filed: 01/07/2024 12:56 Note Text: Consultation requested by Dr. Omer for an opinion regarding nail deformity and pain in left foot. My final recommendations will be communicated back to the requesting physician by way of shared Medical record or letter to requesting physician via US mail. Initial Podiatric Office Visit: Chief Complaint: This 73 year old female who presents with chief complaint:b/l great toenail pain and pain to ball of left foot HPI Edwin presents to clinic for evaluation of b/l feet Her primary issue is pain to b/l great toenail. Has been present since early 2023. She treats the nails with debridement. She denies any history of trauma. She has been on lamisil and is tolerating this medication nicely. 2. Also complains of pain to the ball of left foot. Patient states the pain is present whenever she is walking. Does not matter if she is wearing a shoe or not. PAIN EVALUATION 01/07/2024 1017 Pain Level: 5 Pain Location: Toe Description: Sore Duration Amount of Time: 6 Duration Units: Months Frequency: Intermittent Intervention/Comfort measure: Reposition;Relaxation No results found for: HBA1C PCP: Hubert Forrest MD PAST MEDICAL HISTORY Diagnosis Date Acute gastritis without mention of hemorrhage chronic CAD (coronary artery disease) Heart cath (06/2010) showed small vessel disease Depressive disorder, not elsewhere classified chronic depression Diverticulosis of colon (without mention of hemorrhage) 07/31/05 Endometrial cancer (HCC) partial cervix remains Generalized osteoarthrosis, unspecified site hands HTN (hypertension) Internal hemorrhoids without mention of complication 07/31/05 PMH - PAST MEDICAL HISTORY OF climacteric Snoring Unspecified constipation Current Outpatient Medications Medication Sig terbinafine HCl (LAMISIL) 250 mg tablet Take 1 tablet by mouth once daily. rosuvastatin (CRESTOR) 20 mg tablet take 1 tablet daily Lactobac no.41/Bifidobact no.7 (PROBIOTIC-10 ORAL) Take by mouth. omeprazole (PRILOSEC) 20 mg capsule Take 20 mg by mouth once daily. (Patient not taking: Reported on 04/01/2023) No current facility-administered medications for this visit. ALLERGIES Allergen Reactions Codeine Intolerance hallucinations Lipitor [Atorvastat* Other: See Comments Muscle cramps and joint pains Mucinex [Guaifenesi* Hives Amoxacillin [Amoxic* Rash PAST SURGICAL HISTORY Procedure Laterality Date COLONOSCOPY FLX DX W/COLLJ SPEC WHEN PFRMD 07/31/05 Per repeat in COLONOSCOPY FLX DX W/COLLJ SPEC WHEN PFRMD 07/03/14 Colonoscopy ESOPHAGOGASTRODUODENOSCOPY TRANSORAL DIAGNOSTIC 08/11/2017 EGD LAPS TOTAL HYSTERECT 250 GM/< W/RMVL TUBE/OVARY 09/2012 part cervix remains/Laparoscopic hysterectomy, bilateral salpingo-oophorectomy, bilateral pelvic and right para-aortic lymphadenectomy, and cystoscopy. LIG/TRNSXJ FLP TUBE ABDL/VAG APPR UNI/BI Tubal ligation PAST SURGICAL HISTORY OF 11/2016 skin lesions that were benign TONSILLECTOMY PRIMARY/SECONDARY Tonsillectomy FAMILY HISTORY Problem Relation Age of Onset Alzheimer's Disease Mother Hypertension Mother Stroke Father Hypertension Father Diabetes Brother Arthritis Hypertension Brother other (carotid surgery) Brother Breast Cancer Maternal Aunt Arthritis Brother other (Multiple Myeloma) Brother Breast Cancer Paternal Aunt Diabetes Paternal Uncle x 4 Diabetes Paternal Aunt x1 Social History Tobacco Use Smoking status: Former Packs/day: 0.50 Years: 5.00 Additional pack years: 0.00 Total pack years: 2.50 Types: Cigarettes Quit date: 04/15/1968 Years since quittin.7 Smokeless tobacco: Never Vaping Use Vaping Use: Never used Substance Use Topics Alcohol use: Yes Comment: Ocassionally Drug use: No REVIEW OF SYSTEMS GENERAL: Negative for Malaise, significant weight loss, fever RESPIRATORY: Negative for cough, wheezing and shortness of breath CARDIOVASCULAR: Negative for chest pain, leg swelling and palpitations GI: Negative for abdominal discomfort, blood in stools or black stools and change in bowel habits : Negative for dysuria, frequency and incontinence MUSCULOSKELETAL: Negative for joint pain or swelling, back pain, and muscle pain. SKIN: Negative for lesions, rash, and itching. HEMATOLOGY/LYMPHOLOGY Negative for prolonged bleeding, bruising easily, and swollen nodes. ENDOCRINE: Negative for cold or heat intolerance, polyuria, polydipsia and goiter. NEURO: negative Physical Exam: Constitutional: Pt is a well developed 73 year old female who is alert, oriented and cooperative Eyes: Following during examination. No redness or drainage. Respiratory: RR normal and nonlabored. Even breathing. No evidence of distress or shortness of breath. Psychology: Patient (more content not included)... [facility] 01-07-2024 Note HNO ID: [id number] Author: DILCIA BARBOZA LPN Service: ? Author Type: LICENSED NURSE Type: Progress Notes Filed: 01/07/2024 12:56 Note Text: AMB ROOMING INTAKE FLOWSHEET DATA Pain Pain Level: 5 Pain Location: Toe Description: Sore Duration Amount of Time: 6 Duration Units: Months Frequency: Intermittent Intervention/Comfort measure: Reposition, Relaxation Patient presents with: Left Great Toe - New, Nail Fungus Right Great Toe - New, Nail Fungus, Mass, Pain Dilcia Barboza LPN [facility] 12-28-2023 Note HNO ID: [id number] Author: LEE ANN BURGOS MA Service: ? Author Type: Primary Care Physician Type: Progress Notes Filed: 12/28/2023 10:08 Note Text: POPULATION HEALTH NAVIGATION OUTREACH Action/FYI Contacted patient to schedule [employer] Annual Wellness Visit, care gaps and HCCs due. 1st attempt: Unable to leave message 2nd attempt: My Chart message sent Reason for Outreach Care Gap/HCC or Scheduling Wellness Visits Care Gaps due: Medicare Annual Wellness Visit Patient Contacted: Unable or unnecessary to reach patient: Unable to leave message Clarivoyhart message sent HCC related Navigation Signature: Lee Ann Burgos MA December 28, 2023 10:[address] [facility] 12-28-2023 History of Present illness Narrative POPULATION HEALTH NAVIGATION OUTREACH Action/FYI Contacted patient to schedule [employer] Annual Wellness Visit, care gaps and HCCs due. 1st attempt: Unable to leave message 2nd attempt: My Chart message sent Reason for Outreach Care Gap/HCC or Scheduling Wellness Visits Care Gaps due: Medicare Annual Wellness Visit Patient Contacted: Unable or unnecessary to reach patient: Unable to leave message Clarivoyhart message sent HCC related Navigation Signature: Lee Ann Burgos MA December 28, 2023 10:08 AM documented in this encounter [facility] 12-28-2023 Note Patient Outreach (NE TNAV) JENNIFER BARBOZA ([id number]) 1950 F Date Time Provider Department 12/28/23 LEE ANN BURGOSV During your visit today, we recorded the following information about you: Lee Ann Burgos MA 12/28/2023 10:08 AM Signed POPULATION HEALTH NAVIGATION OUTREACH Action/FYI Contacted patient to schedule [employer] Annual Wellness Visit, care gaps and HCCs due. 1st attempt: Unable to leave message 2nd attempt: My Chart message sent Reason for Outreach Care Gap/HCC or Scheduling Wellness Visits Care Gaps due: Medicare Annual Wellness Visit Patient Contacted: Unable or unnecessary to reach patient: Unable to leave message Clarivoyhart message sent HCC related Navigation Signature: Lee Ann Burgos MA December 28, 2023 10:08 AM Allergies As of Date: 12/28/2023 Noted Allergy Reaction CODEINE 06/30/2005 5 - Intolerance Comments: hallucinations LIPITOR (ATORVASTATIN) 08/25/2012 14 - Other: See Comments Comments: Muscle cramps and joint pains MUCINEX (GUAIFENESIN) 12/04/2011 4 - Hives AMOXACILLIN (AMOXICILLIN) 10/16/2009 2 - Rash Date Reviewed: 11/30/2023 Reviewed by: Sivan Eugene LPN - Fully Assessed Reason for Visit: Population Health Navigation Outreach [3910] Cmt: [employer] AWV/HCC and care gaps Prescriptions as of 12/28/2023 - terbinafine HCl (LAMISIL) 250 mg tablet Take 1 tablet by mouth once daily. - rosuvastatin (CRESTOR) 20 mg tablet take 1 tablet daily - Lactobac no.41/Bifidobact no.7 (PROBIOTIC-10 ORAL) Take by mouth. - omeprazole (PRILOSEC) 20 mg capsule Take 20 mg by mouth once daily. Problem List As Of Date 12/28/2023 Noted Resolved Depression [F32.A] ACUTE GASTRITIS W/O HEMORRHAGE [K29.00] 01/07/2007 CONSTIPATION NOS [K59.00] GENERAL OSTEOARTHROSIS [M15.9] 08/05/2005 GASTRITIS/DUODEN NOS W/O HEMORRH [K29.70, K29.9*01/07/2007 Actinic Keratosis (Premalignant AK) [L57.0] 08/08/2009 06/17/2010 Seborrheic Keratosis [L82.1] 08/08/2009 06/17/2010 Melanocytic Nevus: Intradermal of Trunk: back [*08/08/2009 06/17/2010 Solar lentigo [L81.4] 08/08/2009 06/17/2010 Actinic Damage///Sun-Damaged Skin [L57.8] 08/08/2009 06/17/2010 Surgical Scar Fibrosis of Skin: L cheek by nos*08/08/2009 06/17/2010 History of BCC Skin Cancer: L cheek face: 12/01*08/08/2009 06/17/2010 Hyperlipidemia, mixed [E78.2] 06/17/2010 Groin pain [R10.30] 06/17/2011 06/23/2017 Irritated//Inflamed Seborrheic Keratosis [L82.0]11/10/2011 06/23/2017 Actinic skin damage [L57.8] 11/10/2011 06/23/2017 Other Seborrheic Keratoses [L82.1] 11/10/2011 06/23/2017 Solar Lentigines [L81.4] 11/10/2011 06/23/2017 Melanocytic nevus of trunk: Intradermal Nevus o*11/10/2011 06/23/2017 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] 11/10/2011 06/23/2017 Small vessel disease [I73.9] 05/31/2012 PMB (postmenopausal bleeding) [N95.0] 08/17/2012 04/16/2016 Adenocarcinoma of endometrium, stage 1 [C54.1] 09/02/2012 Malignant neoplasm of corpus uteri, except isth*09/14/2012 HTN (hypertension) [I10] Drug induced neutropenia [D70.2] 01/26/2013 Anemia [D64.9] 02/16/2013 Viral warts, unspecified [B07.9] 07/22/2013 06/23/2017 Xerosis cutis [L85.3] 07/22/2013 06/23/2017 Abnormal weight loss [R63.4] 07/03/2017 Chronic RLQ pain [R10.31, G89.29] 07/03/2017 Functional dyspepsia [K30] 07/03/2017 Altered bowel habits [R19.4] 07/03/2017 Protein-calorie malnutrition, unspecified sever*10/06/2022 Major depressive disorder, single episode, mild*10/06/2022 Encounter Status:Closed by LEE ANN BURGOS on 12/28/[address] [facility] 11-30-2023 Instructions Ban Omer APRN.CNP - 11/30/2023 11:41 AM EDT Increase Zoloft to 100 mg daily, May use 2 tabs of the 50 mg already in the home. Schedule appointment with Neurology Follow up in 1 month or sooner as needed documented in this encounter [facility] 11-30-2023 History of Present illness Narrative This is a 73 year old female who presents today with: No chief complaint on file. HISTORY OF PRESENT ILLNESS: Jennifer Barboza is a 73 year old female. No chief complaint on file. 1 month follow up. Anxiety: Last month increase Zoloft to 75 mg daily. Patient feels like she doesn't notice much of a difference. She still has loss of interest in doing things and feeling down. Her appetite is still decreased. She reports eating 2 meals a day and grazes throughout the day. Denies SI/HI. Memory: Patient reports she has noticed increased memory difficulty. She reports that she will think of a word and forget it-Memory Recall. She reports she stopped driving because she knows her memory is changing. Denies forgetting to turn off the stove/oven. Mother was diagnosed with Alzheimer's. Toenail injury, referral was placed at last office visit for consult with podiatry. Has appointment in two weeks. PAST MEDICAL HISTORY: PAST MEDICAL HISTORY Diagnosis Date Acute gastritis without mention of hemorrhage chronic CAD (coronary artery disease) Heart cath (06/2010) showed small vessel disease Depressive disorder, not elsewhere classified chronic depression Diverticulosis of colon (without mention of hemorrhage) 07/31/05 Endometrial cancer (HCC) partial cervix remains Generalized osteoarthrosis, unspecified site hands HTN (hypertension) Internal hemorrhoids without mention of complication 07/31/05 PMH - PAST MEDICAL HISTORY OF climacteric Snoring Unspecified constipation PAST SURGICAL HISTORY Procedure Laterality Date COLONOSCOPY FLX DX W/COLLJ SPEC WHEN PFRMD 07/31/05 Per repeat in COLONOSCOPY FLX DX W/COLLJ SPEC WHEN PFRMD 07/03/14 Colonoscopy ESOPHAGOGASTRODUODENOSCOPY TRANSORAL DIAGNOSTIC 08/11/2017 EGD LAPS TOTAL HYSTERECT 250 GM/< W/RMVL TUBE/OVARY 09/2012 part cervix remains/Laparoscopic hysterectomy, bilateral salpingo-oophorectomy, bilateral pelvic and right para-aortic lymphadenectomy, and cystoscopy. LIG/TRNSXJ FLP TUBE ABDL/VAG APPR UNI/BI Tubal ligation PAST SURGICAL HISTORY OF 11/2016 skin lesions that were benign TONSILLECTOMY PRIMARY/SECONDARY <AGE 12 Tonsillectomy ALLERGIES Codeine, Lipitor [Atorvastatin], Mucinex [Guaifenesin], and Amoxacillin [Amoxicillin] MEDICATIONS Current Outpatient Medications Medication Sig terbinafine HCl (LAMISIL) 250 mg tablet Take 1 tablet by mouth once daily. sertraline (ZOLOFT) 25 mg tablet Take 1 tablet by mouth once daily. sertraline (ZOLOFT) 50 mg tablet take 1 tablet daily rosuvastatin (CRESTOR) 20 mg tablet take 1 tablet daily Lactobac no.41/Bifidobact no.7 (PROBIOTIC-10 ORAL) Take by mouth. omeprazole (PRILOSEC) 20 mg capsule Take 20 mg by mouth once daily. (Patient not taking: Reported on 04/01/2023) No current facility-administered medications for this visit. FAMILY HISTORY Problem Relation Age of Onset Alzheimer's Disease Mother Hypertension Mother Stroke Father Hypertension Father Diabetes Brother Arthritis Hypertension Brother other (carotid surgery) Brother Breast Cancer Maternal Aunt Arthritis Brother other (Multiple Myeloma) Brother Breast Cancer Paternal Aunt Diabetes Paternal Uncle x 4 Diabetes Paternal Aunt x1 Social History Tobacco Use Smoking status: Former Packs/day: 0.50 Years: 5.00 Additional pack years: 0.00 Total pack years: 2.50 Types: Cigarettes Quit date: 04/15/1968 Years since quittin.6 Smokeless tobacco: Never Vaping Use Vaping Use: Never used Substance Use Topics Alcohol use: Yes Comment: Ocassionally Drug use: No REVIEW OF SYSTEMS GENERAL: No weight loss, malaise or fevers/chills HEENT: Negative for frequent or significant headaches, No changes in hearing or vision. NECK: Negative for lumps, goiter, pain and significant neck swelling RESPIRATORY: Negative for cough, hemoptysis, wheezing, dyspnea or shortness of breath CARDIOVASCULAR: Negative for chest pain, leg swelling, orthopnea, or palpitations GI: No nausea, vomiting, or diarrhea/constipation. No hematochezia/melena. No heartburn or reflux symptoms. : No history of dysuria, frequency or incontinence MUSCULOSKELETAL: Negative for joint pain or swelling. SKIN: Negative for lesions, rash, and itching ENDOCRINE: Negative for cold or heat intolerance, polyuria, polydipsia and goiter NEURO: No history of headaches, syncope, paralysis, seizures or tremors. + Memory changes MOOD: Negative for suicidal ideation. +sadness EXAM: BP 124/56 Pulse (!) 57 Resp 16 Wt 52.2 kg (115 lb) SpO2 100% BMI 18.28 kg/m PHYSICAL EXAM: General Appearance: Well appearing, alert, in no acute distress, well-hydrated, well nourished.. Skin: Skin color, texture, turgor normal, no suspicious rashes or lesions. Head: Normocephalic, no masses, lesions, tenderness or abnormalities. Eyes: Anicteric sclera. Extraocular movements are intact. . Lungs: Lungs clear to auscultation. No wheezing, rhonchi, rales.. Heart: RRR without murmur, gallop, or rubs. No ectopy. Extremities: No deformities, edema, skin discoloration, clubbing or cyanosis. Good capillary refill. . Peripheral Pulses: Normal, Capillary refill <2secs, strong peripheral pulses, Pulses palpable. Neurologic: Gait normal. Sensation grossly intact. +difficulty with memory recall during exam Mood: +flat affect, pleasant, good eye contact ASSESSMENT/PLAN: 1. Anxiety with depression - ICD9: 300.4, ICD10: F41.8 (primary diagnosis) - Increased Zoloft to 100 mg daily - May use 2 tablets of the 50 mg Zoloft at home - Follow up in 1 month 2. Pain around toenail, left foot - ICD9: 729.5, ICD10: M79.675 - Keep scheduled appointment with Podiatry 3. Cognitive changes - ICD9: 799.59, ICD10: R41.89 - Recommend consult with neurology - CONSULT TO NEUROLOGY Follow up in 1 month Discussed treatment plan and patient voices understanding. Patient's questions answered appropriately. Medications and potential side effects were discussed and patient voices understanding. Ban Omer APRN.CNP This note was partially generated using [employer] voice recognition system. Note was reviewed for accuracy. There may be minor misspellings or grammar miscues with [employer] voice recognition. documented in this encounter [facility] 11-30-2023 Note HNO ID: [id number] Author: BAN OMER APRN.CNP Service: ? Author Type: Nurse Practitioner Type: Progress Notes Filed: 11/30/2023 12:09 Note Text: This is a 73 year old female who presents today with: No chief complaint on file. HISTORY OF PRESENT ILLNESS: Jennifer Barboza is a 73 year old female. No chief complaint on file. 1 month follow up. Anxiety: Last month increase Zoloft to 75 mg daily. Patient feels like she doesn't notice much of a difference. She still has loss of interest in doing things and feeling down. Her appetite is still decreased. She reports eating 2 meals a day and grazes throughout the day. Denies SI/HI. Memory: Patient reports she has noticed increased memory difficulty. She reports that she will think of a word and forget it-Memory Recall. She reports she stopped driving because she knows her memory is changing. Denies forgetting to turn off the stove/oven. Mother was diagnosed with Alzheimer's. Toenail injury, referral was placed at last office visit for consult with podiatry. Has appointment in two weeks. PAST MEDICAL HISTORY: PAST MEDICAL HISTORY Diagnosis Date Acute gastritis without mention of hemorrhage chronic CAD (coronary artery disease) Heart cath (06/2010) showed small vessel disease Depressive disorder, not elsewhere classified chronic depression Diverticulosis of colon (without mention of hemorrhage) 07/31/05 Endometrial cancer (HCC) partial cervix remains Generalized osteoarthrosis, unspecified site hands HTN (hypertension) Internal hemorrhoids without mention of complication 07/31/05 PMH - PAST MEDICAL HISTORY OF climacteric Snoring Unspecified constipation PAST SURGICAL HISTORY Procedure Laterality Date COLONOSCOPY FLX DX W/COLLJ SPEC WHEN PFRMD 07/31/05 Per repeat in COLONOSCOPY FLX DX W/COLLJ SPEC WHEN PFRMD 07/03/14 Colonoscopy ESOPHAGOGASTRODUODENOSCOPY TRANSORAL DIAGNOSTIC 08/11/2017 EGD LAPS TOTAL HYSTERECT 250 GM/< W/RMVL TUBE/OVARY 09/2012 part cervix remains/Laparoscopic hysterectomy, bilateral salpingo-oophorectomy, bilateral pelvic and right para-aortic lymphadenectomy, and cystoscopy. LIG/TRNSXJ FLP TUBE ABDL/VAG APPR UNI/BI Tubal ligation PAST SURGICAL HISTORY OF 11/2016 skin lesions that were benign TONSILLECTOMY PRIMARY/SECONDARY Tonsillectomy ALLERGIES Codeine, Lipitor [Atorvastatin], Mucinex [Guaifenesin], and Amoxacillin [Amoxicillin] MEDICATIONS Current Outpatient Medications Medication Sig terbinafine HCl (LAMISIL) 250 mg tablet Take 1 tablet by mouth once daily. sertraline (ZOLOFT) 25 mg tablet Take 1 tablet by mouth once daily. sertraline (ZOLOFT) 50 mg tablet take 1 tablet daily rosuvastatin (CRESTOR) 20 mg tablet take 1 tablet daily Lactobac no.41/Bifidobact no.7 (PROBIOTIC-10 ORAL) Take by mouth. omeprazole (PRILOSEC) 20 mg capsule Take 20 mg by mouth once daily. (Patient not taking: Reported on 04/01/2023) No current facility-administered medications for this visit. FAMILY HISTORY Problem Relation Age of Onset Alzheimer's Disease Mother Hypertension Mother Stroke Father Hypertension Father Diabetes Brother Arthritis Hypertension Brother other (carotid surgery) Brother Breast Cancer Maternal Aunt Arthritis Brother other (Multiple Myeloma) Brother Breast Cancer Paternal Aunt Diabetes Paternal Uncle x 4 Diabetes Paternal Aunt x1 Social History Tobacco Use Smoking status: Former Packs/day: 0.50 Years: 5.00 Additional pack years: 0.00 Total pack years: 2.50 Types: Cigarettes Quit date: 04/15/1968 Years since quittin.6 Smokeless tobacco: Never Vaping Use Vaping Use: Never used Substance Use Topics Alcohol use: Yes Comment: Ocassionally Drug use: No REVIEW OF SYSTEMS GENERAL: No weight loss, malaise or fevers/chills HEENT: Negative for frequent or significant headaches, No changes in hearing or vision. NECK: Negative for lumps, goiter, pain and significant neck swelling RESPIRATORY: Negative for cough, hemoptysis, wheezing, dyspnea or shortness of breath CARDIOVASCULAR: Negative for chest pain, leg swelling, orthopnea, or palpitations GI: No nausea, vomiting, or diarrhea/constipation. No hematochezia/melena. No heartburn or reflux symptoms. : No history of dysuria, frequency or incontinence MUSCULOSKELETAL: Negative for joint pain or swelling. SKIN: Negative for lesions, rash, and itching ENDOCRINE: Negative for cold or heat intolerance, polyuria, polydipsia and goiter NEURO: No history of headaches, syncope, paralysis, seizures or tremors. + Memory changes MOOD: Negative for suicidal ideation. +sadness EXAM: BP 124/56 Pulse (!) 57 Resp 16 Wt 52.2 kg (115 lb) SpO2 100% BMI 18.28 kg/m? PHYSICAL EXAM: General Appearance: Well appearing, alert, in no acute distress, well-hydrated, well nourished.. Skin: Skin color, texture, turgor normal, no suspicious rashes or lesion (more content not included)... [facility] 10-27-2023 Telephone encounter Note Call placed to daughter (Daniela) and message given. Daniela is going to call around and see which office can get her in soonest and will call back to have referral sent to that office if finds a provider than can see patient before December. Daysi Griffin RN [facility] 10-27-2023 Miscellaneous Notes Call placed to daughter (Daniela) and message given. Daniela is going to call around and see which office can get her in soonest and will call back to have referral sent to that office if finds a provider than can see patient before December. Daysi Griffin RN She could try to get in to a [employer] [employer] [facility] outside [place] and see if she could get in sooner. Dr Miller in [place] is also good. Hubert Forrest MD Pts daughter called and is notified of providers message and instructions. She voices understanding, but states the one toe is starting to get as bad the other and she can barely walk on that one. She is asking with her podiatry appointment not being until 01/07/24, what if she loses he mobility due to worsening infection. I let her know that provider sent in the Lamisil pills, which is what is primarily used for toenail fungal infections. This should help clear up the infections, but the daughter was still worried and wanted a call back about the loss of mobility and the appointment being so far off. I told her that unfortunately there isn't much the provider could do about moving the appointment up. Please call and advise. Anjali Babulski, RN She may go ahead and start on Lamisil pills once daily, as ordered, which is what is primarily used for toenail fungal infections. Hubert Forrest MD Daughter (Daniela) calls to ask if there is anything that can be prescribed for nail fungus prior to appointment with Dr. Ta on 01/07/2024 (first available). She reports that right toenail also has some but not as bad and patient is having more pain than she let on at appointment on 10/22/2023. Daniela is going to check locally to see if anyone can get her in sooner for a podiatry consult and call back if needs a referral sent somewhere else. Daniela is asking if there is anything that might help patient with the pain in the mean time. She reports the main thing patient likes to do is walk and she has quit doing that because of the amount of pain the she is having because of the nails. Forwarding to Dr. Forrest since Ban is out. Please review and advise, Daysi Griffin RN documented in this encounter [facility] 10-26-2023 Telephone encounter Note She could try to get in to a [employer] [facility] outside [place] and see if she could get in sooner. Dr Miller in [place] is also good. Hubert Forrest MD [facility] 10-23-2023 Telephone encounter Note Pts daughter called and is notified of providers message and instructions. She voices understanding, but states the one toe is starting to get as bad the other and she can barely walk on that one. She is asking with her podiatry appointment not being until 01/07/24, what if she loses he mobility due to worsening infection. I let her know that provider sent in the Lamisil pills, which is what is primarily used for toenail fungal infections. This should help clear up the infections, but the daughter was still worried and wanted a call back about the loss of mobility and the appointment being so far off. I told her that unfortunately there isn't much the provider could do about moving the appointment up. Please call and advise. Anjali aMyfield RN T [facility] 10-23-2023 Telephone encounter Note She may go ahead and start on Lamisil pills once daily, as ordered, which is what is primarily used for toenail fungal infections. Hubert Forrest MD [facility] 10-23-2023 Telephone encounter Note Daughter (Daniela) calls to ask if there is anything that can be prescribed for nail fungus prior to appointment with Dr. Ta on 01/07/2024 (first available). She reports that right toenail also has some but not as bad and patient is having more pain than she let on at appointment on 10/22/2023. Daniela is going to check locally to see if anyone can get her in sooner for a podiatry consult and call back if needs a referral sent somewhere else. Daniela is asking if there is anything that might help patient with the pain in the mean time. She reports the main thing patient likes to do is walk and she has quit doing that because of the amount of pain the she is having because of the nails. Forwarding to Dr. Forrest since Ban is out. Please review and advise, Daysi Griffin RN [facility] 10-22-2023 Instructions Ban Omer APRN.DATAB[employer]ES COMPUTER CONSULTANT - 10/22/2023 11:24 AM EDT Increase Zoloft, take an additional 25 mg tablet along with the 50 mg tablet, total 75 mg daily. Recommend consult with podiatry for toes Continue to monitor toes, any increased redness, warmth, or discharge contact the office. Follow up in 1 month. documented in this encounter [facility] 10-22-2023 History of Present illness Narrative This is a 73 year old female who presents today with: Patient presents with: Derm Problem: Big toe discoloration, bilaterally, darkened skin and redness in the left x 6 months, no discharge but was bleeding on the left toe a few months ago Anxiety: Patient and daughter states this has been worsening over the last year, worrying and anxious to leave the house HISTORY OF PRESENT ILLNESS: Jennifer Barboza is a 73 year old female. Patient presents with: Derm Problem: Big toe discoloration, bilaterally, darkened skin and redness in the left x 6 months, no discharge but was bleeding on the left toe a few months ago Anxiety: Patient and daughter states this has been worsening over the last year, worrying and anxious to leave the house Daughter present for this exam. Here in the office for discoloration of toenails. Started aboaut 6 months ago. Denies injury to the area. Left big toenial is tender. No discharge, fever, or chills. . Anxiety: Worried about making certain decisions. Over thinking and anxiety . Increased sadness at times.Taking Zoloft 50 mg daily. No Si/Hi PAST MEDICAL HISTORY: PAST MEDICAL HISTORY Diagnosis Date Acute gastritis without mention of hemorrhage chronic CAD (coronary artery disease) Heart cath (06/2010) showed small vessel disease Depressive disorder, not elsewhere classified chronic depression Diverticulosis of colon (without mention of hemorrhage) 07/31/05 Endometrial cancer (HCC) partial cervix remains Generalized osteoarthrosis, unspecified site hands HTN (hypertension) Internal hemorrhoids without mention of complication 07/31/05 PMH - PAST MEDICAL HISTORY OF climacteric Snoring Unspecified constipation PAST SURGICAL HISTORY Procedure Laterality Date COLONOSCOPY FLX DX W/COLLJ SPEC WHEN PFRMD 07/31/05 Per repeat in COLONOSCOPY FLX DX W/COLLJ SPEC WHEN PFRMD 07/03/14 Colonoscopy ESOPHAGOGASTRODUODENOSCOPY TRANSORAL DIAGNOSTIC 08/11/2017 EGD LAPS TOTAL HYSTERECT 250 GM/< W/RMVL TUBE/OVARY 09/2012 part cervix remains/Laparoscopic hysterectomy, bilateral salpingo-oophorectomy, bilateral pelvic and right para-aortic lymphadenectomy, and cystoscopy. LIG/TRNSXJ FLP TUBE ABDL/VAG APPR UNI/BI Tubal ligation PAST SURGICAL HISTORY OF 11/2016 skin lesions that were benign TONSILLECTOMY PRIMARY/SECONDARY <AGE 12 Tonsillectomy ALLERGIES Codeine, Lipitor [Atorvastatin], Mucinex [Guaifenesin], and Amoxacillin [Amoxicillin] MEDICATIONS Current Outpatient Medications Medication Sig sertraline (ZOLOFT) 50 mg tablet take 1 tablet daily rosuvastatin (CRESTOR) 20 mg tablet take 1 tablet daily Lactobac no.41/Bifidobact no.7 (PROBIOTIC-10 ORAL) Take by mouth. omeprazole (PRILOSEC) 20 mg capsule Take 20 mg by mouth once daily. (Patient not taking: Reported on 04/01/2023) No current facility-administered medications for this visit. FAMILY HISTORY Problem Relation Age of Onset Alzheimer's Disease Mother Hypertension Mother Stroke Father Hypertension Father Diabetes Brother Arthritis Hypertension Brother other (carotid surgery) Brother Breast Cancer Maternal Aunt Arthritis Brother other (Multiple Myeloma) Brother Breast Cancer Paternal Aunt Diabetes Paternal Uncle x 4 Diabetes Paternal Aunt x1 Social History Tobacco Use Smoking status: Former Packs/day: 0.50 Years: 5.00 Additional pack years: 0.00 Total pack years: 2.50 Types: Cigarettes Quit date: 04/15/1968 Years since quittin.5 Smokeless tobacco: Never Vaping Use Vaping Use: Never used Substance Use Topics Alcohol use: Yes Comment: Ocassionally Drug use: No REVIEW OF SYSTEMS GENERAL: No weight loss, malaise or fevers/chills HEENT: Negative for frequent or significant headaches, No changes in hearing or vision. NECK: Negative for lumps, goiter, pain and significant neck swelling RESPIRATORY: Negative for cough, hemoptysis, wheezing, dyspnea or shortness of breath CARDIOVASCULAR: Negative for chest pain, leg swelling, orthopnea, or palpitations GI: No nausea, vomiting, or diarrhea/constipation. No hematochezia/melena. No heartburn or reflux symptoms. : No history of dysuria, frequency or incontinence MUSCULOSKELETAL: + Toe Pain SKIN: Negative for lesions, rash, and itching ENDOCRINE: Negative for cold or heat intolerance, polyuria, polydipsia and goiter NEURO: No history of headaches, syncope, paralysis, seizures or tremors MOOD: + Anxiety, sadness EXAM: BP 116/76 Pulse 60 Temp 37.1 C (98.7 F) Resp 16 Wt 51.5 kg (113 lb 9.6 oz) BMI 18.06 kg/m PHYSICAL EXAM: General Appearance: Well appearing, alert, in no acute distress, well-hydrated, well nourished.. Skin: bilateral big toenail, thickened, yellow, dark spots. Cuticle surrounding the left big toenail has mild erythema. Toenails are tender to touch. No increased warmth or discharge noted. Left big Toenail seems to be lifting off of nail bed. Head: Normocephalic, no masses, lesions, tenderness or abnormalities. Eyes: Anicteric sclera. Extraocular movements are intact. Extremities: No deformities, edema, skin discoloration, clubbing or cyanosis. Good capillary refill. Musculoskeletal: No joint swelling, deformity, or tenderness. Peripheral Pulses: Normal, Capillary refill <2secs, strong peripheral pulses, Pulses palpable. Neurologic: Gait normal. Sensation grossly intact. Mood: Pleasant, good eye contact. ASSESSMENT/PLAN: 1. Nail fungus - ICD9: 110.1, ICD10: B35.1 (primary diagnosis) - Recommend consult to podiatry - Toenail may fall off. - CONSULT TO PODIATRY 2. Pain around toenail, left foot - ICD9: 729.5, ICD10: M79.675 - Instructed to monitor toe, contact the office with any increased redness, warmth to touch, or seeping. - CONSULT TO PODIATRY 3. Anxiety with depression - ICD9: 300.4, ICD10: F41.8 - Increase zoloft 75 mg daily - Add on additional 25 mg tablet with current 50 mg tablet. - Follow up in 1 month. - SERTRALINE 25 MG TABLET Follow-up in 1 month or sooner as needed. Discussed treatment plan and patient voices understanding. Patient's questions answered appropriately. Medications and potential side effects were discussed and patient voices understanding. Ban Omer APRN.CNP This note was partially generated using [employer] voice recognition system. Note was reviewed for accuracy. There may be minor misspellings or grammar miscues with [email or web address] voice recognition. documented in this encounter [facility] 08-04-2023 History of Present illness Narrative POPULATION HEALTH NAVIGATION OUTREACH Action/FYI - HCC Medicare Project Last office visit: 04/01/23 - due for Medicare Wellness Visit Influenza Vaccine(1) due on 02/13/2023 Spoke with pt who declines scheduling appt at this time. Patient Identified by Name and : YES, via phone Outreach Outcome/Action Spoke to patient / parent / legal guardian: Patient declined. Not interested in scheduling Did you use a PCP flex slot to schedule this appointment? N/A Reason for Outreach HCC or suspected condition Payer: Payor: [employer] MEDICARE / Plan: [employer] MEDICARE PPO / Product Type: PPO / Care Gap Reviewed:: Annual Wellness visit Flu Vaccine Reminder: Reminder note to check Health Maintenance for items below Health Maintenance items due: Hepatitis C Screening Never done RSV Vaccine(1 - 1-dose 60+ series) Never done Pneumococcal Vaccine: 65+(2 of 2 - PCV) due on 12/30/2014 DTaP,Tdap,Td Vaccine(2 - Td or Tdap) due on 12/03/2021 Influenza Vaccine(1) due on 02/13/2023 Covid-19 Vaccine(3 - 2022- season) due on 02/13/2023 Advance Directive Discussion Never done Navigation Signature: Ernestine Medina MA August 04, 2023 9:28 AM documented in this encounter [facility] 05-04-2023 Miscellaneous Notes The following approved medication requests have been transmitted electronically. Requested Prescriptions Pending Prescriptions Disp Refills sertraline (ZOLOFT) 50 mg tablet [Pharmacy Med Name: SERTRALINE HCL TABS 50MG] 90 tablet 3 Sig: take 1 tablet daily Milton Bernard APRN.CNP Last office visit: 04/01/23/u scheduled: none Stacie Jaimes Ma documented in this encounter [facility] 05-01-2023 Miscellaneous Notes Phoned patient and given provider's message below with verbalized understanding. Please let the patient know that her ultrasound of the carotids showed minimal stenosis, plaque. Likely not causing dizziness. Recommendation is to continue with plan to see cardiology as scheduled. Milton Bernard APRN.CNP documented in this encounter [facility] 04-13-2023 Miscellaneous Notes The following approved medication requests have been transmitted electronically. Requested Prescriptions Pending Prescriptions Disp Refills rosuvastatin (CRESTOR) 20 mg tablet [Pharmacy Med Name: ROSUVASTATIN TABS 20MG] 90 tablet 3 Sig: take 1 tablet daily Milton Bernard APRN.CNP Last office visit: 04/01/23/u scheduled: none Stacie Jaimes Ma documented in this encounter [facility] 04-01-2023 Instructions Ban Omer APRN.CNP - 04/01/2023 10:49 AM EDT Schedule appointment to get Echo and carotid ultrasound Schedule appointment with cardiology Be careful when changing positions (sitting to standing, standing for long periods of time) Use Flonase twice a day to help with ear pressure Red flag symptoms, such as chest pain go to ER. Follow up pending test results. documented in this encounter [facility] 04-01-2023 History of Present illness Narrative This is a 73 year old female who presents today with: Patient presents with: Acute Visit: low BP, dizziness HISTORY OF PRESENT ILLNESS: Jennifer Barboza is a 73 year old female. Patient presents with: Acute Visit: low BP, dizziness Follow up for Dizziness and Blood pressure. This has been ongoing for the past year. Diagnosed with orthostatic hypotension. Tries to be mindful with position changes. Currently not taking any cardiac medications or other medications that may cause dizziness/syncope. Staying well-hydrated throughout the day. Had 1 episode of LOC in December. Slid down, no injury. Lasting seconds. Dizziness occurring daily several times per day. Stopped going to the gym due to symptoms. Burning left sided chest pressure/shoulder. Pressure in the ear, saw ENT last week. Right ear pressure, worse when outdoors. Refers that she had low blood pressure. PAST MEDICAL HISTORY: PAST MEDICAL HISTORY Diagnosis Date Acute gastritis without mention of hemorrhage chronic CAD (coronary artery disease) Heart cath (06/2010) showed small vessel disease Depressive disorder, not elsewhere classified chronic depression Diverticulosis of colon (without mention of hemorrhage) 07/31/05 Endometrial cancer (HCC) partial cervix remains Generalized osteoarthrosis, unspecified site hands HTN (hypertension) Internal hemorrhoids without mention of complication 07/31/05 PMH - PAST MEDICAL HISTORY OF climacteric Snoring Unspecified constipation PAST SURGICAL HISTORY Procedure Laterality Date COLONOSCOPY FLX DX W/COLLJ SPEC WHEN PFRMD 07/31/05 Per repeat in COLONOSCOPY FLX DX W/COLLJ SPEC WHEN PFRMD 07/03/14 Colonoscopy ESOPHAGOGASTRODUODENOSCOPY TRANSORAL DIAGNOSTIC 08/11/2017 EGD LAPS TOTAL HYSTERECT 250 GM/< W/RMVL TUBE/OVARY 09/2012 part cervix remains/Laparoscopic hysterectomy, bilateral salpingo-oophorectomy, bilateral pelvic and right para-aortic lymphadenectomy, and cystoscopy. LIG/TRNSXJ FLP TUBE ABDL/VAG APPR UNI/BI Tubal ligation PAST SURGICAL HISTORY OF 11/2016 skin lesions that were benign TONSILLECTOMY PRIMARY/SECONDARY <AGE 12 Tonsillectomy ALLERGIES Codeine, Lipitor [Atorvastatin], Mucinex [Guaifenesin], and Amoxacillin [Amoxicillin] MEDICATIONS Current Outpatient Medications Medication Sig omeprazole (PRILOSEC) 20 mg capsule Take 20 mg by mouth once daily. rosuvastatin (CRESTOR) 20 mg tablet Take 1 tablet by mouth once daily. sertraline (ZOLOFT) 50 mg tablet Take 1 tablet by mouth once daily. No current facility-administered medications for this visit. FAMILY HISTORY Problem Relation Age of Onset Alzheimer's Disease Mother Hypertension Mother Stroke Father Hypertension Father Diabetes Brother Arthritis Hypertension Brother other (carotid surgery) Brother Breast Cancer Maternal Aunt Arthritis Brother other (Multiple Myeloma) Brother Breast Cancer Paternal Aunt Diabetes Paternal Uncle x 4 Diabetes Paternal Aunt x1 Social History Tobacco Use Smoking status: Former Packs/day: 0.50 Years: 5.00 Additional pack years: 0.00 Total pack years: 2.50 Types: Cigarettes Quit date: 04/15/1968 Years since quittin.9 Smokeless tobacco: Never Vaping Use Vaping Use: Never used Substance Use Topics Alcohol use: Yes Comment: Ocassionally Drug use: No REVIEW OF SYSTEMS GENERAL: No weight loss, malaise or fevers/chills HEENT: + Right ear pressure NECK: Negative for lumps, goiter, pain and significant neck swelling RESPIRATORY: Negative for cough, hemoptysis, wheezing, dyspnea or shortness of breath CARDIOVASCULAR: Negative for chest pain, leg swelling, orthopnea, or palpitations GI: No nausea, vomiting, or diarrhea/constipation. No hematochezia/melena. No heartburn or reflux symptoms. : No history of dysuria, frequency or incontinence MUSCULOSKELETAL: Negative for joint pain or swelling. SKIN: Negative for lesions, rash, and itching ENDOCRINE: Negative for cold or heat intolerance, polyuria, polydipsia and goiter NEURO: + Dizziness MOOD: Negative for depression, anxiety, or suicidal ideation. EXAM: BP 92/56 Pulse 63 Resp 16 Wt 52.6 kg (116 lb) SpO2 98% BMI 18.44 kg/m PHYSICAL EXAM: General Appearance: Well appearing, alert, in no acute distress, well-hydrated, well nourished. Skin: Skin color, texture, turgor normal, no suspicious rashes or lesions. Head: Normocephalic, no masses, lesions, tenderness or abnormalities. Eyes: Anicteric sclera. Pupils are equally round and reactive to light. Extraocular movements are intact. Ears: External ears normal, canals clear. TMs dull. Lungs: Lungs clear to auscultation. No wheezing, rhonchi, rales. Heart: RRR without murmur, gallop, or rubs. No ectopy. Extremities: No deformities, edema, skin discoloration, clubbing or cyanosis. Good capillary refill. Peripheral Pulses: Normal, Capillary refill <2secs, strong peripheral pulses, Pulses palpable. Neurologic: Gait normal. Sensation grossly intact.. ECG: Bradycardia ASSESSMENT/PLAN: 1. Dizziness - ICD9: 780.4, ICD10: R42 (primary diagnosis) - Labs Normal - May need further cardiac work up and reestablish care with cardiology. - ECG today showed bradycardia. - Instructed to complete echocardiogram and get ultrasound of carotid arteries. - Stay well-hydrated, be mindful with position changes. - Red flag symptoms go to ER. - CONSULT TO CARDIOLOGY - ECG COMPLETE - ECHO - PERFLUTREN LIPID MICROSPHERES 1.1 MG/ML INJECTION IN NS 10 ML - SODIUM CHLORIDE 0.9 % (FLUSH) INJECTION SYRINGE - US CAROTID ARTERIES [facility] 2. Bradycardia - ICD9: 427.89, ICD10: R00.1 - Same plan as #1. 3. Ear pressure, right - ICD9: 388.8, ICD10: H93.8X1 - Recommend using Flonase 1-2 times per day. Follow up pending test results. Discussed treatment plan and patient voices understanding. Patient's questions answered appropriately. Medications and potential side effects were discussed and patient voices understanding. Ban Omer APRN.DATABASES COMPUTER CONSULTANT This note was partially generated using [employer] voice recognition system. Note was reviewed for accuracy. There may be minor misspellings or grammar miscues with [employer] voice recognition. documented in this encounter [facility] 02-26-2023 History of Present illness Narrative POPULATION HEALTH NAVIGATION OUTREACH Action/FYI PCP appointment needed: YES, 6 month Follow Up around 04/07/2023 HCC Gaps: I73.9 - (Reprompt) Small vessel disease (HCC) - [id number] Last Billed 06/17/2021
E46 - (Reprompt) Protein-calorie malnutrition, unspecified severity (HCC)
F32.0 - (Reprompt) Major depressive disorder, single episode, mild (HCC) - [id number] Last Billed 08/16/2020
Care Gaps to Address: Flu Vaccine Needed Outcomes: Spoke to patient who declined coming in for a 6 month follow up. Patient Identified by Name and : YES, via phone Outreach Outcome/Action Spoke to patient / parent / legal guardian: Patient declined Did you use a PCP flex slot to schedule this appointment? N/A Reason for Outreach HCC or suspected condition Payer: Payor: [employer] MEDICARE / Plan: [employer] MEDICARE PPO / Product Type: PPO / Care Gap Reviewed:: Follow-up appointment Flu Vaccine Reminder: Reminder note to check Health Maintenance for items below Health Maintenance items due: Hepatitis C Screening Never done Pneumococcal Vaccine: 65+(2 - PCV) due on 12/30/2014 Covid-19 Vaccine(3 - Pfizer series) due on 03/29/2021 DTaP,Tdap,Td Vaccine(2 - Td or Tdap) due on 12/03/2021 Advance Directive Discussion Never done Influenza Vaccine(1) due on 02/13/2023 Navigation Signature: Rhianna Calzada MA February 26, 2023 9:26 AM documented in this encounter [facility] 02-13-2023 History of Present illness Narrative POPULATION HEALTH NAVIGATION OUTREACH Action/FYI 02/13/23 Discuss the following [facility] care gaps: ~Medicare Wellness Exam ~Flu vaccine Outcome: ~Left message on voice mail and sent Clarivoyhart message. Patient Identified by Name and : NO Outreach Outcome/Action Unable to reach patient: Left message MyChart message sent Did you use a PCP flex slot to schedule this appointment? N/A Reason for Outreach Care Gap or Scheduling/Wellness visits Payer: Payor: [employer] MEDICARE / Plan: A[employer] MEDICARE PPO / Product Type: PPO / Care Gap Reviewed:: Annual Wellness visit Flu Vaccine Reminder: Reminder note to check Health Maintenance for items below Health Maintenance items due: HEPATITIS C SCREENING Never done PNEUMOCOCCAL: 65+(2 - PCV) due on 12/30/2014 COVID-19 VACCINE(3 - Pfizer series) due on 03/29/2021 DTAP,TDAP,TD(2 - Td or Tdap) due on 12/03/2021 ADVANCE DIRECTIVE DISCUSSION Never done INFLUENZA(1) due on 02/13/2023 Navigation Signature: Mayra Barrera Population Health Navigator February 13, 2023 4:22 PM documented in this encounter [facility] 10-31-2022 History of Present illness Narrative Radiology Service Progress Note PATIENT NAME: Jennifer Barboza DATE OF SERVICE: October 31, 2022 TIME: 12:10 PM PATIENT IDENTITY VERIFICATION COMPLETED USING TWO (2) IDENTIFIERS: Name and Date of confirmed by patient verbally. FALL SCREENING: Has the patient had 2 falls in the last year or 1 fall with injury or currently using an Ambulatory Assistive Device (Walker, Cane, Wheelchair, Crutches, etc.)? No PATIENT GENDER DATA: Female. status: : No status: NO. PATIENT RELEVANT IMPLANT DATA REVIEWED: Yes RADIOLOGY DEPARTMENT: MR; Exam(s) Completed: Head: Routine Brain PERIPHERAL IV DATA: Not applicable SIGNED BY: RT Odilon(R) October 31, 2022 12:10 PM documented in this encounter [facility] 10-13-2022 Miscellaneous Notes Pt notified and voiced understanding. Stacie Jaimes Ma Yes, it is fine to do both; get the MRI and have cataract surgery Hubert Forrest MD Patient calls and states that she has MRI of brain scheduled on 10/31/2022. Patient is also supposed to have cataract surgery at end of November. Patient calling and making sure that she would be ok to do both MRI and Cataract Surgery. Patient had already talked to eye doctor and he told her that it would be ok but she wanted to check with PCP as well. Please review and advise, Anju Mackey RN documented in this encounter [facility] 10-09-2022 Miscellaneous Notes Pt notified and voiced understanding. Stacie Jaimes Ma Can you please call the patient and let her know that I reviewed her lab results Labs were all relatively normal, at this time I do not see any causes for her current symptoms. I would keep upcoming appointment for MRI for further evaluation. Any worsening symptoms please go to ER. Please let me know if she has any questions. Thank you. Ban Omer APRN.ELSIE documented in this encounter [facility] 10-06-2022 History of Present illness Narrative Chief Complaint Patient presents with: Multiple Concerns HPI Jennifer Barboza is a 72 year old female who presents here today for an acute visit. Last OV Jun 2021 with PCP. Pt here today with multiple complaints she would like to address. Pt concerns today have been ongoing for the past year, but is now constant. Pt c/o of R hand tremor, dizziness, pressure behind her ears, never feeling settled and some forgetfulness. GERD/GI: Sx controlled has used Prilosec 20 mg in the past, but no issue since. Was advised by Dr. Hoover to avoid eating before bed and certain foods. Denies any upset stomach or dysphagia. Continues to not have an appetite, this has been an ongoing issue. Weight last OV was 134 lbs. States that she does eat even if she doesn't want too. Dizziness/Vertigo - Ongoing for the past year. States that the dizziness tends to come on with exerting such as standing from sitting, bending over and standing up or when walking up steps. Her depth perception is also off. She's concerned about possibly falling and breaking something and doesn't want this to occur. Hx of vertigo, tries to avoid lying on her right side. Has to turn head slowly to avoid a flare up. Sometimes TV will trigger vertigo episodes. Still driving, but very careful. Not able to do what she used too. Notes rare occasional headache at the top of her head. The pain is sharp but then goes away. She's due for an eye exam, wears glasses. Denies any issues with cataracts in the past, but wondering if this is advancing. No blurred vision. She will have momentary loss of train of through, but will come back to her. Pt uses a cane, states that she's a walker, doesn't really use it to walk but generally has with her. Ears - Pt wears b/l hearing aids, has seen [facility], Dr. Hoover in the past. Hx of vertigo. At this time she is having pressure behind her ears. Tremor - Notes R hand tremor. Lipid: Taking Crestor 20 mg daily. Tolerating well, no myalgia or gi upset. Denies any chest pains or sob, but does report dizziness. Pt exercises twice a week. Depression/YASH: Stable on Zoloft 50 mg daily. No problems or side effects from medication. Released by Hem/Onc for endometrial cancer last year. Pt states she's been cancer free for 9 years, hx of Adenocarcinoma of endometrium stage 1. Follows with PRINCIPAL PRODUCT MANAGER Berna Lam for vaginal atrophy. Past medical history, appointments, medications, allergies reviewed. Previous Medical History PAST MEDICAL HISTORY Diagnosis Date Acute gastritis without mention of hemorrhage chronic CAD (coronary artery disease) Heart cath (06/2010) showed small vessel disease Depressive disorder, not elsewhere classified chronic depression Diverticulosis of colon (without mention of hemorrhage) 07/31/05 Endometrial cancer (HCC) partial cervix remains Generalized osteoarthrosis, unspecified site hands HTN (hypertension) Internal hemorrhoids without mention of complication 07/31/05 PMH - PAST MEDICAL HISTORY OF climacteric Snoring Unspecified constipation Previous Surgical History PAST SURGICAL HISTORY Procedure Laterality Date COLONOSCOPY FLX DX W/COLLJ SPEC WHEN PFRMD 07/31/05 Per repeat in COLONOSCOPY FLX DX W/COLLJ SPEC WHEN PFRMD 07/03/14 Colonoscopy ESOPHAGOGASTRODUODENOSCOPY TRANSORAL DIAGNOSTIC 08/11/2017 EGD LAPS TOTAL HYSTERECT 250 GM/< W/RMVL TUBE/OVARY 09/2012 part cervix remains/Laparoscopic hysterectomy, bilateral salpingo-oophorectomy, bilateral pelvic and right para-aortic lymphadenectomy, and cystoscopy. LIG/TRNSXJ FLP TUBE ABDL/VAG APPR UNI/BI Tubal ligation PAST SURGICAL HISTORY OF 11/2016 skin lesions that were benign TONSILLECTOMY PRIMARY/SECONDARY <AGE 12 Tonsillectomy Family History FAMILY HISTORY Problem Relation Age of Onset Alzheimer's Disease Mother Hypertension Mother Stroke Father Hypertension Father Diabetes Brother Arthritis Hypertension Brother other (carotid surgery) Brother Breast Cancer Maternal Aunt Arthritis Brother other (Multiple Myeloma) Brother Breast Cancer Paternal Aunt Diabetes Paternal Uncle x 4 Diabetes Paternal Aunt x1 Patient Allergies ALLERGIES Allergen Reactions Codeine Intolerance hallucinations Lipitor [Atorvastat* Other: See Comments Muscle cramps and joint pains Mucinex [Guaifenesi* Hives Amoxacillin [Amoxic* Rash Current Medications Current Outpatient Medications on File Prior to Visit Medication Sig rosuvastatin (CRESTOR) 20 mg tablet Take 1 tablet by mouth once daily. sertraline (ZOLOFT) 50 mg tablet Take 1 tablet by mouth once daily. BENEFIBER, WHEAT DEXTRIN, ORAL Take 1 teaspoonful by mouth every other day. omeprazole (PRILOSEC) 20 mg capsule Take 20 mg by mouth once daily. No current facility-administered medications on file prior to visit. Social History Social History Tobacco Use Smoking status: Former Packs/day: 0.50 Years: 5.00 Pack years: 2.50 Types: Cigarettes Quit date: 04/15/1968 Years since quittin.5 Smokeless tobacco: Never Vaping Use Vaping Use: Never used Substance Use Topics Alcohol use: Yes Comment: Ocassionally Drug use: No EXAM: BP 108/76 (BP Site: Left Arm, BP Position: Sitting, BP Cuff Size: Regular Adult) Pulse 62 Resp 16 Wt 53 kg (116 lb 12.8 oz) BMI 18.57 kg/m General Appearance: Well appearing, alert, in no acute distress, well-hydrated, well nourished and Thin. Ears: B/L hearing aids removed. B/L ears very normal on exam. Neck: Supple, no adenopathy; thyroid symmetric, normal size, no bruits. Lungs: Lungs clear to auscultation. No wheezing, rhonchi, rales.. Heart: RRR without murmur, gallop, or rubs. No ectopy. Abdomen: Normal abdominal exam, Abdomen soft, non-tender. Bowel sounds normal. No masses, organomegaly. Extremities: Arthritis noted in fingers. Minimal tremor noted in R hand. Neurologic: Oriented. Slow to get up and off/exam table. Health Maintenance List HEPATITIS C SCREENING Never done PNEUMOCOCCAL: 65+(2 - PCV) due on 12/30/2014 COVID-19 VACCINE(3 - Booster for Pfizer series) due on 03/29/2021 DTAP,TDAP,TD(2 - Td or Tdap) due on 12/03/2021 ADVANCE DIRECTIVE DISCUSSION Never done ANNUAL PCP TEAM CHRONIC DISEASE VISIT due on 06/17/2022 INFLUENZA(Season Ended) due on 02/13/2023 BP CONTROLLED (<130/80) due on 06/27/2023 MAMMOGRAM due on 07/29/2023 DIABETES SCREEN due on 06/17/2024 COLORECTAL CANCER SCREENING due on 07/03/2024 LIPID SCREEN due on 06/17/2026 SHINGRIX VACCINE Completed BONE DENSITY Addressed Data reviewed Epic ASSESSMENT/PLAN: 1. Weight loss - ICD9: 783.21, ICD10: R63.4 (primary diagnosis) - Check labs 2. Dizziness - ICD9: 780.4, ICD10: R42 - Check labs - MRI Brain 3. Balance disorder - ICD9: 781.99, ICD10: R26.89 - MRI Brain - check labs 4. Ear pressure, bilateral - ICD9: 388.8, ICD10: H93.8X3 - Stable on exam 5. Tremor of right hand - ICD9: 781.0, ICD10: R25.1 - MRI ordered 6. Depression, unspecified depression type - ICD9: 311, ICD10: F32.A - Stable - Continue current medication regimen. 7. Hyperlipidemia, mixed - ICD9: 272.2, ICD10: E78.2 - Continue current medication regimen. 8. Functional dyspepsia - ICD9: 536.8, ICD10: K30 - Stable without use of medication Will call with results; may consider Neuro eval if labs/MRI normal I agree with the Chief Complaint, ROS, and Past Histories independently gathered by the clinical patient support partner and the remaining scribed note accurately describes my personal service to the patient. Medical Decision Making: Problems: Moderate: New problem with uncertain prognosis Data: Unique test(s) ordered: 3+ Risk: Moderate: Drug management Medical Decision Making Level: 4 - Moderate Hubert Forrest MD The documentation for this note was completed by Kay Perera Ma acting as scribe for Hubert Forrest MD. October 06, 2022 6:09 PM. Kay Perera Ma documented in this encounter [facility] 10-06-2022 Instructions Kay Perera Ma - 10/06/2022 6:11 PM EDT Complete non-fasting labs. Lab hours are Thursday through Thursday 7:00 am to 5:00 pm. Thursday 7:30 am to 12:00 pm. Schedule MRI. Once we get the results we will call and notify you and will go from there. documented in this encounter [facility] 08-01-2022 Miscellaneous Notes Pt. informed all questions answered. Patient called requesting to speak with clinical. She is scheduled for a diag mamm and does not understand why. Please call patient and advise. documented in this encounter [facility] 07-31-2022 Miscellaneous Notes Diag mamm set up for 09/02 Milton Bernard APRN.DATABASES COMPUTER CONSULTANT Spoke with patient and informed of results and additional testing. Verbalized understanding. Sending to schedulers to help assist setting up future tests. Rin Perkins Please let the patient know that her mammogram does not have any masses or other concerning features. Radiology wants to get a better look at the right breast with additional imaging. Orders placed. Milton Bernard APRN.CNP documented in this encounter [facility] 07-29-2022 Miscellaneous Notes July 30, 2022 PID: [id number] Jennifer Barboza [address] [place] [id number] Dear Ms. Barboza, Your recent breast imaging exam on 07/29/2022 showed a possible finding that requires additional imaging studies for a complete evaluation. Most such findings are probably benign (not cancer). If you have a healthcare provider who ordered/prescribed your screening mammogram: Please call [phone] or [phone]: [phone] to schedule an appointment for your additional imaging (if you have not already done so). If you DO NOT have a healthcare provider (ie you did not have an order/prescription for your screening mammogram): Please call to schedule an appointment for your additional imaging (if you have not already done so). You must have an order/prescription from your physician when calling to schedule your appointment. If your order/prescription is not electronic, you must bring the hard copy with you on the day of your exam to avoid delays. Your imaging studies and reports are kept on file at [facility] as part of your permanent medical record, and are available for your continuing care. Thank you for allowing us to help in meeting your health care needs. Sincerely, Dr. Tejeda Interpreting Radiologist [facility] (Additional imaging) documented in this encounter [facility] 07-29-2022 History of Present illness Narrative Radiology Service Progress Note PATIENT NAME: Jennifer Barboza DATE OF SERVICE: July 29, 2022 TIME: 10:27 AM PATIENT IDENTITY VERIFICATION COMPLETED USING TWO (2) IDENTIFIERS: Name and Date of confirmed by patient verbally. FALL SCREENING: Has the patient had 2 falls in the last year or 1 fall with injury or currently using an Ambulatory Assistive Device (Walker, Cane, Wheelchair, Crutches, etc.)? No PATIENT GENDER DATA: Female. status: : No status: NO. PATIENT RELEVANT IMPLANT DATA REVIEWED: Not Applicable RADIOLOGY DEPARTMENT: Mammography PERIPHERAL IV DATA: Not applicable SIGNED BY: RT Ashutosh(R) July 29, 2022 10:27 AM documented in this encounter [facility] 06-27-2022 History of Present illness Narrative Jennifer Barboza is a 72 year old female who presents for follow up visit. She was seen in office on 05/28/22 for issues with vaginal irritation/atrophy. Used clobetasol vaginally and tapered off this week. No further concerns. Denies any current vaginal burning or irritation. Discussed if irritation returns she could try a vaginal estrogen cream. Patient stated will contact office if any further concerns. 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 History Comments: Sexual Activity: Not Currently; Male; ANITA Contraception: Tubal Ligation, Surgical PAST MEDICAL HISTORY Diagnosis Date Acute gastritis without mention of hemorrhage chronic CAD (coronary artery disease) Heart cath (06/2010) showed small vessel disease Depressive disorder, not elsewhere classified chronic depression Diverticulosis of colon (without mention of hemorrhage) 07/31/05 Endometrial cancer (HCC) partial cervix remains Generalized osteoarthrosis, unspecified site hands HTN (hypertension) Internal hemorrhoids without mention of complication 07/31/05 PMH - PAST MEDICAL HISTORY OF climacteric Snoring Unspecified constipation PAST SURGICAL HISTORY Procedure Laterality Date COLONOSCOPY FLX DX W/COLLJ SPEC WHEN PFRMD 07/31/05 Per repeat in COLONOSCOPY FLX DX W/COLLJ SPEC WHEN PFRMD 07/03/14 Colonoscopy ESOPHAGOGASTRODUODENOSCOPY TRANSORAL DIAGNOSTIC 08/11/2017 EGD LAPS TOTAL HYSTERECT 250 GM/< W/RMVL TUBE/OVARY 09/2012 part cervix remains/Laparoscopic hysterectomy, bilateral salpingo-oophorectomy, bilateral pelvic and right para-aortic lymphadenectomy, and cystoscopy. LIG/TRNSXJ FLP TUBE ABDL/VAG APPR UNI/BI Tubal ligation PAST SURGICAL HISTORY OF 11/2016 skin lesions that were benign TONSILLECTOMY PRIMARY/SECONDARY <AGE 12 Tonsillectomy FAMILY HISTORY Problem Relation Age of Onset Alzheimer's Disease Mother Hypertension Mother Stroke Father Hypertension Father Diabetes Brother Arthritis Hypertension Brother other (carotid surgery) Brother Breast Cancer Maternal Aunt Arthritis Brother other (Multiple Myeloma) Brother Breast Cancer Paternal Aunt Diabetes Paternal Uncle x 4 Diabetes Paternal Aunt x1 Social History Tobacco Use Smoking status: Former Packs/day: 0.50 Years: 5.00 Pack years: 2.50 Types: Cigarettes Quit date: 04/15/1968 Years since quittin.2 Smokeless tobacco: Never Vaping Use Vaping Use: Never used Substance Use Topics Alcohol use: Yes Comment: Ocassionally Drug use: No Current Outpatient Medications Medication Sig clobetasol (TEMOVATE) 0.05 % ointment Apply 1 application to affected area twice daily. rosuvastatin (CRESTOR) 20 mg tablet Take 1 tablet by mouth once daily. sertraline (ZOLOFT) 50 mg tablet Take 1 tablet by mouth once daily. BENEFIBER, WHEAT DEXTRIN, ORAL Take 1 teaspoonful by mouth every other day. omeprazole (PRILOSEC) 20 mg capsule Take 20 mg by mouth once daily. No current facility-administered medications for this visit. Allergies As of Date: 06/27/2022 Allergen Noted Reaction CODEINE 06/30/2005 Intolerance LIPITOR [ATORVASTATIN] 08/25/2012 Other: See Comments MUCINEX [GUAIFENESIN] 12/04/2011 Hives AMOXACILLIN [AMOXICILLIN] 10/16/2009 Rash Fully Assessed 06/27/2022 REVIEW OF SYSTEMS Abdomen: No bloating, early satiety, indigestion, or increased flatulence. No abdominal pain, nausea, vomiting, diarrhea, or constipation. Bladder: No dysuria, gross hematuria, urinary frequency, urinary urgency, or incontinence. Breast: No breast lumps, nipple d/c, overlying skin changes, redness or skin retraction. Expanded ROS: N/A Allergies and current medication updated:Yes EXAM: BP 126/70 Wt 119 lb 6.4 oz (54.2kg) GENERAL: pleasant, female in no apparent distress HEENT: Normocephalic and atraumatic NECK: Supple and full range of motion DERMATOLOGY: Normal and without lesions BREAST: deferred CHEST: Normal inspiratory effort ABDOMEN: Deferred PELVIC: deferred BIMANUAL: deferred NEURO: alert and oriented x3,exam grossly non-focal EXTREMITIES: normal ASSESSMENT/PLAN: 1. Vaginal atrophy - ICD9: 627.3, ICD10: N95.2 (primary diagnosis) - Declines vaginal estrogen cream at this time- will notify office if desires to start 2. Post-menopause - ICD9: V49.81, ICD10: Z78.0 RTO - as needed Brena Lam APRN.CNM documented in this encounter [facility] 05-05-2022 Miscellaneous Notes The following approved medication requests have been transmitted electronically. Requested Prescriptions Pending Prescriptions Disp Refills rosuvastatin (CRESTOR) 20 mg tablet 90 tablet 3 Sig: Take 1 tablet by mouth once daily. sertraline (ZOLOFT) 50 mg tablet 90 tablet 3 Sig: Take 1 tablet by mouth once daily. Milton Bernard APRN.CNP Patient has been identified by name and date of : Yes Last office visit in this department: 06/17/2021 Labs-03/11/22 NOV-none RX INSTRUCTIONS: Patient aware RX will be sent to pharmacy. No need to notify patient. Patient phones requesting refills as follows: Requested Prescriptions Pending Prescriptions Disp Refills rosuvastatin (CRESTOR) 20 mg tablet 90 tablet 3 Sig: Take 1 tablet by mouth once daily. sertraline (ZOLOFT) 50 mg tablet 90 tablet 3 Sig: Take 1 tablet by mouth once daily. Please review and advise. Mely Rosa documented in this encounter [facility] 03-13-2022 Miscellaneous Notes Patient notified. Heena Chaudhari LPN Component Latest Ref Rng & Units 03/01/2019 02/27/2020 03/04/2021 03/11/2022 CA 125 <39 U/mL 5 6 5 5 CA125 looks good. Leslye Sung APRN.ELSIE Patient calling for 03/11 lab results. documented in this encounter [facility] 06-20-2021 Miscellaneous Notes Patient notified of recommendations from PCP.Pt verbalizes understanding of instructions. Sivan Eugene LPN I would not expect 1-2 glasses of wine to cause that, but it would be reasonable to stop the wine for 1-2 weeks and see if it helps Hubert Forrest MD Pt called and notified of information below. Has been scheduled for a 2 mo f/u on 08/16/21. Pt wonders if drinking 1-2 glasses of wine per night can cause these issues? Denies this being a new issue has done this for the past couple of years. Okay to update tomorrow. Kay Perera Ma Her lab results all look good; glucose is 120, but this is OK for not fasting. Cholesterol slightly high at 212, but much better than before she was on Crestor. I do not see any explanation for her symptoms at this point. I would suggest that we continue to monitor her symptoms; follow up ow up in 2-3 months so I can se how she is doing. Hubert Forrest MD Pt is calling for results from labs done yesterday. Pt would like a copy mailed to her after dr reviews. Pt reports [facility] is not working. Component Latest Ref Rng & Units 06/17/2021 WBC 3.70 - 11.00 k/uL 7.46 RBC 3.90 - 5.20 m/uL 4.04 Hemoglobin 11.5 - 15.5 g/dL 13.2 Hematocrit 36.0 - 46.0 % 39.8 MCV 80.0 - 100.0 fL 98.5 MCH 26.0 - 34.0 pG 32.7 MCHC 30.5 - 36.0 g/dL 33.2 RDW-CV 11.5 - 15.0 % 12.3 Platelet Count 150 - 400 k/uL 313 MPV 9.0 - 12.7 fL 10.1 Neut% % 69.4 Abs Neut (ANC) 1.45 - 7.50 k/uL 5.16 Lymph% % 21.2 Abs Lymph 1.00 - 4.00 k/uL 1.58 [place]% % 6.2 Abs [place] <0.87 k/uL 0.46 Eosin% % 2.1 Abs Eosin <0.46 k/uL 0.16 Baso% % 1.1 Abs Baso <0.11 k/uL 0.08 Nucleated Reds 0 /100 WBC 0.0 Absolute nRBC <0.01 k/uL <0.01 Diff Type Auto Diff Protein, Total 6.3 - 8.0 g/dL 7.0 Albumin 3.9 - 4.9 g/dL 4.6 Calcium 8.5 - 10.2 mg/dL 9.7 Bilirubin, Total 0.2 - 1.3 mg/dL 0.5 Alkaline Phosphatase 34 - 123 U/L 79 AST 13 - 35 U/L 31 Glucose 74 - 99 mg/dL 120 (H) BUN 7 - 21 mg/dL 15 Creatinine 0.58 - 0.96 mg/dL 0.86 Sodium 136 - 144 mmol/L 141 Potassium 3.7 - 5.1 mmol/L 4.1 Chloride 97 - 105 mmol/L 105 CO2 22 - 30 mmol/L 25 Anion Gap 9 - 18 mmol/L 11 ALT 7 - 38 U/L 22 eGFR- >60 eGFR-All Other Races . >60 Cholesterol, Total <200 mg/dL 212 (H) Triglyceride <150 mg/dL 173 (H) HDL Cholesterol >39 mg/dL 53 LDL Cholesterol <100 mg/dL 124 (H) Non HDL Cholesterol <130 mg/dL 159 (H) Fasting Time hrs 12 VLDL Cholesterol <30 mg/dL 35 (H) TC:HDL Ratio <5.10 4.00 LDL:HDL Ratio <2.54 2.34 TSH 0.270 - 4.200 uU/mL 2.640 Penelope Ferguson LPN documented in this encounter [facility] 09-22-2020 History of Present illness Narrative Radiology Service Progress Note PATIENT NAME: Jennifer Barboza DATE OF SERVICE: September 22, 2020 TIME: 11:45 AM PATIENT IDENTITY VERIFICATION COMPLETED USING TWO (2) IDENTIFIERS: Name and Date of confirmed by patient verbally. FALL SCREENING: Has the patient had 2 falls in the last year or 1 fall with injury or currently using an Ambulatory Assistive Device (Walker, Cane, Wheelchair, Crutches, etc.)? No PATIENT GENDER DATA: Female. status: : No status: NO. PATIENT RELEVANT IMPLANT DATA REVIEWED: Not Applicable RADIOLOGY DEPARTMENT: General X-ray: Exam(s) Completed: Lower Extremity X-Ray(s): Foot, Right and Wt. Bearing: PERIPHERAL IV DATA: Not applicable SIGNED BY: Jamey Huber September 22, 2020 11:45 AM documented in this encounter [facility] 07-22-2013 History of Past i llness Narrative Problem Noted Date Resolved Date Viral warts, unspecified 07/22/2013 018 Xerosis cutis 07/22/2013 06/23/2017 PMB (postmenopausal bleeding) 08/17/2012 Irritated//Inflamed Seborrheic Keratosis 012 06/23/2017 Actinic skin damage 11/10/2011 06/23/2017 Other Seborrheic Keratoses 11/10/201106/23 Solar Lentigines 11/10/2011 06/23/2017 Melanocytic nevus of trunk: Intradermal Nevus of L mid back 11/10/2011 06/23/2017 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 Groin pain 06/17/2011 06/23/2017 Actinic Keratosis (Premalignant AK) 08/08/2009 06/17/2010 Seborrheic Keratosis 08/08/2009 06/17/2010 Melanocytic Nevus: Intradermal of Trunk: back 06/17/2010 Solar lentigo 08/08/2009 06/17/2010 Actinic Damage///Sun-Damaged Skin 08/08/2009 06/17/2010 Surgical Scar Fibrosis of Skin: L cheek by nose 08/08/2009 06/17/2010 History of BCC Skin Cancer: L cheek face: 11/199808/08/2009 06/17/2010 Acute gastritis without mention of hemorrhage 01/07/2007 documented as of this encounter (statuses as of 03/13/2022) [facility] History of Past illness Narrative* Problem Noted Date Resolved Date Viral warts, unspecified 07/22/2013 018 Xerosis cutis 07/22/2013 06/23/2017 PMB (postmenopausal bleeding) 08/17/2012 Irritated//Inflamed Seborrheic Keratosis 012 06/23/2017 Actinic skin damage 11/10/2011 06/23/2017 Other Seborrheic Keratoses 11/10/201106/23 Solar Lentigines 11/10/2011 06/23/2017 Melanocytic nevus of trunk: Intradermal Nevus of L mid back 11/10/2011 06/23/2017 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 Groin pain 06/17/2011 06/23/2017 Actinic Keratosis (Premalignant AK) 08/08/2009 06/17/2010 Seborrheic Keratosis 08/08/2009 06/17/2010 Melanocytic Nevus: Intradermal of Trunk: back 06/17/2010 Solar lentigo 08/08/2009 06/17/2010 Actinic Damage///Sun-Damaged Skin 08/08/2009 06/17/2010 Surgical Scar Fibrosis of Skin: L cheek by nose 08/08/2009 06/17/2010 History of BCC Skin Cancer: L cheek face: 11/199808/08/2009 06/17/2010 Acute gastritis without mention of hemorrhage 01/07/2007 documented as of this encounter (statuses as of 05/05/2022) [facility] History of Past illness Narrative* Problem Noted Date Resolved Date Viral warts, unspecified 07/22/2013 018 Xerosis cutis 07/22/2013 06/23/2017 PMB (postmenopausal bleeding) 08/17/2012 Irritated//Inflamed Seborrheic Keratosis 012 06/23/2017 Actinic skin damage 11/10/2011 06/23/2017 Other Seborrheic Keratoses 11/10/201106/23 Solar Lentigines 11/10/2011 06/23/2017 Melanocytic nevus of trunk: Intradermal Nevus of L mid back 11/10/2011 06/23/2017 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 Groin pain 06/17/2011 06/23/2017 Actinic Keratosis (Premalignant AK) 08/08/2009 06/17/2010 Seborrheic Keratosis 08/08/2009 06/17/2010 Melanocytic Nevus: Intradermal of Trunk: back 06/17/2010 Solar lentigo 08/08/2009 06/17/2010 Actinic Damage///Sun-Damaged Skin 08/08/2009 06/17/2010 Surgical Scar Fibrosis of Skin: L cheek by nose 08/08/2009 06/17/2010 History of BCC Skin Cancer: L cheek face: 11/199808/08/2009 06/17/2010 Acute gastritis without mention of hemorrhage 01/07/2007 documented as of this encounter (statuses as of 06/03/2022) [facility] History of Past illness Narrative* Problem Noted Date Resolved Date Viral warts, unspecified 07/22/2013 018 Xerosis cutis 07/22/2013 06/23/2017 PMB (postmenopausal bleeding) 08/17/2012 Irritated//Inflamed Seborrheic Keratosis 012 06/23/2017 Actinic skin damage 11/10/2011 06/23/2017 Other Seborrheic Keratoses 11/10/201106/23 Solar Lentigines 11/10/2011 06/23/2017 Melanocytic nevus of trunk: Intradermal Nevus of L mid back 11/10/2011 06/23/2017 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 Groin pain 06/17/2011 06/23/2017 Actinic Keratosis (Premalignant AK) 08/08/2009 06/17/2010 Seborrheic Keratosis 08/08/2009 06/17/2010 Melanocytic Nevus: Intradermal of Trunk: back 06/17/2010 Solar lentigo 08/08/2009 06/17/2010 Actinic Damage///Sun-Damaged Skin 08/08/2009 06/17/2010 Surgical Scar Fibrosis of Skin: L cheek by nose 08/08/2009 06/17/2010 History of BCC Skin Cancer: L cheek face: 11/199808/08/2009 06/17/2010 Acute gastritis without mention of hemorrhage 01/07/2007 documented as of this encounter (statuses as of 06/27/2022) [facility] History of Past illness Narrative* Problem Noted Date Resolved Date Viral warts, unspecified 07/22/2013 018 Xerosis cutis 07/22/2013 06/23/2017 PMB (postmenopausal bleeding) 08/17/2012 Irritated//Inflamed Seborrheic Keratosis 012 06/23/2017 Actinic skin damage 11/10/2011 06/23/2017 Other Seborrheic Keratoses 11/10/201106/23 Solar Lentigines 11/10/2011 06/23/2017 Melanocytic nevus of trunk: Intradermal Nevus of L mid back 11/10/2011 06/23/2017 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 Groin pain 06/17/2011 06/23/2017 Actinic Keratosis (Premalignant AK) 08/08/2009 06/17/2010 Seborrheic Keratosis 08/08/2009 06/17/2010 Melanocytic Nevus: Intradermal of Trunk: back 06/17/2010 Solar lentigo 08/08/2009 06/17/2010 Actinic Damage///Sun-Damaged Skin 08/08/2009 06/17/2010 Surgical Scar Fibrosis of Skin: L cheek by nose 08/08/2009 06/17/2010 History of BCC Skin Cancer: L cheek face: 11/199808/08/2009 06/17/2010 Acute gastritis without mention of hemorrhage 01/07/2007 documented as of this encounter (statuses as of 07/31/2022) [facility] History of Past illness Narrative* Problem Noted Date Resolved Date Viral warts, unspecified 07/22/2013 018 Xerosis cutis 07/22/2013 06/23/2017 PMB (postmenopausal bleeding) 08/17/2012 Irritated//Inflamed Seborrheic Keratosis 012 06/23/2017 Actinic skin damage 11/10/2011 06/23/2017 Other Seborrheic Keratoses 11/10/201106/23 Solar Lentigines 11/10/2011 06/23/2017 Melanocytic nevus of trunk: Intradermal Nevus of L mid back 11/10/2011 06/23/2017 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 Groin pain 06/17/2011 06/23/2017 Actinic Keratosis (Premalignant AK) 08/08/2009 06/17/2010 Seborrheic Keratosis 08/08/2009 06/17/2010 Melanocytic Nevus: Intradermal of Trunk: back 06/17/2010 Solar lentigo 08/08/2009 06/17/2010 Actinic Damage///Sun-Damaged Skin 08/08/2009 06/17/2010 Surgical Scar Fibrosis of Skin: L cheek by nose 08/08/2009 06/17/2010 History of BCC Skin Cancer: L cheek face: 11/199808/08/2009 06/17/2010 Acute gastritis without mention of hemorrhage 01/07/2007 documented as of this encounter (statuses as of 07/31/2022) [facility] History of Past illness Narrative* Problem Noted Date Resolved Date Viral warts, unspecified 07/22/2013 018 Xerosis cutis 07/22/2013 06/23/2017 PMB (postmenopausal bleeding) 08/17/2012 Irritated//Inflamed Seborrheic Keratosis 012 06/23/2017 Actinic skin damage 11/10/2011 06/23/2017 Other Seborrheic Keratoses 11/10/201106/23 Solar Lentigines 11/10/2011 06/23/2017 Melanocytic nevus of trunk: Intradermal Nevus of L mid back 11/10/2011 06/23/2017 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 Groin pain 06/17/2011 06/23/2017 Actinic Keratosis (Premalignant AK) 08/08/2009 06/17/2010 Seborrheic Keratosis 08/08/2009 06/17/2010 Melanocytic Nevus: Intradermal of Trunk: back 06/17/2010 Solar lentigo 08/08/2009 06/17/2010 Actinic Damage///Sun-Damaged Skin 08/08/2009 06/17/2010 Surgical Scar Fibrosis of Skin: L cheek by nose 08/08/2009 06/17/2010 History of BCC Skin Cancer: L cheek face: 11/199808/08/2009 06/17/2010 Acute gastritis without mention of hemorrhage 01/07/2007 documented as of this encounter (statuses as of 08/01/2022) [facility] History of Past illness Narrative* Problem Noted Date Resolved Date Viral warts, unspecified 07/22/2013 018 Xerosis cutis 07/22/2013 06/23/2017 PMB (postmenopausal bleeding) 08/17/2012 Irritated//Inflamed Seborrheic Keratosis 012 06/23/2017 Actinic skin damage 11/10/2011 06/23/2017 Other Seborrheic Keratoses 11/10/201106/23 Solar Lentigines 11/10/2011 06/23/2017 Melanocytic nevus of trunk: Intradermal Nevus of L mid back 11/10/2011 06/23/2017 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 Groin pain 06/17/2011 06/23/2017 Actinic Keratosis (Premalignant AK) 08/08/2009 06/17/2010 Seborrheic Keratosis 08/08/2009 06/17/2010 Melanocytic Nevus: Intradermal of Trunk: back 06/17/2010 Solar lentigo 08/08/2009 06/17/2010 Actinic Damage///Sun-Damaged Skin 08/08/2009 06/17/2010 Surgical Scar Fibrosis of Skin: L cheek by nose 08/08/2009 06/17/2010 History of BCC Skin Cancer: L cheek face: 11/199808/08/2009 06/17/2010 Acute gastritis without mention of hemorrhage 01/07/2007 documented as of this encounter (statuses as of 10/07/2022) [facility] History of Past illness Narrative* Problem Noted Date Resolved Date Viral warts, unspecified 07/22/2013 018 Xerosis cutis 07/22/2013 06/23/2017 PMB (postmenopausal bleeding) 08/17/2012 Irritated//Inflamed Seborrheic Keratosis 012 06/23/2017 Actinic skin damage 11/10/2011 06/23/2017 Other Seborrheic Keratoses 11/10/201106/23 Solar Lentigines 11/10/2011 06/23/2017 Melanocytic nevus of trunk: Intradermal Nevus of L mid back 11/10/2011 06/23/2017 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 Groin pain 06/17/2011 06/23/2017 Actinic Keratosis (Premalignant AK) 08/08/2009 06/17/2010 Seborrheic Keratosis 08/08/2009 06/17/2010 Melanocytic Nevus: Intradermal of Trunk: back 06/17/2010 Solar lentigo 08/08/2009 06/17/2010 Actinic Damage///Sun-Damaged Skin 08/08/2009 06/17/2010 Surgical Scar Fibrosis of Skin: L cheek by nose 08/08/2009 06/17/2010 History of BCC Skin Cancer: L cheek face: 11/199808/08/2009 06/17/2010 Acute gastritis without mention of hemorrhage 01/07/2007 documented as of this encounter (statuses as of 10/09/2022) [facility] History of Past illness Narrative* Problem Noted Date Resolved Date Viral warts, unspecified 07/22/2013 018 Xerosis cutis 07/22/2013 06/23/2017 PMB (postmenopausal bleeding) 08/17/2012 Irritated//Inflamed Seborrheic Keratosis 012 06/23/2017 Actinic skin damage 11/10/2011 06/23/2017 Other Seborrheic Keratoses 11/10/201106/23 Solar Lentigines 11/10/2011 06/23/2017 Melanocytic nevus of trunk: Intradermal Nevus of L mid back 11/10/2011 06/23/2017 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 Groin pain 06/17/2011 06/23/2017 Actinic Keratosis (Premalignant AK) 08/08/2009 06/17/2010 Seborrheic Keratosis 08/08/2009 06/17/2010 Melanocytic Nevus: Intradermal of Trunk: back 06/17/2010 Solar lentigo 08/08/2009 06/17/2010 Actinic Damage///Sun-Damaged Skin 08/08/2009 06/17/2010 Surgical Scar Fibrosis of Skin: L cheek by nose 08/08/2009 06/17/2010 History of BCC Skin Cancer: L cheek face: 11/199808/08/2009 06/17/2010 Acute gastritis without mention of hemorrhage 01/07/2007 documented as of this encounter (statuses as of 10/14/2022) [facility] History of Past illness Narrative* Problem Noted Date Diagnosed Date Resolved Date Viral warts, unspecified 07/22/201302/2018 Xerosis cutis 07/22/2013 06/23/2017 PMB (postmenopausal bleeding) 08/17/2012 04/16/2016 Irritated//Inflamed Seborrheic Keratosis 11/10/2011 06/23/2017 Actinic skin damage 11/10/2011 06/23/19 18 Other Seborrheic Keratoses 11/10/2011 0 06/23/2017 Solar Lentigines 11/10/2011 06/23/2017 Melanocytic nevus of trunk: Intradermal Nevus of L mid back 11/10/2011 06/23/2017 Idiopathic guttate hypomelanosis (IGH) 11/10/2011 06/23/2017 Groin pain 06/17/2011 06/23/2017 Actinic Keratosis (Premalignant AK) 08/08/2009 06/17/2010 Seborrheic Keratosis 08/08/2009 011 Melanocytic Nevus: Intradermal of Trunk: back 08/08/19 10 06/17/2010 Solar lentigo 08/08/2009 06/17/2010 Actinic Damage///Sun-Damaged Skin 08/08/2009 06/17/2010 Surgical Scar Fibrosis of Sk in: L cheek by nose 08/08/2009 06/17/2010 History of BCC Skin Cancer: L cheek face: 11/199808/08/2009 06/17/2010 Acute gastritis without mention of hemorrhage 01/07/2007 documented as of this encounter (statuses as of 02/14/2023) [facility] History of Past illness Narrative* Problem Noted Date Diagnosed Date Resolved Date Viral warts, unspecified 07/22/201302/2018 Xerosis cutis 07/22/2013 06/23/2017 PMB (postmenopausal bleeding) 08/17/2012 04/16/2016 Irritated//Inflamed Seborrheic Keratosis 11/10/2011 06/23/2017 Actinic skin damage 11/10/2011 06/23/19 18 Other Seborrheic Keratoses 11/10/2011 0 06/23/2017 Solar Lentigines 11/10/2011 06/23/2017 Melanocytic nevus of trunk: Intradermal Nevus of L mid back 11/10/2011 06/23/2017 Idiopathic guttate hypomelanosis (IGH) 11/10/2011 06/23/2017 Groin pain 06/17/2011 06/23/2017 Actinic Keratosis (Premalignant AK) 08/08/2009 06/17/2010 Seborrheic Keratosis 08/08/2009 011 Melanocytic Nevus: Intradermal of Trunk: back 08/08/19 10 06/17/2010 Solar lentigo 08/08/2009 06/17/2010 Actinic Damage///Sun-Damaged Skin 08/08/2009 06/17/2010 Surgical Scar Fibrosis of Sk in: L cheek by nose 08/08/2009 06/17/2010 History of BCC Skin Cancer: L cheek face: 11/199808/08/2009 06/17/2010 Acute gastritis without mention of hemorrhage 01/07/2007 documented as of this encounter (statuses as of 02/26/2023) [facility] History of Past illness Narrative* Problem Noted Date Diagnosed Date Resolved Date Viral warts, unspecified 07/22/201302/2018 Xerosis cutis 07/22/2013 06/23/2017 PMB (postmenopausal bleeding) 08/17/2012 04/16/2016 Irritated//Inflamed Seborrheic Keratosis 11/10/2011 06/23/2017 Actinic skin damage 11/10/2011 06/23/19 18 Other Seborrheic Keratoses 11/10/2011 0 06/23/2017 Solar Lentigines 11/10/2011 06/23/2017 Melanocytic nevus of trunk: Intradermal Nevus of L mid back 11/10/2011 06/23/2017 Idiopathic guttate hypomelanosis (IGH) 11/10/2011 06/23/2017 Groin pain 06/17/2011 06/23/2017 Actinic Keratosis (Premalignant AK) 08/08/2009 06/17/2010 Seborrheic Keratosis 08/08/2009 011 Melanocytic Nevus: Intradermal of Trunk: back 08/08/19 10 06/17/2010 Solar lentigo 08/08/2009 06/17/2010 Actinic Damage///Sun-Damaged Skin 08/08/2009 06/17/2010 Surgical Scar Fibrosis of Sk in: L cheek by nose 08/08/2009 06/17/2010 History of BCC Skin Cancer: L cheek face: 11/199808/08/2009 06/17/2010 Acute gastritis without mention of hemorrhage 01/07/2007 documented as of this encounter (statuses as of 04/01/2023) [facility] History of Past illness Narrative* Problem Noted Date Diagnosed Date Resolved Date Viral warts, unspecified 07/22/201302/2018 Xerosis cutis 07/22/2013 06/23/2017 PMB (postmenopausal bleeding) 08/17/2012 04/16/2016 Irritated//Inflamed Seborrheic Keratosis 11/10/2011 06/23/2017 Actinic skin damage 11/10/2011 06/23/19 18 Other Seborrheic Keratoses 11/10/2011 0 06/23/2017 Solar Lentigines 11/10/2011 06/23/2017 Melanocytic nevus of trunk: Intradermal Nevus of L mid back 11/10/2011 06/23/2017 Idiopathic guttate hypomelanosis (IGH) 11/10/2011 06/23/2017 Groin pain 06/17/2011 06/23/2017 Actinic Keratosis (Premalignant AK) 08/08/2009 06/17/2010 Seborrheic Keratosis 08/08/2009 011 Melanocytic Nevus: Intradermal of Trunk: back 08/08/19 10 06/17/2010 Solar lentigo 08/08/2009 06/17/2010 Actinic Damage///Sun-Damaged Skin 08/08/2009 06/17/2010 Surgical Scar Fibrosis of Sk in: L cheek by nose 08/08/2009 06/17/2010 History of BCC Skin Cancer: L cheek face: 11/199808/08/2009 06/17/2010 Acute gastritis without mention of hemorrhage 01/07/2007 documented as of this encounter (statuses as of 04/13/2023) [facility] History of Past illness Narrative* Problem Noted Date Diagnosed Date Resolved Date Viral warts, unspecified 07/22/201302/2018 Xerosis cutis 07/22/2013 06/23/2017 PMB (postmenopausal bleeding) 08/17/2012 04/16/2016 Irritated//Inflamed Seborrheic Keratosis 11/10/2011 06/23/2017 Actinic skin damage 11/10/2011 06/23/19 18 Other Seborrheic Keratoses 11/10/2011 0 06/23/2017 Solar Lentigines 11/10/2011 06/23/2017 Melanocytic nevus of trunk: Intradermal Nevus of L mid back 11/10/2011 06/23/2017 Idiopathic guttate hypomelanosis (IGH) 11/10/2011 06/23/2017 Groin pain 06/17/2011 06/23/2017 Actinic Keratosis (Premalignant AK) 08/08/2009 06/17/2010 Seborrheic Keratosis 08/08/2009 011 Melanocytic Nevus: Intradermal of Trunk: back 08/08/19 10 06/17/2010 Solar lentigo 08/08/2009 06/17/2010 Actinic Damage///Sun-Damaged Skin 08/08/2009 06/17/2010 Surgical Scar Fibrosis of Sk in: L cheek by nose 08/08/2009 06/17/2010 History of BCC Skin Cancer: L cheek face: 11/199808/08/2009 06/17/2010 Acute gastritis without mention of hemorrhage 01/07/2007 documented as of this encounter (statuses as of 04/19/2023) [facility] History of Past illness Narrative* Problem Noted Date Diagnosed Date Resolved Date Viral warts, unspecified 07/22/201302/2018 Xerosis cutis 07/22/2013 06/23/2017 PMB (postmenopausal bleeding) 08/17/2012 04/16/2016 Irritated//Inflamed Seborrheic Keratosis 11/10/2011 06/23/2017 Actinic skin damage 11/10/2011 06/23/19 18 Other Seborrheic Keratoses 11/10/2011 0 06/23/2017 Solar Lentigines 11/10/2011 06/23/2017 Melanocytic nevus of trunk: Intradermal Nevus of L mid back 11/10/2011 06/23/2017 Idiopathic guttate hypomelanosis (IGH) 11/10/2011 06/23/2017 Groin pain 06/17/2011 06/23/2017 Actinic Keratosis (Premalignant AK) 08/08/2009 06/17/2010 Seborrheic Keratosis 08/08/2009 011 Melanocytic Nevus: Intradermal of Trunk: back 08/08/19 10 06/17/2010 Solar lentigo 08/08/2009 06/17/2010 Actinic Damage///Sun-Damaged Skin 08/08/2009 06/17/2010 Surgical Scar Fibrosis of Sk in: L cheek by nose 08/08/2009 06/17/2010 History of BCC Skin Cancer: L cheek face: 11/199808/08/2009 06/17/2010 Acute gastritis without mention of hemorrhage 01/07/2007 documented as of this encounter (statuses as of 04/19/2023) [facility] History of Past illness Narrative* Problem Noted Date Diagnosed Date Resolved Date Viral warts, unspecified 07/22/201302/2018 Xerosis cutis 07/22/2013 06/23/2017 PMB (postmenopausal bleeding) 08/17/2012 04/16/2016 Irritated//Inflamed Seborrheic Keratosis 11/10/2011 06/23/2017 Actinic skin damage 11/10/2011 06/23/19 18 Other Seborrheic Keratoses 11/10/2011 0 06/23/2017 Solar Lentigines 11/10/2011 06/23/2017 Melanocytic nevus of trunk: Intradermal Nevus of L mid back 11/10/2011 06/23/2017 Idiopathic guttate hypomelanosis (IGH) 11/10/2011 06/23/2017 Groin pain 06/17/2011 06/23/2017 Actinic Keratosis (Premalignant AK) 08/08/2009 06/17/2010 Seborrheic Keratosis 08/08/2009 011 Melanocytic Nevus: Intradermal of Trunk: back 08/08/19 10 06/17/2010 Solar lentigo 08/08/2009 06/17/2010 Actinic Damage///Sun-Damaged Skin 08/08/2009 06/17/2010 Surgical Scar Fibrosis of Sk in: L cheek by nose 08/08/2009 06/17/2010 History of BCC Skin Cancer: L cheek face: 11/199808/08/2009 06/17/2010 Acute gastritis without mention of hemorrhage 01/07/2007 documented as of this encounter (statuses as of 04/19/2023) [facility] History of Past illness Narrative* Problem Noted Date Diagnosed Date Resolved Date Viral warts, unspecified 07/22/201302/2018 Xerosis cutis 07/22/2013 06/23/2017 PMB (postmenopausal bleeding) 08/17/2012 04/16/2016 Irritated//Inflamed Seborrheic Keratosis 11/10/2011 06/23/2017 Actinic skin damage 11/10/2011 06/23/19 18 Other Seborrheic Keratoses 11/10/2011 0 06/23/2017 Solar Lentigines 11/10/2011 06/23/2017 Melanocytic nevus of trunk: Intradermal Nevus of L mid back 11/10/2011 06/23/2017 Idiopathic guttate hypomelanosis (IGH) 11/10/2011 06/23/2017 Groin pain 06/17/2011 06/23/2017 Actinic Keratosis (Premalignant AK) 08/08/2009 06/17/2010 Seborrheic Keratosis 08/08/2009 011 Melanocytic Nevus: Intradermal of Trunk: back 08/08/19 10 06/17/2010 Solar lentigo 08/08/2009 06/17/2010 Actinic Damage///Sun-Damaged Skin 08/08/2009 06/17/2010 Surgical Scar Fibrosis of Sk in: L cheek by nose 08/08/2009 06/17/2010 History of BCC Skin Cancer: L cheek face: 11/199808/08/2009 06/17/2010 Acute gastritis without mention of hemorrhage 01/07/2007 documented as of this encounter (statuses as of 05/01/2023) [facility] History of Past illness Narrative* Problem Noted Date Diagnosed Date Resolved Date Viral warts, unspecified 07/22/201302/2018 Xerosis cutis 07/22/2013 06/23/2017 PMB (postmenopausal bleeding) 08/17/2012 04/16/2016 Irritated//Inflamed Seborrheic Keratosis 11/10/2011 06/23/2017 Actinic skin damage 11/10/2011 06/23/19 18 Other Seborrheic Keratoses 11/10/2011 0 06/23/2017 Solar Lentigines 11/10/2011 06/23/2017 Melanocytic nevus of trunk: Intradermal Nevus of L mid back 11/10/2011 06/23/2017 Idiopathic guttate hypomelanosis (IGH) 11/10/2011 06/23/2017 Groin pain 06/17/2011 06/23/2017 Actinic Keratosis (Premalignant AK) 08/08/2009 06/17/2010 Seborrheic Keratosis 08/08/2009 011 Melanocytic Nevus: Intradermal of Trunk: back 08/08/19 10 06/17/2010 Solar lentigo 08/08/2009 06/17/2010 Actinic Damage///Sun-Damaged Skin 08/08/2009 06/17/2010 Surgical Scar Fibrosis of Sk in: L cheek by nose 08/08/2009 06/17/2010 History of BCC Skin Cancer: L cheek face: 11/199808/08/2009 06/17/2010 Acute gastritis without mention of hemorrhage 01/07/2007 documented as of this encounter (statuses as of 05/04/2023) [facility] History of Past illness Narrative* Problem Noted Date Diagnosed Date Resolved Date Viral warts, unspecified 07/22/201302/2018 Xerosis cutis 07/22/2013 06/23/2017 PMB (postmenopausal bleeding) 08/17/2012 04/16/2016 Irritated//Inflamed Seborrheic Keratosis 11/10/2011 06/23/2017 Actinic skin damage 11/10/2011 06/23/19 18 Other Seborrheic Keratoses 11/10/2011 0 06/23/2017 Solar Lentigines 11/10/2011 06/23/2017 Melanocytic nevus of trunk: Intradermal Nevus of L mid back 11/10/2011 06/23/2017 Idiopathic guttate hypomelanosis (IGH) 11/10/2011 06/23/2017 Groin pain 06/17/2011 06/23/2017 Actinic Keratosis (Premalignant AK) 08/08/2009 06/17/2010 Seborrheic Keratosis 08/08/2009 011 Melanocytic Nevus: Intradermal of Trunk: back 08/08/19 10 06/17/2010 Solar lentigo 08/08/2009 06/17/2010 Actinic Damage///Sun-Damaged Skin 08/08/2009 06/17/2010 Surgical Scar Fibrosis of Sk in: L cheek by nose 08/08/2009 06/17/2010 History of BCC Skin Cancer: L cheek face: 11/199808/08/2009 06/17/2010 Acute gastritis without mention of hemorrhage 01/07/2007 documented as of this encounter (statuses as of 08/04/2023) [facility] Diagnosis Depression, unspecified depression type [facility] Diagnosis Vaginal atrophy- Primary Postmenopausal atrophic vaginitis Post-menopause Asymptomatic postmenopausal status (age-related) (natural) [facility] Diagnosis Abnormal mammogram- Primary Abnormal mammogram, unspecified [facility] Diagnosis Dizziness- Primary Dizziness and giddiness Weight loss Loss of weight Balance disorder Other symptoms involving nervous and musculoskeletal systems Ear pressure, bilateral Tremor of right hand Depression, unspecified depression type Hyperlipidemia, mixed Mixed hyperlipidemia Functional dyspepsia Dyspepsia and other specified disorders of function of stomach Protein-calorie malnutrition, unspecified severity (HCC) Major depressive disorder, single episode, mild (HCC) Major depressive disorder, single episode, mild Peripheral vascular disease, unspecified (HCC) Peripheral vascular disease, unspecified Malignant neoplasm of corpus uteri, except isthmus (HCC) Malignant neoplasm of corpus uteri, except isthmus Neutropenia, drug-induced (HCC) Drug induced neutropenia [facility] Diagnosis Dizziness- Primary Dizziness and giddiness Bradycardia Other specified cardiac dysrhythmias Ear pressure, right [facility] Diagnosis Weight loss Loss of weight Dizziness Dizziness and giddiness Balance disorder Other symptoms involving nervous and musculoskeletal systems Tremor of right hand [facility]* Diagnosis Abnormal mammogram Abnormal mammogram, unspecified [facility] Diagnosis Depression, unspecified depression type [facility]* Diagnosis Nail fungus- Primary Dermatophytosis of nail Pain around toenail, left foot Anxiety with depression [facility] Diagnosis Anxiety with depression- Primary Pain around toenail, left foot Cognitive changes Other signs and symptoms involving cognition [facility] Diagnosis Onychodystrophy- Primary Other specified disease of nail Nail fungus Dermatophytosis of nail Neuroma Other benign neoplasm of connective and other soft tissue of unspecified site [facility] this [facility] Diagnosis Neuroma Other benign neoplasm of connective and other soft tissue of unspecified site documented [facility] this encounter [facility]* Diagnosis Moderate dementia with anxiety, unspecified dementia type (HCC)- Primary Cognitive changes Other signs and symptoms involving cognition [facility] this [facility] Diagnosis Foot pain, right Pain in limb documented [facility] Diagnosis Cognitive changes- Primary Other signs and symptoms involving cognition Moderate dementia with anxiety, unspecified dementia type (HCC) documented [facility] this encounter [facility]* Diagnosis Moderate dementia with anxiety, unspecified dementia type (HCC)- Primary [facility] Diagnostic Procedure Only (Routine) - Authorized Specialty Diagnoses / Procedures Referred By Namita andino Referred To Contact [facility] Diagnoses Abnormal mammogram Procedures US BREAST LTD RT US BREAST UNI REAL TIME WITH IMAGE LIMITED Milton Bernard APRN.DATAB[employer]ES COMPUTER CONSULTANT [address] [place] [address] [facility] [address] [place] [address] Referral ID Status Reason Start Date Expiration Date Visits Requested Visits Authorized [id number] Authorized Auto-Generat ed Referral 07/29/2022 08/28/2023 1 1 * Diagnostic Procedure Only (Routine) - Authorized Specialty Diagnoses / Procedures Referred By Namita andino Referred To Contact [facility] Diagnoses Abnormal mammogram Procedures NEMESIO DIAGNOSTIC RT DIAGNOSTIC MAMMOGRAPHY COMPUTER-AIDED DETCJ UNI Milton Bernard APRN.CNP [address] [place] [address] [facility] [address] [place] [address] Referral ID Status Reason Start Date Expiration Date Visits Requested Visits Authorized [id number] Authorized Auto-Generat ed Referral 07/29/2022 08/28/2023 1 1 [facility] for referral (narrative)* Outpatient Procedure (Routine) - Authorized Specialty Diagnoses / Procedures Referred By Contac t Referred To Contact [facility] Diagnoses Dizziness Procedures US CAROTID ARTERIES [facility] DUPLEX SCAN EXTRACRANIAL ART COMPL BI STUDY Ban Omer APRN.DATABASES COMPUTER CONSULTANT [address] [place] [address] [address] Referral ID Status Reason Start Date Expiration Date Visits Requested Visits Authorized [id number] Authorized Auto-Generat ed Referral 3 03/31/2024 1 1 * Outpatient Procedure (Routine) - Authorized Specialty Diagnoses / Procedures Referred By Contac t Referred To Contact [facility] Diagnoses Dizziness Procedures ECHO ECHO TTHRC R-T 2D W/WOM-MODE COMPL SPEC&COLR D Ban Omer APRN.DATABASES COMPUTER CONSULTANT [address] [place] [address] [address] Referral ID Status Reason Start Date Expiration Date Visits Requested Visits Authorized [id number] Authorized Auto-Generat ed Referral 3 03/31/2024 1 1 * Outpatient Procedure (Routine) - Pending Review Specialty Diagnoses / Procedures Referred By Contac t Referred To Contact [facility] Diagnoses Dizziness Procedures ECG COMPLETE ECG ROUTINE ECG W/LEAST 12 LDS W/I&R Ban Omer APRN.DATABASES COMPUTER CONSULTANT [address] [place] [address] [address] Referral ID Status Reason Start Date Expiration Date Visits Requested Visits Authorized [id number] Pending Review Auto-Generat ed Referral 3 03/31/2024 1 1 * Consult, Test, Treat (Routine) - Pending Review Specialty Diagnoses / Procedures Referred By Contac t Referred To Contact Cardiology Diagnoses Dizziness Procedures CONSULT TO CARDIOLOGY OFFICE/OUTPATIENT NEW HIGH MDM 60-74 MINUTES Ban Omer APRN.CNP [address] [place] [address] Referral ID Status Reason Start Date Expiration Date Visits Requested Visits Authorized [id number] Pending Review PCP Requested Referral 3 03/31/2024 1 1 [facility] for referral (narrative)* Diagnostic Procedure Only (Routine) - Closed Specialty Diagnoses / Procedures Referred By Contac t Referred To Contact [facility] Diagnoses Neuroma Procedures XR FOOT GENERAL 3V AP/LAT/OBL LEFT RADEX FOOT COMPLETE MINIMUM 3 VIEWS Alisha Ta [address] [address] [place] [id number] Referral ID Status Reason Start Date Expiration Date V isits Requested Visits Authorized [id number] Closed Auto-Generate d Referral 01/07/2024 02/05/2025 1 1 [facility] for visit Narrative* Diagnostic Procedure Only (Routine) - Closed Specialty Diagnoses / Procedures Referred By Contac t Referred To Contact [facility] Diagnoses Visit for screening mammogram Procedures NEMESIO SCREENING SCREENING MAMMOGRAPHY BI 2-VIEW BREAST INC Hubert Joya MD [address] [place] [address] [facility] [address] [place] [address] Referral ID Status Reason Start Date Expiration Date V isits Requested Visits Authorized [id number] Closed Auto-Generate d Referral 07/04/2022 08/02/2023 1 1 [facility] for visit Narrative* Diagnostic Procedure Only (Routine) - Closed Specialty Diagnoses / Procedures Referred By Contac t Referred To Contact [facility] Diagnoses Abnormal mammogram Procedures NEMESIO DIAGNOSTIC RT DIAGNOSTIC MAMMOGRAPHY COMPUTER-AIDED DETCJ UNI Milton BernardNEGRO.DATABASES COMPUTER CONSULTANT [address] [place] [address] [facility] [address] [place] [address] Referral ID Status Reason Start Date Expiration Date V isits Requested Visits Authorized [id number] Closed Auto-Generate d Referral 07/29/2022 08/28/2023 1 1 [facility] for visit Narrative* Diagnostic Procedure Only (Routine) - Closed Specialty Diagnoses / Procedures Referred By Contac t Referred To Contact XR IMAGING Diagnoses Neuroma Procedures XR FOOT GENERAL 3V AP/LAT/OBL LEFT RADEX FOOT COMPLETE MINIMUM 3 VIEWS Alisha Ta [address] [place] [address] [place] [address] Referral ID Status Reason Start Date Expiration Date V isits Requested Visits Authorized [id number] Closed Auto-Generate d Referral 01/07/2024 02/05/2025 1 1 [facility] Summary Purpose Family History No Family History Records FoundNo Family History Records FoundNo Family History Records FoundNo Family History Records Found Advance Directives No Advanced Directives Records FoundDocuments on File Type Date Recorded 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 Expl 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 Advance Directive(s) 08/10/2017 2:23 PM Documents on File Type Date Recorded 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 Expl 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 Advance Directive(s) 08/10/2017 2:23 PM Reason for Referral Specialty Diagnoses / Procedures Referred By Contac t Referred To Contact [facility] IM[facility] Diagnoses Weight loss Dizziness Balance disorder Tremor of right hand Procedures MRI BRAIN WO IVCON MRI BRAIN BRAIN STEM W/O CONTRAST MATERIAL Hubert Forrest MD [address] [place] [address] Mr [facility] Referral ID Status Reason Start Date Expiration Date Visits Requested Visits Authorized [id number] Authorized Auto-Generat ed Referral 10/06/2022 11/05/2023 1 1 Specialty Diagnoses / Procedures Referred By Contac t Referred To Contact [facility] IMAG[facility] Diagnoses Weight loss Dizziness Balance disorder Tremor of right hand Procedures MRI BRAIN WO IVCON MRI BRAIN BRAIN STEM W/O CONTRAST MATERIAL Hubert Forrest MD [address] [place] [address] [place] [address] Referral ID Status Reason Start Date Expiration Date V isits Requested Visits Authorized [id number] Closed Auto-Generate d Referral 10/06/2022 11/05/2023 1 1 Specialty Diagnoses / Procedures Referred By Contac t Referred To Contact Podiatry Diagnoses Nail fungus Pain around toenail, left foot Procedures CONSULT TO PODIATRY OFFICE/OUTPATIENT NEW HIGH MDM 60 MINUTES Ban Omer APRN.DATABASES COMPUTER CONSULTANT [address] [place] [address] Referral ID Status Reason Start Date Expiration Date Visits Requested Visits Authorized [id number] Authorized PCP Requested Referral 10/22/2023 10/21/2024 1 1 Specialty Diagnoses / Procedures Referred By Contac t Referred To Contact Neurology Diagnoses Cognitive changes Procedures CONSULT TO NEUROLOGY OFFICE/OUTPATIENT NEW HIGH MDM 60 MINUTES Ban Omer, NEGRO.DATABASES COMPUTER CONSULTANT [address] [place] [address] Referral ID Status Reason Start Date Expiration Date Visits Requested Visits Authorized [id number] Authorized PCP Requested Referral 11/30/2023 11/29/2024 1 1 Additional Source Comments INFORMATION SOURCE (unrecogn ized section and content) DATE CREATED AUTHOR 12/08/2017 [facility] DATE CREATED AUTHOR AUTHOR'S ORGANIZ ATION 04/15/2018 [facility] DATE CREATED AUTHOR AUTHOR'S ORGANIZ ATION 06/04/2023 [facility] DATE CREATED AUTHOR AUTHOR'S ORGANIZ ATION 11/23/[address] [facility] Source Comments (unrecognize d section and content) In the event this informatio n is protected by the Federal Confidentiality of Alcohol and Drug Abuse Patient Records regulations: The Federal rules restrict any use of the information to criminally investigate or prosecute any alcohol or drug abuse patient.[facility] the event this information is protected by the Federal Confidentiality of Alcohol and Drug Abuse Patient Records regulations: The Federal rules restrict any use of the information to criminally investigate or prosecute any alcohol or drug abuse patient.[facility] the event this information is protected by the Federal Confidentiality of Alcohol and Drug Abuse Patient Records regulations: The Federal rules restrict any use of the information to criminally investigate or prosecute any alcohol or drug abuse patient.[facility] the event this information is protected by the Federal Confidentiality of Alcohol and Drug Abuse Patient Records regulations: The Federal rules restrict any use of the information to criminally investigate or prosecute any alcohol or drug abuse patient.[facility] the event this information is protected by the Federal Confidentiality of Alcohol and Drug Abuse Patient Records regulations: The Federal rules restrict any use of the information to criminally investigate or prosecute any alcohol or drug abuse patient.[facility] the event this information is protected by the Federal Confidentiality of Alcohol and Drug Abuse Patient Records regulations: The Federal rules restrict any use of the information to criminally investigate or prosecute any alcohol or drug abuse patient.[facility] the event this information is protected by the Federal Confidentiality of Alcohol and Drug Abuse Patient Records regulations: The Federal rules restrict any use of the information to criminally investigate or prosecute any alcohol or drug abuse patient.[facility] the event this information is protected by the Federal Confidentiality of Alcohol and Drug Abuse Patient Records regulations: The Federal rules restrict any use of the information to criminally investigate or prosecute any alcohol or drug abuse patient.[facility] the event this information is protected by the Federal Confidentiality of Alcohol and Drug Abuse Patient Records regulations: The Federal rules restrict any use of the information to criminally investigate or prosecute any alcohol or drug abuse patient.[facility] the event this information is protected by the Federal Confidentiality of Alcohol and Drug Abuse Patient Records regulations: The Federal rules restrict any use of the information to criminally investigate or prosecute any alcohol or drug abuse patient.[facility] the event this information is protected by the Federal Confidentiality of Alcohol and Drug Abuse Patient Records regulations: The Federal rules restrict any use of the information to criminally investigate or prosecute any alcohol or drug abuse patient.[facility] the event this information is protected by the Federal Confidentiality of Alcohol and Drug Abuse Patient Records regulations: The Federal rules restrict any use of the information to criminally investigate or prosecute any alcohol or drug abuse patient.[facility] the event this information is protected by the Federal Confidentiality of Alcohol and Drug Abuse Patient Records regulations: The Federal rules restrict any use of the information to criminally investigate or prosecute any alcohol or drug abuse patient.[facility] the event this information is protected by the Federal Confidentiality of Alcohol and Drug Abuse Patient Records regulations: The Federal rules restrict any use of the information to criminally investigate or prosecute any alcohol or drug abuse patient.[facility] the event this information is protected by the Federal Confidentiality of Alcohol and Drug Abuse Patient Records regulations: The Federal rules restrict any use of the information to criminally investigate or prosecute any alcohol or drug abuse patient.[facility] the event this information is protected by the Federal Confidentiality of Alcohol and Drug Abuse Patient Records regulations: The Federal rules restrict any use of the information to criminally investigate or prosecute any alcohol or drug abuse patient.[facility] the event this information is protected by the Federal Confidentiality of Alcohol and Drug Abuse Patient Records regulations: The Federal rules restrict any use of the information to criminally investigate or prosecute any alcohol or drug abuse patient.[facility] the event this information is protected by the Federal Confidentiality of Alcohol and Drug Abuse Patient Records regulations: The Federal rules restrict any use of the information to criminally investigate or prosecute any alcohol or drug abuse patient.[facility] the event this information is protected by the Federal Confidentiality of Alcohol and Drug Abuse Patient Records regulations: The Federal rules restrict any use of the information to criminally investigate or prosecute any alcohol or drug abuse patient.[facility] the event this information is protected by the Federal Confidentiality of Alcohol and Drug Abuse Patient Records regulations: The Federal rules restrict any use of the information to criminally investigate or prosecute any alcohol or drug abuse patient.[facility] the event this information is protected by the Federal Confidentiality of Alcohol and Drug Abuse Patient Records regulations: The Federal rules restrict any use of the information to criminally investigate or prosecute any alcohol or drug abuse patient.[facility] the event this information is protected by the Federal Confidentiality of Alcohol and Drug Abuse Patient Records regulations: The Federal rules restrict any use of the information to criminally investigate or prosecute any alcohol or drug abuse patient.[facility] the event this information is protected by the Federal Confidentiality of Alcohol and Drug Abuse Patient Records regulations: The Federal rules restrict any use of the information to criminally investigate or prosecute any alcohol or drug abuse patient.[facility] the event this information is protected by the Federal Confidentiality of Alcohol and Drug Abuse Patient Records regulations: The Federal rules restrict any use of the information to criminally investigate or prosecute any alcohol or drug abuse patient.[facility] the event this information is protected by the Federal Confidentiality of Alcohol and Drug Abuse Patient Records regulations: The Federal rules restrict any use of the information to criminally investigate or prosecute any alcohol or drug abuse patient.[facility] the event this information is protected by the Federal Confidentiality of Alcohol and Drug Abuse Patient Records regulations: The Federal rules restrict any use of the information to criminally investigate or prosecute any alcohol or drug abuse patient.[facility] the event this information is protected by the Federal Confidentiality of Alcohol and Drug Abuse Patient Records regulations: The Federal rules restrict any use of the information to criminally investigate or prosecute any alcohol or drug abuse patient.[facility] the event this information is protected by the Federal Confidentiality of Alcohol and Drug Abuse Patient Records regulations: The Federal rules restrict any use of the information to criminally investigate or prosecute any alcohol or drug abuse patient.[facility] the event this information is protected by the Federal Confidentiality of Alcohol and Drug Abuse Patient Records regulations: The Federal rules restrict any use of the information to criminally investigate or prosecute any alcohol or drug abuse patient.[facility] the event this information is protected by the Federal Confidentiality of Alcohol and Drug Abuse Patient Records regulations: The Federal rules restrict any use of the information to criminally investigate or prosecute any alcohol or drug abuse patient.[facility] the event this information is protected by the Federal Confidentiality of Alcohol and Drug Abuse Patient Records regulations: The Federal rules restrict any use of the information to criminally investigate or prosecute any alcohol or drug abuse patient.[facility] [place] the event this information is protected by the Federal Confidentiality of Alcohol and Drug Abuse Patient Records regulations: The Federal rules restrict any use of the information to criminally investigate or prosecute any alcohol or drug abuse patient.[facility] [place] the event this information is protected by the Federal Confidentiality of Alcohol and Drug Abuse Patient Records regulations: The Federal rules restrict any use of the information to criminally investigate or prosecute any alcohol or drug abuse patient.[facility] [place] the event this information is protected by the Federal Confidentiality of Alcohol and Drug Abuse Patient Records regulations: The Federal rules restrict any use of the information to criminally investigate or prosecute any alcohol or drug abuse patient.[facility] [place] Reason for Visit (unrecogniz ed section and content) Reason Comments Results Reason Comments Refill Request Reason Comments Follow Up Vaginal atrophy Reason Comments Results Reason Comments Patient Question Reason Comments Multiple Concerns Reason Comments Results Labs Reason Onset Date Comments Population Health Navigation Outreach 02/13/2023 [employer] care gaps Reason Onset Date Comments Population Health Navigation Outreach 02/26/2023 HCC High Reason Comments Acute Visit low BP, dizziness Specialty Diagnoses / Procedures Referred By Contac t Referred To Contact MR IMAGING Diagnoses Weight loss Dizziness Balance disorder Tremor of right hand Procedures MRI BRAIN WO IVCON MRI BRAIN BRAIN STEM W/O CONTRAST MATERIAL Hubert Forrest MD [address] [place] [address] [place] [id number] Referral ID Status Reason Start Date Expiration Date V isits Requested Visits Authorized [id number] Closed Auto-Generate d Referral 10/06/2022 11/05/2023 1 1 Reason Onset Date Comments Population Health Navigation Outreach 08/04/2023 HCC Medicare Project Reason Comments Derm Problem Big toe discoloratio n, bilaterally, darkened skin and redness in the left x 6 months, no discharge but was bleeding on the left toe a few months ago Anxiety Patient and daughter states this has been worsening over the last year, worrying and anxious to leave the house Reason Comments Follow Up 4 week med follow up Reason Onset Date Comments Population Health Navigation Outreach 12/28/2023 [employer] AWV/HCC and care gaps Reason Comments New Nail Fungus Mass Pain Specialty Diagnoses / Procedures Referred By Namita t Referred To Contact Podiatry Diagnoses Nail fungus Pain around toenail, left foot Procedures CONSULT TO PODIATRY OFFICE/OUTPATIENT NEW HIGH MDM 60 MINUTES Ban Omer, IMMIGRATION CONSULTANT.DATABASES COMPUTER CONSULTANT [address] [place] [address] Referral ID Status Reason Start Date Expiration Date V isits Requested Visits Authorized [id number] Closed PCP Requested Referral 10/22/2023 10/21/2024 1 1 Reason Onset Date Comments Population Health Navigation Outreach 02/17/2024 AetnaLatrice [place] Reason Comments New Patient Memory difficulty, f amily hx alz Specialty Diagnoses / Procedures Referred By Namita t Referred To Contact Neurology Diagnoses Cognitive changes Procedures CONSULT TO NEUROLOGY OFFICE/OUTPATIENT NEW HIGH MDM 60 MINUTES Ban Omer, IMMIGRATION CONSULTANT.DATABASES COMPUTER CONSULTANT [address] [place] [address] Referral ID Status Reason Start Date Expiration Date V isits Requested Visits Authorized [id number] Closed PCP Requested Referral 11/30/2023 11/29/2024 1 1 Reason Comments Radiology XR Reason Comments New Patient dementia Reason Onset Date Comments Population Health Navigation Outreach 07/08/2024 [employer] Latrice Yadav PCSA Reason Onset Date Comments Population Health Navigation Outreach 08/05/2024 [employer] High Risk Attempt 1 Reason Comments Established Patient C/o not being to cur e issues, daughter feels it helps a little, no decline since medication Reason Onset Date Comments Population Health Navigation Outreach [facility]/22[facility]20[facility] (unrecognized sec tion and content) Compensation And Benefits Manager Relationship Specialty Start Date End Date Hubert Forrest MD [address] [facility] [place] [address] PCP - General 05/22/09 Compensation And Benefits Manager Relationship Specialty [place] [address] [place] [address] [place] [address] PCP - General 05/22/09 Compensation And Benefits Manager Relationship Specialty [place] [address] [place] [address] [place] [address] PCP - General 05/22/09 Compensation And Benefits Manager Relationship Specialty [place] [address] [place] [address] [place] [address] PCP - General 05/22/09 Compensation And Benefits Manager Relationship Specialty Start Date End Date Hubert Forrest MD [address] [facility] [place] [address] PCP - General 05/22/09 Compensation And Benefits Manager Relationship Specialty Start Date End Date Hubert Forrest MD [address] [place] [address] PCP - General 05/22/09 Compensation And Benefits Manager Relationship Specialty Start Date End Date Hubert Forrest MD [address] [facility] [place] [address] PCP - General 05/22/09 Compensation And Benefits Manager Relationship Specialty [place] [address] [place] [address] [place] [address] PCP - General 05/22/09 Compensation And Benefits Manager Relationship Specialty Start Date End Date Hubert Forrest MD [address] [place] [address] PCP - General 05/22/09 Compensation And Benefits Manager Relationship Specialty Start Date End Date Hubert Forrest MD [address] [place] [address] PCP - General 05/22/09 Compensation And Benefits Manager Relationship Specialty Start Date End Date Hubert Forrest MD [address] [place] [address] PCP - General 05/22/09 Compensation And Benefits Manager Relationship Specialty Start Date End Date Hubert Forrest MD [address] [place] [address] PCP - General 05/22/09 Compensation And Benefits Manager Relationship Specialty Start Date End Date Hubert Forrest MD [address] [place] [address] PCP - General 05/22/09 Compensation And Benefits Manager Relationship Specialty Start Date End Date Hubert Forrest MD [address] [place] [address] PCP - General 05/22/09 Compensation And Benefits Manager Relationship Specialty Start Date End Date Hubert Forrest MD [address] [place] [address] PCP - General 05/22/09 Compensation And Benefits Manager Relationship Specialty Start Date End Date Hubert Forrest MD [address] [place] [address] PCP - General 05/22/09 Compensation And Benefits Manager Relationship Specialty Start Date End Date Hubert Forrest MD [address] [place] [address] PCP - General 05/22/09 Compensation And Benefits Manager Relationship Specialty Start Date End Date Hubert Forrest MD [address] [place] [address] PCP - General 05/22/09 Compensation And Benefits Manager Relationship Specialty Start Date End Date Hubert Forrest MD [address] [place] [address] PCP - General 05/22/09 Compensation And Benefits Manager Relationship Specialty Start Date End Date Hubert Forrest MD [address] [place] [address] PCP - General 05/22/09 Compensation And Benefits Manager Relationship Specialty Start Date End Date Hubert Forrest MD [address] [place] [address] PCP - General 05/22/09 Compensation And Benefits Manager Relationship Specialty Start Date End Date Hubert Forrest MD [address] [place] [address] PCP - General 05/22/09 Compensation And Benefits Manager Relationship Specialty Start Date End Date Hubert Forrest MD [address] [place] [address] PCP - General 05/22/09 Compensation And Benefits Manager Relationship Specialty Start Date End Date Hubert Forrest MD [address] [place] [address] PCP - General 05/22/09 Compensation And Benefits Manager Relationship Specialty Start Date End Date Hubert Forrest MD [address] [place] [address] PCP - General 05/22/09 Compensation And Benefits Manager Relationship Specialty Start Date End Date Hubert Forrest MD [address] [place] [address] PCP - General 05/22/09 Compensation And Benefits Manager Relationship Specialty Start Date End Date Hubert Forrest MD [address] [place] [address] PCP - General 05/22/09 Ban Omer APRN.DATABASES COMPUTER CONSULTANT [address] [place] [address] [employer] Operator Family Medicine 05/22/24 Milton Bernard IMMIGRATION CONSULTANT.DATABASES COMPUTER CONSULTANT [address] [place] [address] [employer] Prospecting Operator Family Medicine 05/31/24 Compensation And Benefits Manager Relationship Specialty Start Date End Date Hubert Forrest MD [address] [place] [address] PCP - General 05/22/09 Ban Omer IMMIGRATION CONSULTANT.DATABASES COMPUTER CONSULTANT [address] [place] [address] [employer] Prospecting Operator Family Medicine 05/22/24 Milton Bernard APRN.DATABASES COMPUTER CONSULTANT [address] [place] [address] [employer]ing Operator Family Medicine 05/31/24 Compensation And Benefits Manager Relationship Specialty Start Date End Date Hubert Forrest MD [address] [place], [place] [address] PCP - General 05/22/09 Ban Omer APRN.DATABASES COMPUTER CONSULTANT [address] [place], [place] [address] [facility] 05/22/24 Milton Bernard APRN.DATABASES COMPUTER CONSULTANT [address] [place], [place] [address] [facility] 05/31/24 Compensation And Benefits Manager Relationship Specialty Start Date End Date Hubert Forrest MD [address] [place], [place] [id number] PCP - General 05/22/09 Milton Bernard, NEGRO.DATABASES COMPUTER CONSULTANT [address] [place], [place] [id number] [facility] 05/31/24 FOR RECORDS PERTAINING TO PATIENTS WHO ARE OR HAVE BEEN ENROLLED IN A CHEMICAL DEPENDENCY/SUBSTANCEABUSE PROGRAM, SOME INFORMATION MAY BE OMITTED. This clinical summary was aggregated from multiple sources. Caution should be exercised in using it in the provision of clinical care. This summary normalizes information from multiple sources, and as a consequence, information in this document may materially change the coding, format and clinical context of patient data. In addition, data may be omitted in some cases. CLINICAL DECISIONS SHOULD BE BASED ON THE PRIMARY CLINICAL RECORDS. [facility] [employer] [facility]. provides no warranty or guarantee of the accuracy or completeness of information in this document.
--- OUTSIDE RECORDS SUMMARY | 2024-12-27 21:21 | XMS RPT_ITS | CCD ---
Author Organization [facility] Care Team Providers Care Cattle Feeder Name Role Phone SHARI, TAB Unavailable Unavailable SHARI, TAB Unavailable Unavailable SHARI, TAB Unavailable Unavailable SHARI, TAB Unavailable Unavailable SHARI, TAB Unavailable Unavailable Hubert Forrest MD Primary Care Provider Hubert Forrest MD Primary Care Provider Hubert Forrest Referring Unavailable Hubert Forrest Primary Care Unavailable Reddy Sanchez Attending Unavailable Hubert Forrest MD Primary Care Provider Negra SYSTEMS LIBRARIAN.Ban ZIMMERMAN Unavailable Marco Antonio SYSTEMS LIBRARIAN.Milton ZIMMERMAN Unavailable ALISHA TA Referring Unavailable HUBERT [...] amoxicillin; Translations: [AMOXICILLIN] Drug Allergy 0 Rash [facility] Repository (20 sources) atorvastatin; Translations: [ATORVASTATIN] Drug Allergy 3 Other: See Comments [facility] Repository (20 sources) codeine; Translations: [CODEINE] Drug Allergy 6 Intolerance [facility] Repository (20 sources) guaiFENesin; Translations: [GUAIFENESIN] Drug Allergy 2 Hives [facility] Repository (1 source) atorvastatin Drug Allergy [address] [facility] Repository Medications Current Medications Medication Drug Class(es) [...] hydrochloride 10 mg oral tablet (10 sources) E-dehvvk-O-aspartat e Receptor Antagonist Start: 4 End: 5 [...] disease (1 source) Atherosclerotic heart disease of [place] coronary artery without angina pectoris; Translations: [Atherosclerotic heart disease of [place] coronary artery without angina pectoris] Onset: 06-03-2023 [...] Office Visit (NEMOWS ) ----- JENNIFER BARBOZA ([id number]) 1950 F Date Time Provider Department 09/21/24 1:30 PM HEENA LÓPEZ During your visit today, we recorded the following information about you: Pulse Blood pressure Weight 86/minute 102/74 54 kg Heena López PA-C 09/21/2024 2:32 PM Signed [facility] Name: Jennifer Barboza [...] Resources: E.g. LIFE - A Dementia Friendly [facility] on the [place] side [facility]. EQUIPMENT ENGINEER/OT/PT: Speech therapy, Occupational therapy, Physical Therapy Driving: Do you have safety concerns? Power of Bench Lay Out Technician/ planning of the patient's will Project Lifesaver: [...] visits by daughter twice daily. Weight stable. Baldwin (more content not included)... Normal [facility] CNOVon 04-20-2024 CNOV Office Visit (PATEL ) ----- JENNIFER BARBOZA ([id number]) 1950 F Date Time Provider Department 04/20/24 12:30 PM HEENA LÓPEZ During your visit today, we recorded the following information about you: Pulse Blood pressure Weight 60/minute 161/75 53.7 kg Heena López PA-C 04/20/2024 1:21 PM Signed [facility] Name: Jennifer Barboza [...] progressive cognitive decline, however, daughter notes longer. Baldwin , MRI showing atrophy. Concerned for dementia, alzheimers. Started [id number] bid, working on pt care. Patient presents [...] evening. Pa (more content not included)... Normal [facility] CNOVon 02-19-2024 CNOV Office Visit (NEMOWS ) ----- JENNIFER [id number]) 1950 F Date Time Provider Department 02/19/24 [...] 07/21 Delayed recall: 07/20 Namin/3 Clock draw: ([facility] only) 06/17 MRI brain on 10/31/22 per [...] Date V (more content not included)... Normal [facility] CNOVon 01-07-2024 CNOV Office Visit (PODIWS ) ----- JENNIFER BARBOZA ([id number]) 1950 F Date Time Provider Department 01/07/24 [...] for joint (more content not included)... Normal [facility] XR FOOT 3V AP/LAT/OBL LTon [...] plantar calcaneal spur. IMPRESSION: No acute abnormality Epic Specialist: BARBARA Transcribe Date/Time: Jan 10 2024 9:07A Dictated by : ENDY COOLEY MD This examination was interpreted and the report reviewed and electronically signed by: ENDY COOLEY MD on Jan 10 2024 9:08AM EST [id number] Normal [facility] CNOVon 11-30-2023 CNOV Office Visit (FAMPWS ) ----- JENNIFER BARBOZA ([id number]) 1950 F Date Time Provider Department 11/30/23 11:20 AM BAN OMER [facility] During your visit today, we recorded the following information about you: Pulse Respiration Blood pressure Weight 57/minute 16/minute 124/56 52.2 kg Ban Omer APRN.AUTOMATIC SILK SCREEN PRINTER 11/30/2023 12:09 PM Signed This is a [...] 124/56 Puls (more content not included)... Normal [facility] CNCOon 11-25-2023 CNCO Letter Text Normal [facility] 12 Lead EKG performed [place] [facility] [place]-03-2023 12 [place] [address] 12 Lead EKG performed by [facility] 06/03/23 1336 MR#: [id number] Acct: [id number] Name: JENNIFER BARBOZA Rep #: [id number] : 1950 73 From: Reddy Sanchez MD Attending Dr: Dr. Reddy Sanchez MD Status: DEP A MB Ordering Dr: Reddy Sanchez MD Date: 06/03/23 [place] [facility] Sex: F C Admitted: BMS/12 Lead EKG performed by [facility] ECG Report Interpretation -Sinus Bradycardia WITHIN NORMAL LIMITSElectronically signed on 06/03/2023 at 16:50 by Daniel,M[place] [employer] Version [id number] 06/03/23 1656 Date Reddy Sanchez MD CC: Dr. Hubert Forrest MD Date Dictated: 06/03/231335 Date Transcribed: 06/03/231335 Epic Specialist: CO Signed Normal [facility] Cardiology Visit Reporton Cardiology Visit Report [facility] [address] [place] [address] OFFICE VISIT Date of Service: 06/03/23 MR#: [id number] Acct: [id number] Name: JENNIFER BARBOZA Rep #: [id number] : 1950 Provider: Dr. Reddy Sanchez MD Age/Sex: 73/F [place] [facility] Status: Signed HPI HPI History of [...] Source Monitor Intake Visit Reasons: DIZZINESS (SELF) Glass Finisher Required: No Accompanied by: Daughter Is patient [...] QHS 04/24/23 [History Confirmed 06/03/23] [facility] Medical History Atherosclerotic heart disease of [place] coronary artery without angina pectoris Bradycardia Depression [...] regular rat (more content not included)... Normal [facility] MRI BRAIN WO IVCONon 023 [facility] DIAG W LORETA RTon 023 [facility] SCREENINGon 07-29-2022 [facility] XR Foot - right AP and Later [...] 2. Degenerative disease of the right foot Epic Specialist: PSCB Transcribe Date/Time: Sep 23 2020 4:40P Dictated by : ENDER GUADARRAMA MD This examination was interpreted and the report reviewed and electronically signed by: ENDER GUADARRAMA MD on Sep 23 2020 4:42PM [facility] DIV[facility] OF RADIOLOGY Provider, [facility] - 09/23/2020 * * *Final Report* [...] 2. Degenerative disease of the right foot Epic Specialist: BARBARA Transcribe Date/Time: Sep 23 2020 4:40P Dictated by : ENDER GUADARRAMA MD This examination was interpreted and the report reviewed and electronically signed by: ENDER GUADARRAMA MD on Sep 23 2020 4:42PM EST [facility] XR Foot - right AP and Later al and obliqueOrdered By: [facility]cf Provider on 09-23-2020 [facility] XR Foot - right AP and Later al and obliqueon 09-22-2020 Radiology Study observation (narrative) [facility] OBSOLETEon 03-14-2018 OBSOLETE Refill (AGCARDWST) MONET BARBOZA ([id number]) 1950 FDate Time Provider Department03/14/18 TAB MCCARTHY AGCARDWST During your visit today, we recorded the following information about you:Allergies As of Date: 03/14/2018 Noted Allergy ReactionCODEINE 06/30/2005 5 - Intolerance Comments: hallucinationsLIPITOR (ATORVASTATIN) 08/25/2012 14 - Other: See Comments Comments: Muscle cramps and joint painsMUCINEX (GUAIFENESIN) 12/04/2011 4 - HivesAMOXACILLIN (AMOXICILLIN) 10/16/2009 2 - RashDate Reviewed: 02/26/2018Reviewed by: Leslye LambertWet Cleaner MachineFlaquita Sung - Fully AssessedReason for Visit: Refill [...] Status:Closed by KIANNA HARVEY MA on 03/15/18 [facility] OBSOLETEon 04-23-2017 OBSOLETE Refill (AGCARDWST) MONET BARBOZA ([id number]) 1950 [facility] Time Provider Fyhdlcxabq35/9/17 TAB MCCARTHY During your visit today, we [...] file. Status:Closed by SEAMUS CRUZ on 04/23/17 [facility] Vital Signs Date Time Vital Sign Value Performing Clinician Marc price 09-21-2024 13:29-0400 Body mass index (BMI) [Ratio] 18.92 kg/m2 Heena Mojicaer PA-C Work Phone: [facility] 09-21-2024 13:29-0400 Body weight 53.98 kg Heena Mojicaer PA-C Work Phone: [facility] 09-21-2024 13:29-0400 Diastolic blood pressure 74 mm[Hg] Heena Mojicaer PA-C Work Phone: [facility] 09-21-2024 13:29-0400 Heart rate 86 /min Heena Mojicaer PA-C Work Phone: [facility] 09-21-2024 13:29-0400 SaO2% (BldA) [Mass fraction] 95 % Heena Mojicaer PA-C Work Phone: [facility] 09-21-2024 13:29-0400 Systolic blood pressure 102 mm[Hg] Heena Mojicaer PA-C Work Phone: [facility] 04-20-2024 12:35-0500 Body mass index (BMI) [Ratio] 18.82 kg/m2 Heena Mojicaer PA-C Work Phone: [facility] 04-20-2024 12:35-0500 Body weight 53.71 kg Heena Mojicaer PA-C Work Phone: [facility] 04-20-2024 12:35-0500 Diastolic blood pressure 75 mm[Hg] Heena Mojicaer PA-C Work Phone: [facility] 04-20-2024 12:35-0500 Heart rate 60 /min Heena Mojicaer PA-C Work Phone: [facility] 04-20-2024 12:35-0500 SaO2% (BldA) [Mass fraction] 99 % Heena López GORDON-C Work Phone: [facility] 04-20-2024 12:35-0500 Systolic blood pressure 161 mm[Hg] Heena Mojicavalente PA-C Work Phone: [facility] 02-19-2024 09:23-0400 Body mass index (BMI) [Ratio] 18.35 kg/m2 Jordi Monreal Jr., MD Work Phone: [facility] 02-19-2024 09:23-0400 Body weight 52.34 kg Jordi Monreal Jr., MD Work Phone: [facility] 02-19-2024 09:23-0400 Diastolic blood pressure 71 mm[Hg] Jordi Monreal Jr., MD Work Phone: [facility] 02-19-2024 09:23-0400 Heart rate 57 /min Jordi Monreal Jr., MD Work Phone: [facility] 02-19-2024 09:23-0400 SaO2% (BldA) [Mass fraction] 99 % Jordi Monreal Jr., MD Work Phone: [facility] 02-19-2024 09:23-0400 Systolic blood pressure 137 mm[Hg] Jordi Monreal Jr., MD Work Phone: [facility] 11-30-2023 11:21-0400 Body mass index (BMI) [Ratio] 18.28 kg/m2 Ban Omer APRN.AUTOMATIC SILK SCREEN PRINTER Work Phone: [facility] 11-30-2023 11:21-0400 Body weight 52.16 kg Ban Omer APRN.AUTOMATIC SILK SCREEN PRINTER Work Phone: [facility] 11-30-2023 11:21-0400 Diastolic blood pressure 56 mm[Hg] Ban Omer APRN.AUTOMATIC SILK SCREEN PRINTER Work Phone: [facility] 11-30-2023 11:21-0400 Heart rate 57 /min Ban Tannhof SYSTEMS LIBRARIAN.AUTOMATIC SILK SCREEN PRINTER Work Phone: [facility] 11-30-2023 11:21-0400 Respiratory rate 16 /min Ban Tannhof SYSTEMS LIBRARIAN.AUTOMATIC SILK SCREEN PRINTER Work Phone: [facility] 11-30-2023 11:21-0400 SaO2% (BldA) [Mass fraction] 100 % Ban Tannhof SYSTEMS LIBRARIAN.AUTOMATIC SILK SCREEN PRINTER Work Phone: [facility] 11-30-2023 11:21-0400 Systolic blood pressure 124 mm[Hg] Ban Tannhof SYSTEMS LIBRARIAN.AUTOMATIC SILK SCREEN PRINTER Work Phone: [facility] 10-22-2023 11:02-0400 Body mass index (BMI) [Ratio] 18.06 kg/m2 Ban Tannhof SYSTEMS LIBRARIAN.AUTOMATIC SILK SCREEN PRINTER Work Phone: [facility] 10-22-2023 11:02-0400 Body temperature 98.71 [degF] Ban Tannhof SYSTEMS LIBRARIAN.AUTOMATIC SILK SCREEN PRINTER Work Phone: [facility] 10-22-2023 11:02-0400 Body weight 51.53 kg Ban Tannhof SYSTEMS LIBRARIAN.AUTOMATIC SILK SCREEN PRINTER Work Phone: [facility] 10-22-2023 11:02-0400 Diastolic blood pressure 76 mm[Hg] Ban Tannhof SYSTEMS LIBRARIAN.AUTOMATIC SILK SCREEN PRINTER Work Phone: [facility] 10-22-2023 11:02-0400 Heart rate 60 /min Ban Tannhof SYSTEMS LIBRARIAN.AUTOMATIC SILK SCREEN PRINTER Work Phone: [facility] 10-22-2023 11:02-0400 Respiratory rate 16 /min Ban Tannhof SYSTEMS LIBRARIAN.AUTOMATIC SILK SCREEN PRINTER Work Phone: [facility] 10-22-2023 11:02-0400 Systolic blood pressure 116 mm[Hg] Ban Tannhof SYSTEMS LIBRARIAN.AUTOMATIC SILK SCREEN PRINTER Work Phone: [facility] 04-01-2023 10:22-0400 Body weight 52.62 kg Ban Tannhof SYSTEMS LIBRARIAN.AUTOMATIC SILK SCREEN PRINTER Work Phone: [facility] 04-01-2023 10:22-0400 Diastolic blood pressure 56 mm[Hg] Ban Tannhof SYSTEMS LIBRARIAN.AUTOMATIC SILK SCREEN PRINTER Work Phone: [facility] 04-01-2023 10:22-0400 Heart rate 63 /min Ban Tannhof SYSTEMS LIBRARIAN.AUTOMATIC SILK SCREEN PRINTER Work Phone: [facility] 04-01-2023 10:22-0400 Respiratory rate 16 /min Bandusty Pandahof SYSTEMS LIBRARIAN.AUTOMATIC SILK SCREEN PRINTER Work Phone: [facility] 04-01-2023 10:22-0400 SaO2% (BldA) [Mass fraction] 98 % Ban Amarilyshof SYSTEMS LIBRARIAN.AUTOMATIC SILK SCREEN PRINTER Work Phone: [facility] 04-01-2023 10:22-0400 Systolic blood pressure 92 mm[Hg] Ban Pandahof SYSTEMS LIBRARIAN.AUTOMATIC SILK SCREEN PRINTER Work Phone: [facility] 10-06-2022 17:48-0400 Body weight 52.98 kg Hubert Forrest MD Work Phone: [facility] 10-06-2022 17:48-0400 Diastolic blood pressure 76 mm[Hg] Hubert Forrest MD Work Phone: [facility] 10-06-2022 17:48-0400 Heart rate 62 /min Hubert Forrest MD Work Phone: [facility] 10-06-2022 17:48-0400 Respiratory rate 16 /min Hubert Forrest MD Work Phone: [facility] 10-06-2022 17:48-0400 Systolic blood pressure 108 mm[Hg] Hubert Forrest MD Work Phone: [facility] 06-27-2022 11:37-0500 Body weight 54.16 kg Berna Lam SYSTEMS LIBRARIAN.CNM Work Phone: [facility] 06-27-2022 11:37-0500 Diastolic blood pressure 70 mm[Hg] Berna Lam SYSTEMS LIBRARIAN.CNM Work Phone: [facility] 06-27-2022 11:37-0500 Systolic blood pressure 126 mm[Hg] Berna Lam SYSTEMS LIBRARIAN.CNM Work Phone: [facility] Encounters Encounter Date Encounter Type Care Provider Facility Start: 11-22-2024 End: 11-22-2024 ambulatory Mayra Salgado MA [facility] [place] Start: 11-22-2024 End: 11-22-2024 Patient encounter procedure Mayra Salgado MA [facility] [place] Comment on above: Population Health Na vigation Outreach ([employer] - [place] [facility]) Start: 09-21-2024 End: 09-21-2024 Patient encounter procedure Heena López PA-C Work Phone: Neurology Comment on above: Moderate dementia wi th anxiety, unspecified dementia type (HCC) (Primary Dx) Start: 09-21-2024 End: 09-21-2024 ambulatory [facility] Facility:[facility] Start: 08-05-2024 End: 08-05-2024 ambulatory Clare Wolfe Plaso [facility] [place] Start: 08-05-2024 End: 08-05-2024 Patient encounter procedure Clare L Plaso [facility] [place] Comment on above: Population Health Na vigation Outreach ( [employer] High Risk Attempt 1) Start: 07-08-2024 End: 07-08-2024 ambulatory Mayra Salgado MA [facility] [place] Start: 07-08-2024 End: 07-08-2024 Patient encounter procedure Mayra Salgado MA [facility] [place] Comment on above: Population Health Na vigation Outreach ([employer] - [place] [facility]) Start: 04-20-2024 End: 04-20-2024 Patient encounter procedure Heena López PA-C Work Phone: Neurology Comment on above: Cognitive changes (P rimary Dx); Moderate dementia with anxiety, unspecified dementia type (HCC) Start: 04-20-2024 End: 04-20-2024 ambulatory [facility] Facility:[facility] Start: 02-19-2024 End: 02-19-2024 Patient encounter procedure Jordi Monreal MD Work Phone: Neurology Comment on above: Moderate dementia wi th anxiety, unspecified dementia type (HCC) (Primary Dx); Cognitive changes Start: 02-19-2024 End: 02-19-2024 ambulatory JORDI MONREAL JR Facility:[facility] Start: 02-17-2024 End: 02-17-2024 ambulatory Mely Brown MA [facility] [place] Start: 02-17-2024 End: 02-17-2024 [facility] [place] Comment on above: Population Health Na vigation Outreach ([employer],[place] ) Start: 01-07-2024 End: 01-07-2024 Subsequent hospital visit by physician [facility] [place] Work Phone: Radiology Comment on above: Neuroma [D36.10] Start: 01-07-2024 End: 01-07-2024 ambulatory ALISHA NEGRITOMARY Facility:[facility] Start: 01-07-2024 End: 01-07-2024 Patient encounter procedure Alisha Ta Work Phone: Podiatry Comment on above: Onychodystrophy (Irena melissa Dx); Nail fungus; Neuroma Start: 12-28-2023 ambulatory Lee Ann Burgos MA [facility] [place] Start: 12-28-2023 [facility] Comment on above: Population Health Na vigation Outreach ([employer] AWV/HCC and care gaps ) Start: 11-30-2023 End: 11-30-2023 Patient encounter procedure Ban Omer APRN.AUTOMATIC SILK SCREEN PRINTER Work Phone: [facility] Comment on above: Anxiety with depress ion (Primary Dx); Pain around toenail, left foot; Cognitive changes Start: 11-30-2023 End: 11-30-2023 ambulatory BAN OMER Facility:[facility] Start: 10-23-2023 Telephone encounter Hubert love MD Work Phone: [facility] [place] Comment on above: Patient Question Start: 10-22-2023 End: 10-22-2023 Patient encounter procedure Ban Omer APRN.AUTOMATIC SILK SCREEN PRINTER Work Phone: [facility] [place] Comment on above: Nail fungus (Primary Dx); Pain around toenail, left foot; Anxiety with depression Start: 08-04-2023 ambulatory Ernestine Medina MA [facility] [place] Comment on above: Population Health Na vigation Outreach ([facility] Medicare Project/) Start: 06-03-2023 End: 06-03-2023 ambulatory [facility] Facility:[facility] Start: 05-04-2023 Refill Milton BAKER RN.AUTOMATIC SILK SCREEN PRINTER Work Phone: [facility] [place] Comment on above: Refill Request Start: 05-01-2023 Telephone encounter Mitlon wolfe SYSTEMS LIBRARIAN.AUTOMATIC SILK SCREEN PRINTER Work Phone: [facility] [place] Comment on above: Results Start: 04-13-2023 Refill Milton BAKER RN.AUTOMATIC SILK SCREEN PRINTER Work Phone: [facility] [place] Comment on above: Refill Request Start: 04-01-2023 End: 04-01-2023 Patient encounter procedure Ban Omer APRN.AUTOMATIC SILK SCREEN PRINTER Work Phone: [facility] [place] Comment on above: Dizziness (Primary D x); Bradycardia; Ear pressure, right Start: 02-26-2023 ambulatory Rhianna Calzada MA [facility] [place] Comment on above: Population Health Na vigation Outreach ([facility]) Start: 02-13-2023 ambulatory Mayra (Pss) Dopart N [facility] [place] Comment on above: Population Health Na vigation Outreach ([employer] care gaps) Start: 10-31-2022 End: 10-31-2022 Subsequent hospital visit by physician [facility] (I-Stat/1.5t) Work Phone: Radiology Comment on above: Weight loss [R63.4] Start: 10-13-2022 Telephone encounter Hubert love MD Work Phone: [facility] [place] Comment on above: Patient Question Start: 10-09-2022 Telephone encounter Ban collins APRN.CNP Work Phone: [facility] [place] Comment on above: Results (Labs ) Start: 10-06-2022 End: 10-06-2022 Patient encounter procedure Hubert Forrest MD Work Phone: [facility] [place] Comment on above: Dizziness (Primary D [...] Subsequent hospital visit by physician [facility] Start: 08-01-2022 Telephone encounter Hubert love MD Work Phone: [facility] [place] Comment on above: Patient Question Start: 07-29-2022 Documentation procedure Mammog robert Coordinator [facility] Start: 07-29-2022 Letter encounter Mammography Coordinator [facility] Department Start: 07-29-2022 Telephone encounter Milton wolfe APRN.AUTOMATIC SILK SCREEN PRINTER Work Phone: [facility] [place] Comment on above: Results Start: 07-29-2022 End: 07-29-2022 Subsequent hospital visit by physician [facility] Comment on above: Visit for screening mammogram [Z12.31] Start: 06-27-2022 End: 06-27-2022 Patient encounter procedure Berna Lam APRN.CNM Work Phone: OB/Gynecology Comment on above: Vaginal atrophy (Irena melissa Dx); Post-menopause Start: 05-02-2022 Refill Hubert arce MD Work Phone: Family [facility] [place] Comment on above: Refill Request Start: 03-13-2022 Telephone encounter Leslye vo APRN.AUTOMATIC SILK SCREEN PRINTER Work Phone: Hematology/Oncology Comment on above: Results Start: 06-18-2021 Telephone encounter Hbuert love MD Work Phone: [facility] [place] Comment on above: Results Start: 09-22-2020 End: 09-22-2020 Subsequent hospital visit by physician [facility] [place] Work Phone: Radiology Comment on above: Foot pain, right [M7 9.671] Start: 05-04-2017 Ambulatory [facility] Facility :[facility] Start: 04-02-2017 End: 04-02-2017 Ambulatory [facility] Facility:[facility] Procedures Date Procedure Procedure Detail Performing Clinician Start: 10-31-2022 Mri brain brain stem w/o contrast material Hubert Forrest MD Work Phone: Start: 09-02-2022 Digital breast tomosynthesis unilateral Milton Marco Antonio SYSTEMS LIBRARIAN.AUTOMATIC SILK SCREEN PRINTER Work Phone: Start: 07-29-2022 End: 07-29-2022 Mammography Hubert Forrest MD Work Phone: Start: 07-25-2021 Mammography Leslye Smith enter SYSTEMS LIBRARIAN.AUTOMATIC SILK SCREEN PRINTER Work Phone: Start: 06-17-2021 Lipid 1996 panel - S vincenzo or Plasma Rhianna Calzada MA Start: 09-22-2020 Radex foot complete minimum 3 views Hubert Forrest MD Work Phone: Start: 07-03-2014 Colonoscopy Leslye Smith enter SYSTEMS LIBRARIAN.AUTOMATIC SILK SCREEN PRINTER Work Phone: Plan of Treatment Date Care Activity Detail Author Start: 06-17-2026 Lipid 1996 panel - S vincenzo or Plasma Lipid Screening [facility] Start: 06-17-2026 Lipid panel Lipid Screening [facility] Start: 06-17-2026 LIPID SCREEN LIPID SCREEN [facility] Start: 10-07-2025 DIABETES SCREEN DIABETES SCREEN [facility] Start: 10-07-2025 Diabetes Screening Diabetes Screenin g [facility] Start: 09-21-2025 BP Controlled (<130/80) BP Controlle d (<130/80) [facility] Start: 03-28-2025 End: 03-28-2025 Patient encounter procedure 03/28/2025 3:00 PM EDT Office Visit Neurology [address] [place] [address] Heena López PA-C [address] [place] [address] 6 month follow up Neurology Comment on above: 6 month follow up Start: 02-13-2025 Influenza vaccination Influenz a Vaccine (Season Ended) [facility] Start: 11-29-2024 Annual PCP Team Twisting Press Operator herb Disease Visit Annual PCP Team Chronic Disease Visit [facility] Start: 11-29-2024 BP Controlled (<130/80) BP Controlle d (<130/80) [facility] Start: 10-21-2024 Annual PCP Team Twisting Press Operator herb Disease Visit Annual PCP Team Chronic Disease Visit [facility] Start: 10-21-2024 BP Controlled (<130/80) BP Controlle d (<130/80) [facility] Start: 08-23-2024 End: 08-23-2024 Patient encounter procedure 08/23/2024 11:00 AM EDT Office Visit Neurology [address] [place] [address] Heena López PA-C [address] [place], [place] [id number] follow up memory difficulty Neurology Comment on above: follow up memory dif ficulty Start: 07-03-2024 Colonoscopy COLONOSCOPY [facility] Start: 07-03-2024 COLORECTAL CANCER SCREENING COLORECTAL CANCER SCREENING [facility] Start: 07-03-2024 Screening for malign ant neoplasm of colon [facility] Start: 06-17-2024 DIABETES SCREEN DIABETES SCREEN [facility] Start: 06-15-2024 Advance Directive Discussion Advance Directive Discussion [facility] Start: 04-20-2024 End: 04-20-2024 Patient encounter procedure 04/20/2024 12:30 PM EST Office Visit Neurology [address] [place] [address] Heena López PA-C [address] [place], [place] [id number] follow up memory difficulty Neurology Comment on above: follow up memory dif ficulty Start: 04-01-2024 Annual PCP Team Twisting Press Operator herb Disease Visit Annual PCP Team Chronic Disease Visit [facility] Start: 10-18-2024 BP Controlled (<130/80) BP Controlle d (<130/80) [facility] Start: 02-19-2024 End: 02-19-2024 Patient encounter procedure 02/19/2024 9:20 AM EDT Office Visit Neurology [address] [facility] [place] [address] Jordi Monreal Jr., MD [address] [phone] Cognitive changes [R41.89] Neurology Comment on above: Cognitive changes [R 41.89] Start: 02-14-2024 Covid-19 Vaccine ( season) Covid-19 Vaccine () [facility] Start: 02-14-2024 Covid-19 Vaccine () Covid-19 Vaccine () [facility] Start: 02-14-2024 Influenza vaccination C [facility] Start: 01-07-2024 End: 01-07-2024 Patient encounter procedure 01/07/2024 10:00 AM EDT Office Visit Podiatry [address] [place] [address] Alisha Ta [address] [facility] [place] [place] [address] Nail fungus [B35.1]; Pain around toenail, left foot [M79.675] Podiatry Comment on above: Nail fungus [B35.1]; Pain around toenail, left foot [M79.675] Start: 12-31-2023 End: 12-31-2023 Patient encounter procedure 12/31/2023 11:20 AM EDT Office Visit [facility] [place] [address] [place] [address] Ban Omer APRN.AUTOMATIC SILK SCREEN PRINTER [address] [place] [address] 1 month med check/ memory [facility] [place] Comment on above: 1 month med check/ m iron gate Start: 11-25-2023 End: 11-25-2023 Follow-up encounter 11/25/2023 9:40 AM EDT [facility] [place] [address] [place] [address] Ban Omer APRN.AUTOMATIC SILK SCREEN PRINTER [address] [place] [address] 4 wk follow up [facility] [place] Comment on above: 4 wk follow up Start: 10-07-2023 ANNUAL PCP TEAM PATHOLOGY LABORATORY AIDES TEACHER HERB DISEASE VISIT ANNUAL PCP TEAM CHRONIC DISEASE VISIT [facility] Start: 10-07-2023 BP CONTROLLED (<130/80) BP CONTROLLE D (<130/80) [facility] Start: 07-29-2023 Mammography [facility] Start: 06-27-2023 BP CONTROLLED (<130/80) BP CONTROLLE D (<130/80) [facility] Start: 06-15-2023 Advance Directive Discussion Advance Directive Discussion [facility] Start: 05-28-2023 BP CONTROLLED (<130/80) BP CONTROLLE D (<130/80) [facility] Start: 03-11-2023 BP CONTROLLED (<130/80) BP CONTROLLE D (<130/80) [facility] Start: 02-13-2023 Covid-19 Vaccine ( season) Covid-19 Vaccine ( season) [facility] Start: 02-13-2023 Influenza vaccination C [facility] Start: 01-28-2023 RSV Vaccine (1 - 1-d ose 75+ series) RSV Vaccine (1 - 1-dose 75+ series) [facility] Start: 10-06-2022 End: 12-06-2022 CBC W Auto Differential panel - Blood CBC + DIFF Lab Routine Weight loss Dizziness Balance disorder Tremor of right hand Expected: 10/06/2022, Expires: 12/06/2022 [facility] Work Phone: Comment on above: Expected: 10/06/2022 , Expires: 12/06/2022 Start: 10-06-2022 End: 12-06-2022 Cobalamin (Vitamin B12) [Mass/volume] in Serum or Plasma VITAMIN B12 BLOOD Lab Routine Dizziness Balance disorder Tremor of right hand Expected: 10/06/2022, Expires: 12/06/2022 [facility] Work Phone: Comment on above: Expected: 10/06/2022 , Expires: 12/06/2022 Start: 10-06-2022 End: 12-06-2022 Comprehensive metabolic 2000 panel - Serum or Plasma COMP METABOLIC PANEL Lab Routine Weight loss Dizziness Balance disorder Hyperlipidemia, mixed Expected: 10/06/2022, Expires: 12/06/2022 [facility] Work Phone: Comment on above: Expected: 10/06/2022 , Expires: 12/06/2022 Start: 10-06-2022 End: 12-06-2022 Thyrotropin [Units/volume] in Serum or Plasma TSH BLD Lab Routine Dizziness Balance disorder Tremor of right hand Expected: 10/06/2022, Expires: 12/06/2022 [facility] Work Phone: Comment on above: Expected: 10/06/2022 , Expires: 12/06/2022 Start: 07-25-2022 Mammography MAMMOGRAM [facility] Start: 06-17-2022 ANNUAL PCP TEAM PATHOLOGY LABORATORY AIDES TEACHER HERB DISEASE VISIT ANNUAL PCP TEAM CHRONIC DISEASE VISIT [facility] Start: 06-17-2022 HEPATITIS C SCREENING HEPATITIS C SC YOLANDE [facility] Comment on above: Postponed from 01/28 (Declined at this time) Start: 06-15-2022 ADVANCE DIRECTIVE DISCUSSION ADVANCE DIRECTIVE DISCUSSION [facility] Start: 02-13-2022 Influenza vaccination INFLUENZA (#1) [facility] Start: 12-03-2021 Urine microalbumin profile [facility] Start: 06-15-2021 ADVANCE DIRECTIVE DISCUSSION ADVANCE DIRECTIVE DISCUSSION [facility] Start: 03-29-2021 COVID-19 VACCINE (3 - Booster for Pfizer series) COVID-19 VACCINE (3 - Booster for Pfizer series) [facility] Start: 03-29-2021 COVID-19 VACCINE (3 - Pfizer series) COVID-19 VACCINE (3 - Pfizer series) [facility] Start: 12-30-2014 Pneumococcal Vaccine : 50+ (2 of 2 - PCV) Pneumococcal Vaccine: 50+ (2 of 2 - PCV) [facility] Start: 12-30-2014 Pneumococcal Vaccine : 65+ (2 - PCV) Pneumococcal Vaccine: 65+ (2 - PCV) [facility] Start: 12-30-2014 Pneumococcal Vaccine : 65+ (2 of 2 - PCV) Pneumococcal Vaccine: 65+ (2 of 2 - PCV) [facility] Start: 12-30-2014 PNEUMOCOCCAL: 65+ (2 - PCV) PNEUMOCOCCAL: 65+ (2 - PCV) [facility] Start: 2008 RSV Vaccine (1 - 1-d ose 60+ series) RSV Vaccine (1 - 1-dose 60+ series) [facility] Start: 01-28-1993 COLOGUARD (FIT-DNA) COLOGUARD (FIT-D NA) [facility] Start: 01-28-[address] COLONOGRAPHY [facility] Start: 01-28-1993 FECAL OCCULT BLOOD FECAL OCCULT BLOO D [facility] Start: 01-28-1993 Screening for malign ant neoplasm of colon [facility] Start: 01-28-1993 SIGMOIDOSCOPY SIGMOIDOSCOPY [facility] Start: 01-28-1966 Anxiety Screening Anxiety Screening [facility] Start: 01-28-1966 BP Controlled (<130/80) BP Controlle d (<130/80) [facility] Start: 01-28-1966 HEPATITIS C SCREENING HEPATITIS C [facility] Start: 01-28-1966 Hepatitis C screening Hepatitis C [facility] End: 08-28-2023 Diagnostic mammography computer-aided detcj uni [facility] DIAGNOSTIC RT Radiology Routine Abnormal mammogram 1 Occurrences starting 07/29/2022 until 08/28/2023 [facility] Work Phone: Comment on above: 1 Occurrences starti ng 07/29/2022 until 08/28/2023 End: 04-01-2024 ECG COMPLETE ECG COMPLETE ECG Routine Dizziness 1 Occurrences starting 04/01/2023 until 04/01/2024 [facility] Work Phone: Comment on above: 1 Occurrences starti ng 04/01/2023 until 04/01/2024 End: 04-01-2024 Echocardiography ECHO Cardiology Routine Dizziness 1 Occurrences starting 04/01/2023 until 04/01/2024 [facility] Work Phone: Comment on above: 1 Occurrences starti ng 04/01/2023 until 04/01/2024 End: 11-05-2023 Mri brain brain stem w/o contrast material MRI BRAIN WO IVCON Radiology Routine Weight loss Dizziness Balance disorder Tremor of right hand 1 Occurrences starting 10/06/2022 until 11/05/2023 [facility] Work Phone: Comment on above: 1 Occurrences starti ng 10/06/2022 until 11/05/2023 End: 08-28-2023 Us breast uni real time with image limited US BREAST LTD RT Radiology Routine Abnormal mammogram 1 Occurrences starting 07/29/2022 until 08/28/2023 [facility] Work Phone: Comment on above: 1 Occurrences starti ng 07/29/2022 until 08/28/2023 End: 04-01-2024 US CAROTID ARTERIES [facility] US CAROTID ARTERIES [facility] Vascular Lab Routine Dizziness 1 Occurrences starting 04/01/2023 until 04/01/2024 [facility] Work Phone: Comment on above: 1 Occurrences starti ng 04/01/2023 until 04/01/2024 End: 02-05-2025 XR Foot - left AP and Lateral and oblique XR FOOT GENERAL 3V AP/LAT/OBL LEFT Radiology Routine Neuroma 1 Occurrences starting 01/07/2024 until 02/05/2025 [facility] Work Phone: Comment on above: 1 Occurrences starti ng 01/07/2024 until 02/05/2025 XR Foot - left AP an d Lateral and oblique XR FOOT GENERAL 3V AP/LAT/OBL LEFT Radiology Routine Neuroma 01/07/2024 11:05 AM EDT [facility] [place] [facility] Immunizations Immunization Date Immunization Notes Care Provider Thierno gary 06-18-2020 zoster vaccine recombinant Leslye Sung SYSTEMS LIBRARIAN.AUTOMATIC SILK SCREEN PRINTER Work Phone: [facility] Work Phone: 03-07-2020 zoster vaccine recombinant Leslye Sung SYSTEMS LIBRARIAN.AUTOMATIC SILK SCREEN PRINTER Work Phone: [facility] Work Phone: 07-20-2018 influenza virus vacc ine, unspecified formulation Rhianna Zheng BERNARD [facility] 05-26-2016 influenza, high dose seasonal, preservative-free Leslye Sung SYSTEMS LIBRARIAN.AUTOMATIC SILK SCREEN PRINTER Work Phone: [facility] 04-04-2014 influenza, high dose seasonal, preservative-free Leslye Sung SYSTEMS LIBRARIAN.AUTOMATIC SILK SCREEN PRINTER Work Phone: [facility] 03-09-2014 zoster vaccine, live [place] C santipenter SYSTEMS LIBRARIAN.AUTOMATIC SILK SCREEN PRINTER Work Phone: [facility] 12-30-2013 pneumococcal polysaccharide vaccine, 23 valent [place] Sung SYSTEMS LIBRARIAN.AUTOMATIC SILK SCREEN PRINTER Work Phone: [facility] 03-30-2013 influenza virus vacc ine, unspecified formulation [place] Sung SYSTEMS LIBRARIAN.AUTOMATIC SILK SCREEN PRINTER Work Phone: [facility] 12-04-2011 tetanus toxoid, redu jay diphtheria toxoid, and acellular pertussis vaccine, adsorbed Leslye Sung SYSTEMS LIBRARIAN.AUTOMATIC SILK SCREEN PRINTER Work Phone: [facility] 04-13-2000 tetanus and diphther ia toxoids, adsorbed, preservative free, for adult use (2 Lf of tetanus toxoid and 2 Lf of diphtheria toxoid) Leslye Sung SYSTEMS LIBRARIAN.[facility] Work Phone: [facility] Work Phone: Payers Date Payer Category Payer Self-pay 2023 Medicare [id number] 2021 Medicare (Managed Care) [employer] [place] [facility] [id number] 2021 Medicare [id number] 2015 Medicare [id number] [facility] [id number] Social History Date Type Detail Facility Start: 01-04-2013 End: 02-19-2024 Tobacco smoking status NHIS Ex-smoker [facility] Start: 04-15-1963 End: 04-15-1968 History of tobacco use Current smoker [facility] Start: 04-15-1963 End: 04-15-1968 History of tobacco use Cigarette Smoker [facility] Start: 01-04-2013 End: 06-27-2022 Cigarettes smoked current (pack per day) - Reported 0.5 [facility] Work Phone: Start: 01-04-2013 End: 02-19-2024 Tobacco use and exposure Smokeless tobacco non-user [facility] Start: 03-11-2022 End: 09-21-2024 Alcohol intake Current drinker of alcohol (finding) [facility] Start: 05-07-2020 History SDOH Alcohol Frequency 4 [facility] Start: 05-07-2020 History SDOH Alcohol Std Drinks 1 [facility] Start: 08-17-2012 History SDOH Alcohol Comment Ocassionally [facility] Start: 05-07-2020 History SDOH Social Connections Get Together 2 [facility] Start: 05-07-2020 History SDOH Physical Activity DPW 3 [facility] Start: 05-07-2020 History SDOH Financial 5 [facility] Start: 05-07-2020 Education 15 [facility] Start: 1950 Sex Assigned At Not on file [facility] Start: 08-23-2020 End: 03-05-2022 Exposure to SARS-CoV-2 (event) Not sure [facility] Start: 05-07-2020 End: 06-27-2022 Social connection and isolation panel [facility] Work Phone: Do you belong to any clubs or organizations such as catholic groups, unions, fraternal or athletic groups, or school groups? Yes [facility] Work Phone: Are you now , , , , never or living with a partner? [facility] Work Phone: How often to you hav e a drink containing alcohol? 2-3 time sa week [facility] Work Phone: How many standard dr inks containing alcohol do you have on a typical day? 1 or 2 [facility] Work Phone: How often do you hav e 6 or more drinks on 1 occasion? Never [facility] Work Phone: How hard is it for y ou to pay for the very basics like food, housing, medical care, and heating Not hard at all [facility] Work Phone: Do you feel stress - tense, restless, nervous, or anxious, or unable to sleep at night because your mind is troubled all the time - these days [OSQ] To some extent [facility] Work Phone: (I/We) worried alba er (my/our) food would run out before (I/we) got money to buy more. Never true [facility] Work Phone: Functional Status Date Assessment Result Facility 01-01-2015 Are you deaf, or do you have serious difficulty hearing Yes 01/01/2015 9:22 AM Chrystal Dozier LPN Yes [facility] 01-01-2015 Are you blind, or do you have serious difficulty seeing, even when wearing glasses No 01/01/2015 9:22 AM Chrystal Dozier LPN No [facility] 01-01-2015 Do you have serious difficulty walking or climbing stairs No 01/01/2015 9:22 AM Chrystal Dozier LPN No [facility] 01-01-2015 Do you have difficul ty dressing or bathing No 01/01/2015 9:22 AM Chrystal Dozier LPN No [facility] 01-01-2015 Because of a physica l, mental, or emotional condition, do you have difficulty doing errands alone such as visiting a physician's office or shopping No 01/01/2015 9:22 AM Chrystal Dozier LPN No [facility] Mental Status Date Assessment Result Facility 01-01-2015 Because of a physica l, mental, or emotional condition, do you have serious difficulty concentrating, remembering, or making decisions No 01/01/2015 9:22 AM EDT Chrystal Sandoval LPN No [facility] Clinical Notes 07-22-2013 to 11-22-2024 Mayra Salgado MA - 11/22/2024 6:58 AM EDTPatiHeena Sanabria PA-C - 09/21/2024 1:23 PM EDTPlaso Population Health NavigatorClare - 08/05/2024 9:50 AM EST Note Date & Type Note Facility 11-22-2024 Note HNO ID: [id number] Author: MAYRA SALGADO MA Service: ? Author Type: Milk Pickup Truck Driver Type: Progress Notes Filed: 11/22/2024 08:52 Note [...] Patient due for: Medicare Annual Wellness Visit [employer] Active: Yes Left message for patient to call back. Sent Flinqer message. HCC: Yes Reason for Outreach Care Gap/HCC or Scheduling Wellness Visits Care Gaps due: Medicare Annual Wellness Visit Patient Contacted: Unable or unnecessary to reach patient: Left message [employer] message sent HCC related Navigation Signature: Mayra Salgado MA November 22, 2024 6:58 AM [facility] 11-22-2024 History of Present illness [...] Patient due for: Medicare Annual Wellness Visit X[employer] Kitchenhart Active: Yes Left message for patient to call back. Sent Eventifiert message. HCC: Yes Reason for Outreach Care Gap/HCC or Scheduling Wellness Visits Care Gaps due: Medicare Annual Wellness Visit Patient Contacted: Unable or unnecessary to reach patient: Left message MyChart message sent HCC related Navigation Signature: Mayra Salgado MA November 22, 2024 6:58 AM documented in this encounter [facility] 11-22-2024 Note Patient Outreach (BREANNA TNAV) JENNIFER BARBOZA ([id number]) 1950 F Date Time Provider Department 11/22/24 [...] Patient due for: Medicare Annual Wellness Visit [employer] Kitchenhart Active: Yes Left message for patient to call back. Sent Eventifiert message. HCC: Yes Reason for Outreach Care [...] Population Health Navigation Outreach [3910] Cmt: Edyta Lynnmaimonides [facility] [place] PCSA Prescriptions as of 11/22/2024 [...] Encounter Status:Closed by MAYRA SALGADO on 11/22/24 [facility] 11-03-2024 Note HNO ID: [id number] Author: GUY ISIDRO, RN Service: ? Author [...] Isidro RN November 03, 2024 5:38 PM [facility] 11-03-2024 Note Patient Outreach (AM BCMG) JENNIFER BARBOZA ([id number]) 1950 F Date Time Provider Department 11/03/24 [...] Fully Assessed Reason for Visit: Case Review [[id number]] Prescriptions as of 11/03/2024 - memantine (NAMENDA) [...] Encounter Status:Closed by GUY ISIDRO on 11/03/24 [facility] 09-21-2024 Instructions Heena López PA-C - 09/21/2024 2:01 PM EDT Continue with namenda 10mg twice daily Stay physically active and cognitively active Have hearing aids checked For mood management- defer to primary care but can also send to geriatric psychiatry (may consider cymbalta or other antidepressant) Follow up in 6 months documented in this encounter [facility] 09-21-2024 Note HNO ID: [id number] Author: HEENA LÓPEZ PA-C Service: ? Author Type: Physician Supervisor Byproducts Type: Progress Notes Filed: 09/21/2024 14:32 Note Text: [facility] Neurology Name: Jennifer Barboza [...] - [facility] on the [place] side [facility]. EQUIPMENT ENGINEER/OT/PT: Speech therapy, Occupational therapy, Physical Therapy Driving: Do you have safety concerns? Power of Bench Lay Out Technician/ planning of the patient's will Project Lifesaver: [...] visits by daughter twice daily. Weight stable. Baldwin was . Patient presents with her daughter for follow-up appointment. Notes that she has been doing well, feels that she is stable from previous. Notes that she is not as physically active as she used to be but does walk often, (more content not included)... [facility] 09-21-2024 History of Present illness Narrative Images from the original note were not included. [facility] Name: Jennifer Barboza [...] - [facility] on the [place] [facility]. EQUIPMENT ENGINEER/OT/PT: Speech therapy, Occupational therapy, Physical Therapy Driving: Do you have safety concerns? Power of Bench Lay Out Technician/ planning of the patient's will Project Lifesaver: [...] visits by daughter twice daily. Weight stable. Baldwin was . Patient presents with her daughter [...] (Final result) This note was dictated using [employer] speech recognition software and may contain some [...] which included preparing to see the patient, [id number] patient care, completing clinical documentation, obtaining and/or reviewing separately obtained history, performing a medically appropriate examination, counseling and educating the patient/family/caregiver, and ordering medications, tests, or procedures. The patient consented to the use of [employer] software for draft documentation of the visit consistent with [facility] s Notice of Privacy Practices. documented in this encounter [facility] 08-05-2024 Note HNO ID: [id number] Author: ?, ?, ? Service: ? Author [...] Health Navigator August 05, 2024 9:50 AM [facility] 08-05-2024 History of Present illness [...] feel it's necessary Navigation Signature: Clare Godoy Gotcha Ninjas Navigobinna August 05, 2024 9:50 AM documented in this encounter [facility] 08-05-2024 Note Patient Outreach (NE TNAV) JENNIFER BARBOZA ([id number]) 1950 F Date Time Provider Department 08/05/24 CLARE GODOY NETNAV During your visit today, we recorded the following information about you: Walt Gotcha Ninjas Clare Sahu 08/05/2024 9:51 AM Signed POPULATION [...] feel it's necessary Navigation Signature: Clare Godoy Gotcha Ninjas Navigobinna August 05, 2024 9:50 AM Allergies [...] [facility] on 08/05/24 [facility] 07-08-2024 Note HNO ID: [id number] Author: MAYRA SALGADO MA Service: ? Author Type: Milk Pickup Truck Driver Type: Progress Notes Filed: 07/08/2024 12:54 Note [...] or unnecessary to reach patient: Left message [employer] Kitchen[employer] message sent HCC related Navigation Signature: Mayra Salgado MA July 08, 2024 12:49 PM [facility] 07-08-2024 History of Present illness [...] message for patient to call back. Sent Eventifiert message. HCC: Yes Reason for Outreach Care Gap/HCC or Scheduling Wellness Visits Care Gaps due: Medicare Annual Wellness Visit Controlling Blood Pressure Flu Vaccine Patient Contacted: Unable or unnecessary to reach patient: Left message [employer] Kitchenhart message sent HCC related Navigation Signature: Mayra Salgado MA July 08, 2024 12:49 PM documented in this encounter [facility] 07-08-2024 Note Patient Outreach (NE TNAV) JENNIFER BARBOZA ([id number]) 1950 F Date Time Provider Department 07/08/24 MAYRA SALGADO During your visit today, we recorded the following information about you: Mayra Salgado MA 07/08/2024 12:54 PM Signed POPULATION HEALTH NAVIGATION OUTREACH Action/FYI Patient is on [employer] [facility] list for below and needs appointment to address: Anxiety Screening Hepatitis C Screening BP Controlled (<130/80) Pneumococcal Vaccine: 50+(2 of 2 - PCV) DTaP,Tdap,Td Vaccine(2 - Td or Tdap) RSV Vaccine(1 - 1-dose 75+ series) Influenza Vaccine(1) Covid-19 Vaccine() Advance Directive Discussion No results found for: HBA1C Patient due for: Medicare Annual Wellness Visit Controlling Blood Pressure Flu Vaccine [employer] Active: Yes Left message for patient to call back. Sent Flinqer message. HCC: Yes Reason for Outreach Care Gap/HCC or Scheduling Wellness Visits Care Gaps due: Medicare Annual Wellness Visit Controlling Blood Pressure Flu Vaccine Patient Contacted: Unable or unnecessary to reach patient: Left message [employer] message sent [facility] related Navigation Signature: Mayra Salgado MA July [...] Navigation Outreach [[id number]] Cmt: Edyta [employer] - [place] PCSA Prescriptions as of 07/08/2024 - memantine [...] Encounter Status:Closed by MAYRA SALGADO on 07/08/24 [facility] 04-20-2024 Instructions Heena López PA-C - 04/20/2024 12:59 PM EST Continue with namenda 10mg twice daily Continue with physical activity and brain exercises. Keep an eye on weight Follow up in 4-5 months documented in this encounter [facility] 04-20-2024 Note HNO ID: [id number] Author: HEENA LÓPEZ PA-C Service: ? Author Type: Physician Supervisor Byproducts Type: Progress Notes Filed: 04/20/2024 13:21 Note Text: [facility] Name: Jennifer Barboza [...] progressive cognitive decline, however, daughter notes longer. Baldwin , MRI showing atrophy. Concerned for dementia, alzheimers. Started [id number] bid, working on pt care. Patient presents [...] patient's daughter no (more content not included)... [facility] 04-20-2024 History of Present illness Narrative Images from the original note were not included. [facility] Name: Jennifer Barboza [...] progressive cognitive decline, however, daughter notes longer. [place] , MRI showing atrophy. Concerned for dementia, alzheimers. Started [email or web address] bid, working on pt care. Patient presents [...] around her neighborhood, also reads and does [employer]'s at home. Sleep concerns? No, 8 hours [...] (Final result) This note was dictated using [employer] speech recognition software and may contain some [...] which included preparing to see the patient, [id number] patient care, completing clinical documentation, obtaining and/or reviewing separately obtained history, performing a medically appropriate examination, counseling and educating the patient/family/caregiver, and ordering medications, tests, or procedures. documented in this encounter [facility] 02-19-2024 Note HNO ID: [id number] Author: JORDI MONREAL JR, MD Service: ? [...] 07/21 Delayed recall: 07/20 Namin/3 Clock draw: ([facility] only) 06/17 MRI brain on 10/31/22 per [...] AST (U/L) D (more content not included)... [facility] 02-19-2024 History of Present illness [...] 07/21 Delayed recall: 07/20 Namin/3 Clock draw: (holy [facility] only) 06/17 MRI brain on 10/31/22 per [...] which included preparing to see the patient, [id number] patient care, completing clinical documentation, obtaining and/or [...] 4 - Moderate documented in this encounter [facility] 02-17-2024 Note HNO ID: [id number] Author: MELY BROWN MA Service: ? Author Type: Milk Pickup Truck Driver Type: Progress Notes Filed: 02/17/2024 10:06 Note [...] Contacted: Unable or unnecessary to reach patient: [employer] message sent Navigation Signature: Mely Brown MA February 17, 2024 9:06 AM [facility] 02-17-2024 History of Present illness Narrative POPULATION HEALTH NAVIGATION OUTREACH Action/Latrice Darby [place] Discuss/Due for: Follow Up/ Future Medicare Wellness, Influenza Vaccination Follow up in 1 month from 11/30/2023 office visit /Medicare Wellness due 11/29/2024 HCC Score: 0 Outcome: 1st attempt - Patient answered stated no thank you/hung up prior to asking her date of 2nd attempt - [employer] message sent Reason for Outreach Care Gap/HCC or Scheduling Wellness Visits Care Gaps due: Medicare Annual Wellness Visit Follow-up Appointment Flu Vaccine Patient Contacted: Unable or unnecessary to reach patient: [employer] message sent Navigation Signature: Mely Brown MA February 17, 2024 9:06 AM documented in this encounter [facility] 02-17-2024 Note Patient Outreach (NE TNAV) JENNIFER BARBOZA ([id number]) 1950 F Date Time Provider Department 02/17/24 [...] Encounter Status:Closed by MELY BROWN on 02/17/24 [facility] 01-07-2024 History of Present illness [...] PATIENT PRESENTS WITH AN IMPLANTABLE OR ATTACHED PEER EDUCATOR: No RADIOLOGY DEPARTMENT: General X-ray: Exam(s) Completed: Lower Extremity X-Ray(s): Foot, Left and Wt. Bearing PERIPHERAL IV DATA: Not applicable SIGNED BY: ELLIE Chappell) January 07, 2024 10:50 AM documented in this encounter [facility] 01-07-2024 Note HNO ID: [id number] Author: CARLOTA JESUS RT(R) Service: Radiology Author [...] PATIENT PRESENTS WITH AN IMPLANTABLE OR ATTACHED PEER EDUCATOR: No RADIOLOGY DEPARTMENT: General X-ray: Exam(s) Completed: Lower Extremity X-Ray(s): Foot, Left and Wt. Bearing PERIPHERAL IV DATA: Not applicable SIGNED BY: RT Ta(R) January 07, 2024 10:50 AM [facility] 01-07-2024 Note HNO ID: [id number] Author: PATI OLIVA RN Service: ? Author [...] utilize the above equipment. Pati Oliva RN [facility] 01-07-2024 History of Present illness [...] injection. Alisha Ta DPM Podiatry [address] [facility] [address] Dept: [phone] Dept AMB ROOMING INTAKE FLOWSHEET DATA Pain Pain Level: 5 Pain Location: Toe Description: Sore Duration Amount of Time: 6 Duration Units: Months Frequency: Intermittent Intervention/Comfort measure: Reposition, Relaxation Patient presents with: Left Great Toe - New, Nail Fungus Right Great Toe - New, Nail Fungus, Mass, Pain Dilcia Barboza LPN documented in this encounter [facility] 01-07-2024 Instructions Alisha Ta - 01/07/2024 10:38 AM EDT Powerstep Original Full length. Can purchase at [facility] Runner and boots,shoes and more here in [place], [employer] in [place] or [place]. Also can find in [place] in [facility]. Powersteps can also be purchased online, [...] fits well together documented in this encounter [facility] 01-07-2024 Note HNO ID: [id number] Author: ALISHA TA, ? Service: ? Author [...] breath. Psychology: Patient (more content not included)... [facility] 01-07-2024 Note HNO ID: [id number] Author: DILCIA BARBOZA LPN Service: ? Author [...] Nail Fungus, Mass, Pain Dilcia Barboza LPN [facility] 12-28-2023 Note HNO ID: [id number] Author: LEE ANN BURGOS MA Service: ? Author Type: Milk Pickup Truck Driver Type: Progress Notes Filed: 12/28/2023 10:08 Note [...] to reach patient: Unable to leave message [employer] message sent HCC related Navigation Signature: Lee Ann Burgos MA December 28, 2023 10:08 AM [facility] 12-28-2023 History of Present illness [...] to reach patient: Unable to leave message [employer] message sent HCC related Navigation Signature: Lee Ann Burgos MA December 28, 2023 10:08 AM documented in this encounter [facility] 12-28-2023 Note Patient Outreach (NE TNAV) JENNIFER BARBOZA ([id number]) 1950 F Date Time Provider Department 12/28/23 [...] to reach patient: Unable to leave message [employer] message sent HCC related Navigation Signature: Lee [...] Status:Closed by LEE ANN BURGOS on 12/28/23 [facility] 11-30-2023 Instructions Ban Omer APRN.CNP - 11/30/2023 11:41 AM EDT Increase Zoloft to 100 mg daily, May use 2 tabs of the 50 mg already in the home. Schedule appointment with Neurology Follow up in 1 month or sooner as needed documented in this encounter [facility] 11-30-2023 History of Present illness Narrative This [...] APRN.CNP This note was partially generated using [employer] voice recognition system. Note was reviewed for accuracy. There may be minor misspellings or grammar miscues with [employer] voice recognition. documented in this encounter [facility] 11-30-2023 Note HNO ID: [id number] Author: BAN OMER APRN.CNP Service: ? Author [...] rashes or lesion (more content not included)... [facility] 10-27-2023 Telephone encounter Note Call placed to daughter (Daniela) and message given. Daniela is going to call around and see which office can get her in soonest and will call back to have referral sent to that office if finds a provider than can see patient before December. Daysi Griffin RN [facility] 10-27-2023 Miscellaneous Notes Call placed to daughter (Daniela) and message given. Daniela is going to call around and see which office can get her in soonest and will call back to have referral sent to that office if finds a provider than can see patient before December. Daysi Griffin RN She could try to get in to a [facility]print Maker outside [place] and see if she could get in sooner. Dr Miller in [place] is also good. Hubert Forrest MD Pts [...] Ban is out. Please review and advise, Dayis Griffin RN documented in this encounter [facility] 10-26-2023 Telephone encounter Note She could try to get in to a [facility]print [facility] outside [place] and see if she could get in sooner. Dr Miller in [place] is also good. Hubert Forrest MD [facility] 10-23-2023 Telephone encounter Note Pts daughter called [...] appointment up. Please call and advise. Anjali Mayfield RN T [facility] 10-23-2023 Telephone encounter Note She may go ahead and start on Lamisil pills once daily, as ordered, which is what is primarily used for toenail fungal infections. Hubert Forrest MD [facility] 10-23-2023 Telephone encounter Note Daughter (Daniela) calls [...] Please review and advise, Daysi Griffin RN [facility] 10-22-2023 Instructions Ban Omer APRN.AUTOMATIC SILK SCREEN PRINTER - 10/22/2023 11:24 AM EDT Increase Zoloft, take an additional 25 mg tablet along with the 50 mg tablet, total 75 mg daily. Recommend consult with podiatry for toes Continue to monitor toes, any increased redness, warmth, or discharge contact the office. Follow up in 1 month. documented in this encounter [facility] 10-22-2023 History of Present illness Narrative This [...] APRN.CNP This note was partially generated using [employer] voice recognition system. Note was reviewed for accuracy. There may be minor misspellings or grammar miscues with [employer] voice recognition. documented in this encounter [facility] 08-04-2023 History of Present illness Narrative POPULATION [...] 2023 9:28 AM documented in this encounter [facility] 05-04-2023 Miscellaneous Notes The following approved medication requests have been transmitted electronically. Requested Prescriptions Pending Prescriptions Disp Refills sertraline (ZOLOFT) 50 mg tablet [Pharmacy Med Name: SERTRALINE HCL TABS 50MG] 90 tablet 3 Sig: take 1 tablet daily Milton Bernard APRN.CNP Last office visit: 04/01/23/u scheduled: none Stacie Jaimes Ma documented in this encounter [facility] 05-01-2023 Miscellaneous Notes Phoned patient and given provider's message below with verbalized understanding. Please let the patient know that her ultrasound of the carotids showed minimal stenosis, plaque. Likely not causing dizziness. Recommendation is to continue with plan to see cardiology as scheduled. Milton Bernard APRN.CNP documented in this encounter [facility] 04-13-2023 Miscellaneous Notes The following approved medication requests have been transmitted electronically. Requested Prescriptions Pending Prescriptions Disp Refills rosuvastatin (CRESTOR) 20 mg tablet [Pharmacy Med Name: ROSUVASTATIN TABS 20MG] 90 tablet 3 Sig: take 1 tablet daily Milton Bernard APRN.CNP Last office visit: 04/01/23/u scheduled: none Stacie Jaimes Ma documented in this encounter [facility] 04-01-2023 Instructions Ban Omer APRN.CNP - 04/01/2023 [...] pending test results. documented in this encounter [facility] 04-01-2023 History of Present illness Narrative This [...] discussed and patient voices understanding. Ban Omer APRN.AUTOMATIC SILK SCREEN PRINTER This note was partially generated using [employer] voice recognition system. Note was reviewed for accuracy. There may be minor misspellings or grammar miscues with [employer] voice recognition. documented in this encounter [facility] 02-26-2023 History of Present illness Narrative POPULATION HEALTH NAVIGATION OUTREACH Action/FYI PCP appointment needed: YES, 6 month Follow Up around 04/07/2023 HCC Gaps: I73.9 - (Reprompt) Small vessel disease (HCC) - [id number] Last Billed 06/17/2021
E46 - (Reprompt) Protein-calorie malnutrition, unspecified severity (HCC)
F32.0 - (Reprompt) Major depressive disorder, single episode, mild (HCC) - [id number] Last Billed 08/16/2020
Care Gaps to Address: [...] 2023 9:26 AM documented in this encounter [facility] 02-13-2023 History of Present illness Narrative POPULATION HEALTH NAVIGATION OUTREACH Action/FYI 02/13/23 Discuss the following [facility] care gaps: ~Medicare Wellness Exam ~Flu vaccine Outcome: ~Left message on voice mail and sent XOXO Kitchenhart message. Patient Identified by Name and : [...] 2023 4:22 PM documented in this encounter [facility] 10-31-2022 History of Present illness Narrative Radiology [...] 2022 12:10 PM documented in this encounter [facility] 10-13-2022 Miscellaneous Notes Pt notified and voiced understanding. Stacie Jaimes Ma Yes, it is fine to do both; get the MRI and have cataract surgery Hubetr Forrest MD Patient calls and states that [...] Anju Mackey RN documented in this encounter [facility] 10-09-2022 Miscellaneous Notes Pt notified and voiced [...] Ban Omer APRN.ELSIE documented in this encounter [facility] 10-06-2022 History of Present illness Narrative Chief [...] Adenocarcinoma of endometrium stage 1. Follows with LAMINATION BUILDER Berna Lam for vaginal atrophy. Past medical [...] Past Histories independently gathered by the clinical help desk support and the remaining scribed note accurately describes [...] Kay Perera Ma documented in this encounter [facility] 10-06-2022 Instructions Kay Perera Ma - 10/06/2022 6:11 PM EDT Complete non-fasting labs. Lab hours are Thursday through Thursday 7:00 am to 5:00 pm. Thursday 7:30 am to 12:00 pm. Schedule MRI. Once we get the results we will call and notify you and will go from there. documented in this encounter [facility] 08-01-2022 Miscellaneous Notes Pt. informed all questions answered. Patient called requesting to speak with clinical. She is scheduled for a diag mamm and does not understand why. Please call patient and advise. documented in this encounter [facility] 07-31-2022 Miscellaneous Notes Diag mamm set up for 09/02 Milton Bernard APRN.AUTOMATIC SILK SCREEN PRINTER Spoke with patient and informed of results [...] Milton Bernard APRN.CNP documented in this encounter [facility] 07-29-2022 Miscellaneous Notes July 30, 2022 PID: [id number] Jennifer Barboza [address] [place] [id number] Dear Ms. Barboza, Your recent breast imaging exam on 07/29/2022 showed a possible finding that requires additional imaging studies for a complete evaluation. Most such findings are probably benign (not cancer). If you have a healthcare provider who ordered/prescribed your screening mammogram: Please call [phone] or [phone] to schedule an appointment for your additional [...] and reports are kept on file at [facility] as part of your permanent medical record, and are available for your continuing care. Thank you for allowing us to help in meeting your health care needs. Sincerely, Dr. Tejeda Interpreting Radiologist [facility] (Additional imaging) documented in this encounter [facility] 07-29-2022 History of Present illness Narrative Radiology [...] 2022 10:27 AM documented in this encounter [facility] 06-27-2022 History of Present illness Narrative Jennifer [...] office if any further concerns. 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 Mely Rosa documented in this encounter [facility] 03-13-2022 Miscellaneous Notes Patient notified. Heena Chaudhari LPN Component Latest Ref Rng & Units 03/01/2019 02/27/2020 03/04/2021 03/11/2022 CA 125 <39 U/mL 5 6 5 5 CA125 looks good. Leslye Sung APRN.ELSIE Patient calling for 03/11 lab results. documented in this encounter [facility] 06-20-2021 Miscellaneous Notes Patient notified of recommendations [...] Abs Lymph 1.00 - 4.00 k/uL 1.58 Trinity% % 6.2 Abs Trinity <0.87 k/uL 0.46 Eosin% % 2.1 Abs [...] Penelope Ferguson LPN documented in this encounter [facility] 09-22-2020 History of Present illness Narrative Radiology [...] 2020 11:45 AM documented in this encounter [facility] 07-22-2013 History of Past i llness Narrative [...] of this encounter (statuses as of 03/13/2022) [facility] History of Past illness Narrative* Problem Noted [...] of this encounter (statuses as of 05/05/2022) [facility] of Past illness Narrative* Problem Noted [...] of this encounter (statuses as of 06/03/2022) [facility] of Past illness Narrative* Problem Noted [...] of this encounter (statuses as of 06/27/2022) [facility] of Past [facility] Narrative* Problem Noted [...] of this encounter (statuses as of 07/31/2022) [facility] of Past [facility] Narrative* Problem Noted [...] of this encounter (statuses as of 07/31/2022) [facility] of Past [facility] Narrative* Problem Noted [...] of this encounter (statuses as of 08/01/2022) [facility] of [facility] Narrative* Problem Noted [...] of this encounter (statuses as of 10/07/2022) [facility] of Past [facility] Narrative* Problem Noted [...] of this encounter (statuses as of 10/09/2022) [facility] of Past [facility] Narrative* Problem Noted [...] of this encounter (statuses as of 10/14/2022) [facility] of [facility] Narrative* Problem Noted [...] of this encounter (statuses as of 02/14/2023) [facility] of [facility] Narrative* Problem Noted [...] of this encounter (statuses as of 02/26/2023) [facility] Narrative* Problem Noted [...] of this encounter (statuses as of 04/01/2023) [facility] of [facility] Narrative* Problem Noted [...] of this encounter (statuses as of 04/13/2023) [facility] of [facility] Narrative* Problem Noted [...] of this encounter (statuses as of 04/19/2023) [facility] of [facility] Narrative* Problem Noted [...] of this encounter (statuses as of 04/19/2023) [facility] of [facility] Narrative* Problem Noted [...] of this encounter (statuses as of 04/19/2023) [facility] of Past [facility] Narrative* Problem Noted [...] of this encounter (statuses as of 05/01/2023) [facility] of [facility] Narrative* Problem Noted [...] of this encounter (statuses as of 05/04/2023) [facility] of Past illness Narrative* Problem Noted [...] of this encounter (statuses as of 08/04/2023) [facility] Diagnosis Depression, unspecified depression type [facility] Diagnosis Vaginal atrophy- Primary Postmenopausal atrophic vaginitis Post-menopause Asymptomatic postmenopausal status (age-related) (natural) [facility] Abnormal mamm[facility]- Primary Abnormal mammogram, unspecified [facility] Diagnosis Dizziness- Primary Dizziness and giddiness [...] Drug induced neutropenia [facility] Diagnosis Dizziness- Primary Dizziness and giddiness Bradycardia Other specified cardiac dysrhythmias Ear pressure, right [facility] Diagnosis Weight loss Loss of weight Dizziness Dizziness and giddiness Balance disorder Other symptoms involving nervous and musculoskeletal systems Tremor of right hand [facility] Diagnosis Abnormal mammogram Abnormal mammogram, unspecified [facility] Diagnosis Depression, unspecified depression type [facility] Diagnosis Nail fungus- Primary Dermatophytosis of nail Pain around toenail, left foot Anxiety with depression [facility] Diagnosis Anxiety with depression- Primary Pain around toenail, left foot Cognitive changes Other signs and symptoms involving cognition [facility] Diagnosis Onychodystrophy- Primary Other specified disease of nail Nail fungus Dermatophytosis of nail Neuroma Other benign neoplasm of connective and other soft tissue of unspecified site documented in this encounter [facility] Diagnosis Neuroma Other benign neoplasm of connective and other soft tissue of unspecified site documented in this encounter [facility]* Diagnosis Moderate dementia with anxiety, unspecified dementia type (HCC)- Primary Cognitive changes Other signs and symptoms involving cognition documented in this encounter [facility]* Diagnosis Foot pain, right Pain in limb documented in this encounter [facility]* Diagnosis Cognitive changes- Primary Other signs and symptoms involving cognition Moderate dementia with anxiety, unspecified dementia type (HCC) documented in this encounter [facility]* Diagnosis Moderate dementia with anxiety, unspecified dementia type (HCC)- Primary [facility] in this encounter [facility] Diagnostic Procedure Only (Routine) - Authorized Specialty Diagnoses / Procedures Referred By Namita andino Referred To Contact [facility] Diagnoses Abnormal mammogram Procedures US BREAST LTD RT US BREAST UNI REAL TIME WITH IMAGE LIMITED Milton Bernard APRN.AUTOMATIC SILK SCREEN PRINTER [address] [place] [address] [facility] [address] [place] [address] Referral ID Status Reason Start Date Expiration Date Visits Requested Visits Authorized [id number] Authorized Auto-Generat ed Referral 07/29/2022 08/28/2023 1 1 * Diagnostic Procedure Only (Routine) - Authorized Specialty Diagnoses / Procedures Referred By Namita andino Referred To Contact [facility] Diagnoses Abnormal mammogram Procedures NEMESIO DIAGNOSTIC RT DIAGNOSTIC MAMMOGRAPHY COMPUTER-AIDED DETCJ UNI Milton Bernard APRN.CNP [address] [place] [address] [facility] [address] [place] [address] Referral ID Status Reason Start Date Expiration Date Visits Requested Visits Authorized [id number] Authorized Auto-Generat ed Referral 07/29/2022 08/28/2023 1 1 [facility] for referral (narrative)* Outpatient Procedure (Routine) - Authorized Specialty Diagnoses / Procedures Referred By Contac t Referred To Contact [facility] [place] Diagnoses Dizziness Procedures US CAROTID ARTERIES SERGIO VAS LAB DUPLEX SCAN EXTRACRANIAL ART COMPL BI STUDY Ban Omer APRN.AUTOMATIC SILK SCREEN PRINTER [address] [place] [address] [address] Referral ID Status Reason Start Date Expiration Date Visits Requested Visits Authorized [id number] Authorized Auto-Generat ed Referral 3 03/31/2024 1 1 * Outpatient Procedure (Routine) - Authorized Specialty Diagnoses / Procedures Referred By Contac t Referred To Contact [facility] Diagnoses Dizziness Procedures ECHO ECHO TTHRC R-T 2D W/WOM-MODE COMPL SPEC&COLR D Ban Omer APRN.AUTOMATIC SILK SCREEN PRINTER [address] [place] [address] [address] Referral ID Status Reason Start Date Expiration Date Visits Requested Visits Authorized [id number] Authorized Auto-Generat ed Referral 3 03/31/2024 1 1 * Outpatient Procedure (Routine) - Pending Review Specialty Diagnoses / Procedures Referred By Contac t Referred To Contact [facility] [place] Diagnoses Dizziness Procedures ECG COMPLETE ECG ROUTINE ECG W/LEAST 12 LDS W/I&R Ban Omer APRN.AUTOMATIC SILK SCREEN PRINTER [address] [place] [address] [address] Referral ID Status Reason Start Date Expiration Date Visits Requested Visits Authorized [id number] Pending Review Auto-Generat ed Referral 3 03/31/2024 1 1 * Consult, Test, Treat (Routine) - Pending Review Specialty Diagnoses / Procedures Referred By Contac t Referred To Contact Cardiology Diagnoses Dizziness Procedures CONSULT TO CARDIOLOGY OFFICE/OUTPATIENT NEW HIGH MDM 60-74 MINUTES Ban Omer APRN.CNP [address] [place] [address] Referral ID Status Reason Start Date Expiration Date Visits Requested Visits Authorized [id number] Pending Review PCP Requested Referral 3 03/31/2024 1 1 [facility] for referral (narrative)* Diagnostic Procedure Only (Routine) - Closed Specialty Diagnoses / Procedures Referred By Contac t Referred To Contact XR IMAGING Diagnoses Neuroma Procedures XR FOOT GENERAL 3V AP/LAT/OBL LEFT RADEX FOOT COMPLETE MINIMUM 3 VIEWS Alisha Ta [address] [place] [address] [place] [address] Referral ID Status Reason Start Date Expiration Date V isits Requested Visits Authorized [id number] Closed Auto-Generate d Referral 01/07/2024 02/05/2025 1 1 [facility] for visit Narrative* Diagnostic Procedure Only (Routine) - Closed Specialty Diagnoses / Procedures Referred By Contac t Referred To Contact [facility] Diagnoses Visit for screening mammogram Procedures NEMESIO SCREENING SCREENING MAMMOGRAPHY BI 2-VIEW BREAST INC Hubert Joya MD [address] [place] [address] [facility] Imaging [address] [place] [address] Referral ID Status Reason Start Date Expiration Date V isits Requested Visits Authorized [id number] Closed Auto-Generate d Referral 07/04/2022 08/02/2023 1 1 [facility] for visit Narrative* Diagnostic Procedure Only (Routine) - Closed Specialty Diagnoses / Procedures Referred By Contac t Referred To Contact [facility] Diagnoses Abnormal mammogram Procedures NEMESIO DIAGNOSTIC RT DIAGNOSTIC MAMMOGRAPHY COMPUTER-AIDED DETCJ UNI Milton BernardNEGRO.AUTOMATIC SILK SCREEN PRINTER [address] [place] [address] [facility] Imaging [address] [place] [address] Referral ID Status Reason Start Date Expiration Date V isits Requested Visits Authorized [id number] Closed Auto-Generate d Referral 07/29/2022 08/28/2023 1 1 [facility] for visit Narrative* Diagnostic Procedure Only (Routine) - Closed Specialty Diagnoses / Procedures Referred By Contac t Referred To Contact XR IMAGING Diagnoses Neuroma Procedures XR FOOT GENERAL 3V AP/LAT/OBL LEFT RADEX FOOT COMPLETE MINIMUM 3 VIEWS Alisha Ta [address] [place] [address] [place] [address] Referral ID Status Reason Start Date Expiration Date V isits Requested Visits Authorized [id number] Closed Auto-Generate d Referral 01/07/2024 02/05/2025 1 1 [facility] Summary Purpose Family History No Family History Records FoundNo Family History Records FoundNo Family History Records FoundNo Family History Records Found Advance Directives No Advanced Directives Records FoundDocuments on File Type Date Recorded Patient Report Checker Expl anation Advance Directive(s) 08/10/2017 2:23 PM Documents on File Type Date Recorded Patient Report Checker Expl anation Advance Directive(s) 08/10/2017 2:23 PM Reason for Referral Specialty Diagnoses / Procedures Referred By Contac t Referred To Contact MR IMAGING Diagnoses Weight loss Dizziness Balance disorder Tremor of right hand Procedures MRI BRAIN WO IVCON MRI BRAIN BRAIN STEM W/O CONTRAST MATERIAL Hubert Forrest MD [address] [place] [address] Mr Imaging Referral ID Status Reason Start Date Expiration Date Visits Requested Visits Authorized [id number] Authorized Auto-Generat ed Referral 10/06/2022 11/05/2023 1 1 Specialty Diagnoses / Procedures Referred By Contac t Referred To Contact MR IMAGING Diagnoses Weight loss Dizziness Balance disorder Tremor of right hand Procedures MRI BRAIN WO IVCON MRI BRAIN BRAIN STEM W/O CONTRAST MATERIAL Hubert Forrest MD [address] [place] [address] [place] [address] Referral ID Status Reason Start Date Expiration Date V isits Requested Visits Authorized [id number] Closed Auto-Generate d Referral 10/06/2022 11/05/2023 1 1 Specialty Diagnoses / Procedures Referred By Contac t Referred To Contact Podiatry Diagnoses Nail fungus Pain around toenail, left foot Procedures CONSULT TO PODIATRY OFFICE/OUTPATIENT NEW HIGH MDM 60 MINUTES Ban Omer APRN.AUTOMATIC SILK SCREEN PRINTER [address] [place] [address] Referral ID Status Reason Start Date Expiration Date Visits Requested Visits Authorized [id number] Authorized PCP Requested Referral 10/22/2023 10/21/2024 1 1 Specialty Diagnoses / Procedures Referred By Contac t Referred To Contact Neurology Diagnoses Cognitive changes Procedures CONSULT TO NEUROLOGY OFFICE/OUTPATIENT NEW HIGH MDM 60 MINUTES Ban Omer, NEGRO.AUTOMATIC SILK SCREEN PRINTER [address] [place] [address] Referral ID Status Reason Start Date Expiration Date Visits Requested Visits Authorized [id number] Authorized PCP Requested Referral 11/30/2023 11/29/2024 1 1 Additional Source Comments INFORMATION SOURCE (unrecogn ized section and content) DATE CREATED AUTHOR 12/08/2017 [facility] DATE CREATED AUTHOR AUTHOR'S ORGANIZ ATION 04/15/2018 [facility] DATE CREATED AUTHOR AUTHOR'S ORGANIZ ATION 06/04/2023 [facility] DATE CREATED AUTHOR AUTHOR'S ORGANIZ ATION 11/23/2024 [facility] Source Comments (unrecognize d section and content) In the event this informatio n is protected by the Federal Confidentiality of Alcohol and Drug Abuse Patient Records regulations: The Federal rules restrict any use of the information to criminally investigate or prosecute any alcohol or drug abuse patient.[facility] the event this information is protected by the Federal Confidentiality of Alcohol and Drug Abuse Patient Records regulations: The Federal rules restrict any use of the information to criminally investigate or prosecute any alcohol or drug abuse patient.[facility] HospitalIn the event this information is protected by the Federal Confidentiality of Alcohol and Drug Abuse Patient Records regulations: The Federal rules restrict any use of the information to criminally investigate or prosecute any alcohol or drug abuse patient.[facility] HospitalIn the event this information is protected by the Federal Confidentiality of Alcohol and Drug Abuse Patient Records regulations: The Federal rules restrict any use of the information to criminally investigate or prosecute any alcohol or drug abuse patient.[facility] HospitalIn the event this information is protected by the Federal Confidentiality of Alcohol and Drug Abuse Patient Records regulations: The Federal rules restrict any use of the information to criminally investigate or prosecute any alcohol or drug abuse patient.[facility] HospitalIn the event this information is protected by the Federal Confidentiality of Alcohol and Drug Abuse Patient Records regulations: The Federal rules restrict any use of the information to criminally investigate or prosecute any alcohol or drug abuse patient.[facility] HospitalIn the event this information is protected by the Federal Confidentiality of Alcohol and Drug Abuse Patient Records regulations: The Federal rules restrict any use of the information to criminally investigate or prosecute any alcohol or drug abuse patient.[facility] HospitalIn the event this information is protected by the Federal Confidentiality of Alcohol and Drug Abuse Patient Records regulations: The Federal rules restrict any use of the information to criminally investigate or prosecute any alcohol or drug abuse patient.[facility] HospitalIn the event this information is protected by the Federal Confidentiality of Alcohol and Drug Abuse Patient Records regulations: The Federal rules restrict any use of the information to criminally investigate or prosecute any alcohol or drug abuse patient.[facility] HospitalIn the event this information is protected by the Federal Confidentiality of Alcohol and Drug Abuse Patient Records regulations: The Federal rules restrict any use of the information to criminally investigate or prosecute any alcohol or drug abuse patient.[facility] HospitalIn the event this information is protected by the Federal Confidentiality of Alcohol and Drug Abuse Patient Records regulations: The Federal rules restrict any use of the information to criminally investigate or prosecute any alcohol or drug abuse patient.[facility] HospitalIn the event this information is protected by the Federal Confidentiality of Alcohol and Drug Abuse Patient Records regulations: The Federal rules restrict any use of the information to criminally investigate or prosecute any alcohol or drug abuse patient.[facility] HospitalIn the event this information is protected by the Federal Confidentiality of Alcohol and Drug Abuse Patient Records regulations: The Federal rules restrict any use of the information to criminally investigate or prosecute any alcohol or drug abuse patient.[facility] HospitalIn the event this information is protected by the Federal Confidentiality of Alcohol and Drug Abuse Patient Records regulations: The Federal rules restrict any use of the information to criminally investigate or prosecute any alcohol or drug abuse patient.[facility] HospitalIn the event this information is protected by the Federal Confidentiality of Alcohol and Drug Abuse Patient Records regulations: The Federal rules restrict any use of the information to criminally investigate or prosecute any alcohol or drug abuse patient.[facility] HospitalIn the event this information is protected by the Federal Confidentiality of Alcohol and Drug Abuse Patient Records regulations: The Federal rules restrict any use of the information to criminally investigate or prosecute any alcohol or drug abuse patient.[facility] HospitalIn the event this information is protected by the Federal Confidentiality of Alcohol and Drug Abuse Patient Records regulations: The Federal rules restrict any use of the information to criminally investigate or prosecute any alcohol or drug abuse patient.[facility] HospitalIn the event this information is protected by the Federal Confidentiality of Alcohol and Drug Abuse Patient Records regulations: The Federal rules restrict any use of the information to criminally investigate or prosecute any alcohol or drug abuse patient.[facility] HospitalIn the event this information is protected by the Federal Confidentiality of Alcohol and Drug Abuse Patient Records regulations: The Federal rules restrict any use of the information to criminally investigate or prosecute any alcohol or drug abuse patient.[facility] HospitalIn the event this information is protected by the Federal Confidentiality of Alcohol and Drug Abuse Patient Records regulations: The Federal rules restrict any use of the information to criminally investigate or prosecute any alcohol or drug abuse patient.[facility] HospitalIn the event this information is protected by the Federal Confidentiality of Alcohol and Drug Abuse Patient Records regulations: The Federal rules restrict any use of the information to criminally investigate or prosecute any alcohol or drug abuse patient.[facility] HospitalIn the event this information is protected by the Federal Confidentiality of Alcohol and Drug Abuse Patient Records regulations: The Federal rules restrict any use of the information to criminally investigate or prosecute any alcohol or drug abuse patient.[facility] HospitalIn the event this information is protected by the Federal Confidentiality of Alcohol and Drug Abuse Patient Records regulations: The Federal rules restrict any use of the information to criminally investigate or prosecute any alcohol or drug abuse patient.[facility] HospitalIn the event this information is protected by the Federal Confidentiality of Alcohol and Drug Abuse Patient Records regulations: The Federal rules restrict any use of the information to criminally investigate or prosecute any alcohol or drug abuse patient.[facility] HospitalIn the event this information is protected by the Federal Confidentiality of Alcohol and Drug Abuse Patient Records regulations: The Federal rules restrict any use of the information to criminally investigate or prosecute any alcohol or drug abuse patient.[facility] HospitalIn the event this information is protected by the Federal Confidentiality of Alcohol and Drug Abuse Patient Records regulations: The Federal rules restrict any use of the information to criminally investigate or prosecute any alcohol or drug abuse patient.[facility] HospitalIn the event this information is protected by the Federal Confidentiality of Alcohol and Drug Abuse Patient Records regulations: The Federal rules restrict any use of the information to criminally investigate or prosecute any alcohol or drug abuse patient.[facility] HospitalIn the event this information is protected by the Federal Confidentiality of Alcohol and Drug Abuse Patient Records regulations: The Federal rules restrict any use of the information to criminally investigate or prosecute any alcohol or drug abuse patient.[facility] HospitalIn the event this information is protected by the Federal Confidentiality of Alcohol and Drug Abuse Patient Records regulations: The Federal rules restrict any use of the information to criminally investigate or prosecute any alcohol or drug abuse patient.[facility] HospitalIn the event this information is protected by the Federal Confidentiality of Alcohol and Drug Abuse Patient Records regulations: The Federal rules restrict any use of the information to criminally investigate or prosecute any alcohol or drug abuse patient.[facility] HospitalIn the event this information is protected by the Federal Confidentiality of Alcohol and Drug Abuse Patient Records regulations: The Federal rules restrict any use of the information to criminally investigate or prosecute any alcohol or drug abuse patient.[facility] HospitalIn the event this information is protected by the Federal Confidentiality of Alcohol and Drug Abuse Patient Records regulations: The Federal rules restrict any use of the information to criminally investigate or prosecute any alcohol or drug abuse patient.[facility] HospitalIn the event this information is protected by the Federal Confidentiality of Alcohol and Drug Abuse Patient Records regulations: The Federal rules restrict any use of the information to criminally investigate or prosecute any alcohol or drug abuse patient.[facility] HospitalIn the event this information is protected by the Federal Confidentiality of Alcohol and Drug Abuse Patient Records regulations: The Federal rules restrict any use of the information to criminally investigate or prosecute any alcohol or drug abuse patient.[facility] Reason for Visit (unrecogniz ed section and [...] STEM W/O CONTRAST MATERIAL Hubert Forrest MD [address] [place] [address] [place] [address] Referral ID Status Reason Start Date Expiration Date V isits Requested Visits Authorized [id number] Closed Auto-Generate d Referral 10/06/2022 11/05/2023 1 [...] NEW HIGH MDM 60 MINUTES Ban Omer, SYSTEMS LIBRARIAN.AUTOMATIC SILK SCREEN PRINTER [address] [place] [address] Referral ID Status Reason Start Date Expiration Date V isits Requested Visits Authorized [id number] Closed PCP Requested Referral 10/22/2023 10/21/2024 1 1 Reason Onset Date Comments Population Health Navigation Outreach 02/17/2024 [employer]rice [place] Reason Comments New Patient Memory difficulty, f amily hx alz Specialty Diagnoses / Procedures Referred By Namita t Referred To Contact Neurology Diagnoses Cognitive changes Procedures CONSULT TO NEUROLOGY OFFICE/OUTPATIENT NEW HIGH MDM 60 MINUTES Ban Omer, SYSTEMS LIBRARIAN.AUTOMATIC SILK SCREEN PRINTER [address] [place] [address] Referral ID Status Reason Start Date Expiration Date V isits Requested Visits Authorized [id number] Closed PCP Requested Referral 11/30/2023 11/29/2024 1 [...] Comments Population Health Navigation Outreach 11/22/2024 [facility] Teams (unrecognized sec tion and content) Cattle Feeder Relationship Specialty Start Date End Date Hubert Forrest MD [address] [facility] [place] [address] PCP - General 05/22/09 Cattle Feeder Relationship Specialty [place] [address] [place] [address] [place] [address] PCP - General 05/22/09 Cattle Feeder Relationship Specialty [place] [address] [place] [address] [place] [address] PCP - General 05/22/09 Cattle Feeder Relationship Specialty [place] [address] [place] [address] [place] [address] PCP - General 05/22/09 Cattle Feeder Relationship Specialty Start Date End Date Hubert Forrest MD [address] [facility] [place] [address] PCP - General 05/22/09 Cattle Feeder Relationship Specialty Start Date End Date Hubert Forrest MD [address] [facility] [place] [address] PCP - General 05/22/09 Cattle Feeder Relationship Specialty Start Date End Date Hubert Forrest MD [address] [facility] [place] [address] PCP - General 05/22/09 Cattle Feeder Relationship Specialty [place] [address] [place] [address] [place] [address] PCP - General 05/22/09 Cattle Feeder Relationship Specialty Start Date End Date Hubert Forrest MD [address] [place] [address] PCP - General 05/22/09 Cattle Feeder Relationship Specialty Start Date End Date Hubert Forrest MD [address] [place] [address] PCP - General 05/22/09 Cattle Feeder Relationship Specialty Start Date End Date Hubert Forrest MD [address] [place] [address] PCP - General 05/22/09 Cattle Feeder Relationship Specialty Start Date End Date Hubert Forrest MD [address] [place] [address] PCP - General 05/22/09 Cattle Feeder Relationship Specialty Start Date End Date Hubert Forrest MD [address] [place] [address] PCP - General 05/22/09 Cattle Feeder Relationship Specialty Start Date End Date Hubert Forrest MD [address] [place] [address] PCP - General 05/22/09 Cattle Feeder Relationship Specialty Start Date End Date Hubert Forrest MD [address] [place] [address] PCP - General 05/22/09 Cattle Feeder Relationship Specialty Start Date End Date Hubert Forrest MD [address] [place] [address] PCP - General 05/22/09 Cattle Feeder Relationship Specialty Start Date End Date Hubert Forrest MD [address] [place] [address] PCP - General 05/22/09 Cattle Feeder Relationship Specialty Start Date End Date Hubert Forerst MD [address] [place] [address] PCP - General 05/22/09 Cattle Feeder Relationship Specialty Start Date End Date Hubert Forrest MD [address] [place] [address] PCP - General 05/22/09 Cattle Feeder Relationship Specialty Start Date End Date Hubert Forrest MD [address] [place] [address] PCP - General 05/22/09 Cattle Feeder Relationship Specialty Start Date End Date Hubert Forrest MD [address] [place] [address] PCP - General 05/22/09 Cattle Feeder Relationship Specialty Start Date End Date Hubert Forrest MD [address] [place] [address] PCP - General 05/22/09 Cattle Feeder Relationship Specialty Start Date End Date Hubert Forrest MD [address] [place] [address] PCP - General 05/22/09 Cattle Feeder Relationship Specialty Start Date End Date Hubert Forrest MD [address] [place] [address] PCP - General 05/22/09 Cattle Feeder Relationship Specialty Start Date End Date Hubert Forrest MD [address] [place] [address] PCP - General 05/22/09 Cattle Feeder Relationship Specialty Start Date End Date Hubert Forrest MD [address] [place] [address] PCP - General 05/22/09 Cattle Feeder Relationship Specialty Start Date End Date Hubert Forrest MD [address] [place] [address] PCP - General 05/22/09 Ban Omer APRN.AUTOMATIC SILK SCREEN PRINTER [address] [place] [address] [facility] 05/22/24 Milton Bernard SYSTEMS LIBRARIAN.AUTOMATIC SILK SCREEN PRINTER [address] [place] [address] [facility] 05/31/24 Cattle Feeder Relationship Specialty Start Date End Date Hubert Forrest MD [address] [place] [address] PCP - General 05/22/09 Ban Omer SYSTEMS LIBRARIAN.AUTOMATIC SILK SCREEN PRINTER [address] [place] [address] [facility] 05/22/24 Milton Bernard APRN.AUTOMATIC SILK SCREEN PRINTER [address] [place] [address] [facility] 05/31/24 Cattle Feeder Relationship Specialty Start Date End Date Hubert Forrest MD [address] [place], [place] [id number] PCP - General 05/22/09 Ban Omer APRN.AUTOMATIC SILK SCREEN PRINTER [address] [place], [place] [id number] [facility]24 Milton Bernard APRN.AUTOMATIC SILK SCREEN PRINTER [address] [place], [place] [id number] [facility] 05/31/24 Cattle Feeder Relationship Specialty Start Date End Date Hubert Forrest MD [address] [place], [place] [id number] PCP - General 05/22/09 Milton Bernard, NEGRO.AUTOMATIC SILK SCREEN PRINTER [address] [place], [place] [id number] [facility] 05/31/24 FOR RECORDS PERTAINING TO PATIENTS WHO [...] BE BASED ON THE PRIMARY CLINICAL RECORDS. [facility] [employer] [facility]. provides no warranty or guarantee of the accuracy or completeness of information in this document.
== END | disposition home or self-care (01) ==
PROVIDERS: PCP Nurse Practitioner Family; Visit Provider Nurse Practitioner Family
DX: R25.2 Cramp and spasm (principal); R41.89 Other symptoms and signs involving cognitive functions and awareness; E61.1 Iron deficiency; E55.9 Vitamin D deficiency, unspecified; R73.03 Prediabetes
CPT/HCPCS: 36415; 80053; 82306; 82607; 82728; 82746; 83036; 83540; 83550; 83735; 84439; 84443; 85025